=== PATIENT | female | born 1960 | race Caucasian/White ===

== ENCOUNTER 2016-03-20 19:00 | Inpatient (IN) | payer OTHER ==
[~2016-03-20] VITALS: Ht 167.6 cm; Wt 93.4 kg
[2016-03-20] MEDS ORDERED: IV NORMAL SALINE 1000ML BAG 1,000 ML IV ONE (19:30)
[2016-03-20] MEDS ORDERED: ACETAMINOPHEN 500 MG TABLET PO ONE (19:30)
[2016-03-20 19:34] LABS: BASO % 1 % (0-3); EOS % 0 % (0-3); HEMATOCRIT 42.1 % (36.0-47.0); HEMOGLOBIN 14.3 g/dL (12.0-15.5); LYMPH # 0.7 x10^3/uL (1.0-4.8); LYMPH % 11 % (24-48); MEAN CORPUSCULAR HEMOGLOBIN 30 pg (25-35); MEAN CORPUSCULAR HGB CONC 34 g/dL (31-37); MEAN CORPUSCULAR VOLUME 89 fL (79-100); MONO % 7 % (0-9); NEUT % 82 % (31-73); PLATELET COUNT 171 x10^3/uL (140-400); RED BLOOD COUNT 4.75 x10^6/uL (3.50-5.40); RED CELL DISTRIBUTION WIDTH 13.3 % (11.5-14.5); WHITE BLOOD COUNT 6.7 x10^3/uL (4.0-11.0)
[2016-03-20 19:48] LABS: CREATININE 0.9 mg/dL (0.6-1.0); GFR 64.8; POTASSIUM 3.7 mmol/L (3.5-5.1)
[2016-03-20 19:54] LABS: ALBUMIN 3.8 g/dL (3.4-5.0); ALBUMIN/GLOBULIN RATIO 0.9 (1.0-1.7); TOTAL BILIRUBIN 0.4 mg/dL (0.2-1.0)
[2016-03-20 20:03] LABS: OBC FLU VALID
[2016-03-20] MEDS ORDERED: IPRATRPIUM/ALBUTEROL 0.5/2.5MG 3 ML NEBU. ONE (20:26)
[2016-03-20] MEDS ORDERED: IPRATRPIUM/ALBUTEROL 0.5/2.5MG 3 ML NEBU. NEB ONE (20:30)
--- NOTE | 2016-03-20 21:30 | EKG ---
[facility] [address] [place] [address] Test Date: 2016-03-20 Test Time: 19:16:56 Pat Name: MELY GRAY Department: Room: Gender: F Air Conditioning Unit Tester: : 1960 Requested By: STEVE RIVER Order Number: [id number] Reading MD: Milagros Anderson Measurements Intervals [place] Rate: 131 P: 71 DE: 134 QRS: 58 QRSD: 72 T: 23 QT: 290 QTc: 433 Interpretive Statements SINUS TACHYCARDIA QRS(T) CONTOUR ABNORMALITY CONSIDER INFERIOR MYOCARDIAL DAMAGE ABNORMAL ECG RI6.01 No previous ECG available for comparison Electronically Signed On 03-24-2016 8:25:59 MEASUREMENT TECHNICIAN by Milagros Anderson
[2016-03-20 22:17] LABS: BILIRUBIN,URINE NEGATIVE (NEG); GLUCOSE,URINE NEGATIVE (NEG); NITRITE,URINE NEGATIVE (NEG); PROTEIN,URINE NEGATIVE (NEG-TRACE); UROBILINOGEN,URINE 0.2 mg/dL (0.2 mg/dL)
[2016-03-20 22:23] LABS: BACTERIA,URINE 0 /HPF (0-FEW); RBC,URINE 0 /HPF (0-2); WBC,URINE 0 /HPF (0-4)
[2016-03-21] VITALS (8 sets, daily range): BP systolic 90–129; BP diastolic 37–70
[2016-03-21] MEDS ORDERED: ONDANSETRON PF 4 MG/2 ML VIAL. IV PRN ×2 (00:15→12:00)
[2016-03-21] MEDS ORDERED: ACETAMINOPHEN 325 MG TABLET. PO PRN ×2 (00:15→12:00)
[2016-03-21] MEDS ORDERED: OSELTAMIVIR 75 MG CAPSULE PO ONE (00:30)
[2016-03-21] MEDS: ALBUTEROL SULFATE 2.5 MG/3 ML NEBU. NEB PRN ×2 (01:30→05:54)
--- NOTE | 2016-03-21 02:03 | ED.ADGEN ---
Past Medical History Past Medical History: Other Additional Past Medical Histor: VERTIGO Past Surgical History: Other Additional Past Surgical Histo: R. BREAST LUMPECTOMY Additional Information: 1 PPD Alcohol Use: None Drug Use: None Adult General Chief Complaint Chief Complaint: SHORTNESS OF BREATH HPI HPI Patient is a 55 year old history of vertigo, obstructive sleep apnea with CPAP , tobacco abuse, who presents to the emergency department with complaint of generalized malaise, body ache, fever, cough for the past 2 days. Patient states that she has not taken any medications at home as she has an aspirin allergy and "was not sure what I could take". States that aspirin "makes me swelling and have a rash". Patient states she stopped smoking 2 days ago due to shortness of breath and cough, states that she has chest pain after coughing repetitively, and has had soreness throughout her entire body. She did not receive a flu vaccination this year. She does not a primary care provider, denies any weakness emesis or tingling, any injuries, possible positive sick contacts. Patient noted be febrile with a temperature 102.2 orally in the emergency department, heart rate is in the 1 teens to 120s, oxygen saturation is 93% on room air. Patient does not use oxygen at baseline. Denies any productive cough. Review of Systems Review of Systems Constitutional: Fever, chills, generalized malaise. Eyes: Denies change in visual acuity. [] HENT: Denies nasal congestion or sore throat. [] Respiratory: Cough, no productive. Shortness of breath. Cardiovascular: Chest pain with cough, no edema. GI: Denies abdominal pain, nausea, vomiting, bloody stools or diarrhea. [] : Denies dysuria. [] Musculoskeletal: Denies back pain or joint pain. [] Integument: Denies rash. [] Neurologic: Denies headache, focal weakness or sensory changes. [] Endocrine: Denies polyuria or polydipsia. [] Lymphatic: Denies swollen glands. [] Psychiatric: Denies depression or anxiety. [] Current Medications Current Medications Current Medications Medications (Trade) Dose Ordered Sig/Eddie Start Time Stop Time Status Last Admin Dose Admin Acetaminophen (Tylenol) 1,000 mg 1X ONCE 03/20/16 19:30 03/20/16 20:44 DC 03/20/16 20:16 1,000 MG Albuterol/ Ipratropium (Duoneb) 3 ml 1X ONCE 03/20/16 20:30 03/20/16 20:47 DC 03/20/16 20:35 3 ML Sodium Chloride (Iv Sodium Chloride 0.9% 1000ml Bag) 1,000 ml @ 1,000 mls/hr 1X ONCE 03/20/16 19:30 03/20/16 20:44 DC 03/20/16 20:15 1,000 MLS/HR Allergies Allergies Allergies Coded Allergies Type Severity Reaction Last Updated Verified aspirin Allergy Intermediate SWELLING AND RASH 03/20/16 Yes Physical Exam Physical Exam Constitutional: Well developed, well nourished, no acute distress, mildly diaphoretic in appearance. [Nasal cannula in place.] HENT: Normocephalic, atraumatic, bilateral external ears normal, oropharynx moist, no oral exudates, nose normal. [] Eyes: PERRLA, EOMI, conjunctiva normal, no discharge. [] Neck: Normal range of motion, no tenderness, supple, no stridor. [] Cardiovascular:Heart rate regular rhythm, no murmur, S1, S2, no rubs or gallops. Mildly tachycardic. [] Lungs & Thorax: Patient with diminished breath sounds at bases bilaterally, no wheezing, rhonchi or rales appreciated, no chest wall tenderness or crepitus.] Abdomen: Bowel sounds normal, soft, obese, no rebound, rigidity, no guarding, no tenderness, no masses, no pulsatile masses. [] Skin: Warm, dry, no erythema, no rash. [] Back: No tenderness, no CVA tenderness. [] Extremities: No tenderness, no cyanosis, no clubbing, ROM intact, no edema. Negative Homans sign. [] Neurologic: Alert and oriented X 3, normal motor function, normal sensory function, no focal deficits noted. [] Psychologic: Affect normal, judgement normal, mood normal. [] Current Patient Data Vital Signs Vital Signs Date Time Temp Pulse Resp B/P Pulse Ox O2 Delivery O2 Flow Rate FiO2 03/20/16 22:56 100 20 128/60 96 Nasal Cannula 3 03/20/16 19:10 102.2 102.2 Lab Values Laboratory Tests Test 03/20/16 19:03 03/20/16 19:16 03/20/16 19:28 Urine Collection Type Unknown Urine Color Yellow Urine Clarity Clear Urine pH 6.0 Urine Specific Ackerman <=1.005 Urine Protein Negativemg/dL (NEG-TRACE) Urine Glucose (UA) Negativemg/dL (NEG) Urine Ketones (Stick) Tracemg/dL (NEG) Urine Blood Negative (NEG) Urine Nitrite Negative (NEG) Urine Bilirubin Negative (NEG) Urine Urobilinogen Dipstick 0.2mg/dL (0.2 mg/dL) Urine Leukocyte Esterase Negative (NEG) Urine RBC 0/HPF (0-2) Urine WBC 0/HPF (0-4) Urine Bacteria 0/HPF (0-FEW) White Blood Count 6.7x10^3/uL (4.0-11.0) Red Blood Count 4.75x10^6/uL (3.50-5.40) Hemoglobin 14.3g/dL (12.0-15.5) Hematocrit 42.1% (36.0-47.0) Mean Corpuscular Volume 89fL (79-100) Mean Corpuscular Hemoglobin 30pg (25-35) Mean Corpuscular Hemoglobin Concent 34g/dL (31-37) Red Cell Distribution Width 13.3% (11.5-14.5) Platelet Count 171x10^3/uL (140-400) Neutrophils (%) (Auto) 82% (31-73) H Lymphocytes (%) (Auto) 11% (24-48) L Monocytes (%) (Auto) 7% (0-9) Eosinophils (%) (Auto) 0% (0-3) Basophils (%) (Auto) 1% (0-3) Neutrophils # (Auto) 5.5x10^3uL (1.8-7.7) Lymphocytes # (Auto) 0.7x10^3/uL (1.0-4.8) L Monocytes # (Auto) 0.4x10^3/uL (0.0-1.1) Eosinophils # (Auto) 0.0x10^3/uL (0.0-0.7) Basophils # (Auto) 0.0x10^3/uL (0.0-0.2) Sodium Level 138mmol/L (136-145) Potassium Level 3.7mmol/L (3.5-5.1) Chloride Level 100mmol/L (98-107) Carbon Dioxide Level 25mmol/L (21-32) Anion Gap 13 (6-14) Blood Urea Nitrogen 12mg/dL (7-20) Creatinine 0.9mg/dL (0.6-1.0) Estimated GFR (Cockcroft-Gault) 64.8 BUN/Creatinine Ratio 13 (6-20) Glucose Level 118mg/dL (70-99) H Lactic Acid Level 1.0mmol/L (0.4-2.0) Calcium Level 9.0mg/dL (8.5-10.1) Total Bilirubin 0.4mg/dL (0.2-1.0) Aspartate Amino Transferase (AST) 33U/L (15-37) Alanine Aminotransferase (ALT) 48U/L (14-59) Alkaline Phosphatase 91U/L (46-116) Troponin I Quantitative < 0.017ng/mL (0.000-0.055) PG-Ijd-L-Type Natriuretic Peptide 44pg/mL (0-124) Total Protein 8.0g/dL (6.4-8.2) Albumin 3.8g/dL (3.4-5.0) Albumin/Globulin Ratio 0.9 (1.0-1.7) L Influenza Type A Antigen Positive (NEGATIVE) Influenza Type B Antigen Negative (NEGATIVE) Laboratory Tests 03/20/16 19:16 Laboratory Tests 03/20/16 19:16 EKG EKG 191: Sinus tachycardia, heart rate 131 bpm, upright axis, QTC of 433, MA 134, QRS 72, contour abnormalities noted in the inferior leads and anterior septal leads, abnormal ECG, does not meet STEMI criteria. [] Radiology/Procedures Radiology/Procedures Chest x-ray: One view: Patient with normal cardiopulmonary silhouette, no infiltrates or effusions, no pneumothorax, no soft tissue or bony abnormalities identified. As interpreted by me. [] Course & Med Decision Making Course & Med Decision Making Pertinent Labs and Imaging studies reviewed. (See chart for details) Patient received acetaminophen and IV fluids in the ED, along with chest x-ray was unremarkable, and basic laboratory studies which were unremarkable as well aside from a positive influenza A test. Patient's examination and history are consistent with a viral illness from influenza A. She received an inability treatment, and stated that she was feeling better, I discussed admission with the patient, she states that she did want to go home however we did ambulatory trial in the emergency department, patient's oxygen saturation did drop to 87% on room air. Patient was agreeable for [facility] that point, findings as above were discussed with Dr. Arellano of internal medicine, patient accepted to her service as a full admission to the medical telemetry floor, will continue oxygen supplementation, Tamiflu administration, IV fluids, and supportive care. Patient remained stable and comfortable, with resolution of her fever, awaiting transfer to floor. Dragon Disclaimer Dragon Disclaimer This electronic medical record was generated, in whole or in part, using a voice recognition dictation system. Departure Impression: Primary Impression: Respiratory failure Additional Impression: Influenza Disposition: 09 ADMITTED INPATIENT Admitting Physician: Other Condition: IMPROVED Problem Qualifiers Primary Impression: Respiratory failure Chronicity: acute Respiratory failure complication: hypoxia Qualified Code : J96.01 - Acute respiratory failure with hypoxia STEVE RIVER DO Mar 21, 2016 02:03
[2016-03-21] MEDS ORDERED: IPRATRPIUM/ALBUTEROL 0.5/2.5MG 3 ML NEBU. NEB SCH (08:00)
--- NOTE | 2016-03-21 08:27 | RAD ---
Indication cough and shortness of breath. A single view of the chest was obtained. No prior imaging of the chest is available. The heart and pulmonary vessels appear normal. The lungs are clear. There is no pleural fluid or pneumothorax. Bony structures appear grossly intact. IMPRESSION: No acute or focal process is seen in the chest
[2016-03-21] MEDS ORDERED: methylPREDNISolone SOD SUCC PF 40 MG/ML VIAL. IV SCH (09:00)
[2016-03-21] MEDS: OSELTAMIVIR 75 MG CAPSULE PO SCH ×2 (09:39→21:14)
--- NOTE | 2016-03-21 09:51 | ACF ---
Admission Forms Criteria RESPIRATORY FAILURE [facility] Clinical Indications for Admission to Inpatient Care (Place 'X' for any and all applicable criteria): Hospital admission is needed for appropriate care of the patient because of acute respiratory failure or insufficiency as indicated by ANY ONE of the following(1)(2)(3)(4)(5)(6)(7)(8): [X]I. Mechanical ventilation needed (acute invasive or noninvasive) [ ]II. Severe ventilation deficit as indicated by ANY ONE of the following (9) [ ]a) Respiratory acidosis (pH less than 7.32 and partial pressure of carbon dioxide greater than 40 mm Hg (5.3 kPa)) [ ]b) Partial pressure of carbon dioxide greater than 44 mm Hg (5.9 kPa ) (new) [ ]c) Airflow measurements less than 25% of predicted (eg, peak expiratory flow rate less than 100 L/minute) [ ]d) Forced vital capacity less than 15 mL/kg of ideal body weight, or 50% decrease in vital capacity from baseline [ ]III. Noncardiac pulmonary edema not resolving with rapid emergency treatment (8) [ ]IV. Severe respiratory distress as indicated by ANY ONE of the following: [ ]a) Severe tachypnea (respiratory rate greater than 30, greater than 45 for 6-month-old, greater than 60 for ) [ ]b) Severe hypoxemia (partial pressure of oxygen less than 50 mm Hg ( 6.7 kPa) on greater than 50% oxygen or partial pressure of oxygen to FIO2 ratio less than 200) [ ]c) Mental status deterioration from respiratory disease [ ]V. Airway obstruction or inadequate protection [A](10)(11) The original [employer] content created by [employer] has been revised. The portions of the content which have been revised are identified through the use of italic text or in bold, and [employer] has neither reviewed nor approved the modified material. All other unmodified content is copyright [employer]. Please see references footnoted in the original [employer] edition 2016 Admission Criteria Met?: Yes ELMO LOUIS Mar 21, 2016 09:51
[2016-03-21] MEDS ORDERED: no home meds (10:13)
[2016-03-21] MEDS ORDERED: ALBUTEROL SULFATE 2.5 MG/3 ML NEBU. NEB PRN (12:00)
[2016-03-21] MEDS: IPRATRPIUM/ALBUTEROL 0.5/2.5MG 3 ML NEBU. NEB SCH ×3 (12:00→19:48)
[2016-03-21] MEDS ORDERED: IV NORMAL SALINE 1000ML BAG 1,000 ML IV ONE (12:00)
[2016-03-21] MEDS: GUAIFENESIN 200 MG/10 ML LIQUID. PO PRN ×3 (12:22→23:42)
--- NOTE | 2016-03-21 14:00 | PDOC1 ---
History and Physical Date of Admission Date of Admission 03/21/16 Identification/Chief Complaint Chief Complaint sob Problems: Source Source: Chart review, Patient History of Present Illness History of Present Illness HPI HPI Patient is a 55 year old history of vertigo, obstructive sleep apnea with CPAP , tobacco abuse, comes for ER for generalized malaise, body ache, fever, cough for the past 2 days. Patient states that she has not taken any medications at home as she has an aspirin allergy and "was not sure what I could take". States that aspirin " makes me swelling and have a rash". Patient states she stopped smoking 2 days ago due to shortness of breath and cough, no chest pain, + body ache. She did not receive a flu vaccination this year. She does not a primary care provider, denies any weakness emesis or tingling, any injuries, possible positive sick contacts. Patient noted be febrile with a temperature 102.2 orally in the emergency department, heart rate is in the 1 teens to 120s, oxygen saturation is 93% on room air. Patient does not use oxygen at baseline. Denies any productive cough. + flu Past Medical History Past Medical History none Past Surgical History Past Surgical History: Breast Biopsy Family History Family History: No Significant, Other Social History Smoke: <1 pack per day ALCOHOL: social Drugs: None Current Problem List Problem List Problems Medical Problems: (1) Influenza Status: Acute (2) Respiratory failure Status: Acute Current Medications Current Medications Current Medications Medications (Trade) Dose Ordered Sig/Eddie Start Time Stop Time Status Last Admin Dose Admin Acetaminophen (Tylenol) 650 mg PRN Q6HRS PRN 03/21/16 12:00 Albuterol Sulfate (Ventolin Neb Soln) 2.5 mg PRN Q4HRS PRN 03/21/16 12:00 03/21/16 12:00 DC Albuterol/ Ipratropium (Duoneb) 3 ml RTQID 03/21/16 12:00 03/21/16 12:00 3 ML Enoxaparin Sodium 40 mg 40 mg Q24H 03/21/16 16:00 Guaifenesin (Robitussin) 200 mg PRN Q4HRS PRN 03/21/16 12:00 03/21/16 12:22 200 MG Methylprednisolone Sodium Succinate (Solu-Medrol 40mg Vial) 40 mg DAILY 03/22/16 09:00 Ondansetron HCl (Zofran) 4 mg PRN Q6HRS PRN 03/21/16 12:00 Oseltamivir Phosphate (Tamiflu) 75 mg BID 03/21/16 09:00 03/26/16 08:59 03/21/16 09:39 75 MG Sodium Chloride (Iv Sodium Chloride 0.9% 1000ml Bag) 1,000 ml @ 100 mls/hr 1X ONCE 03/21/16 12:00 03/21/16 21:59 03/21/16 12:22 100 MLS/HR Allergies Allergies Allergies Coded Allergies Type Severity Reaction Last Updated Verified aspirin Allergy Intermediate SWELLING AND RASH 03/20/16 Yes ROS Review of System CONSTITUTIONAL: No fever or chills EYES: No recent changes SKIN: No rash or itching CARDIOVASCULAR: No chest pain, syncope, palpitations, or edema RESPIRATORY: No SOB or cough GASTROINTESTINAL: No nausea, vomiting or abdominal pain NEUROLOGICAL: No headaches or weakness ENDOCRINE: No cold or heat intolerance GENITOURINARY: No urgency or frequency of urination MUSCULOSKELETAL: No back pain or joint pain LYMPHATICS: No enlarged lymph nodes PSYCHIATRIC: No anxiety or depression Physical Exam Physical Exam GEN.: No apparent distress. Alert and oriented. HEENT: Head is normocephalic, atraumatic NECK: Supple. LUNGS: Clear to auscultation. HEART: RRR, S1, S2 present. Peripheral pulses intact ABDOMEN: Soft, nontender. Positive bowel sounds. EXTREMITIES: Without any cyanosis. NEUROLOGIC: Normal speech, normal tone PSYCHIATRIC: Normal affect, normal mood. SKIN: No ulcerations Vitals Vitals Vital Signs Date Time Temp Pulse Resp B/P Pulse Ox O2 Delivery O2 Flow Rate FiO2 03/21/16 12:01 Nasal Cannula 1.0 03/21/16 11:00 100.6 106 18 115/53 94 100.6 Labs Labs Laboratory Tests Test 03/20/16 19:03 03/20/16 19:16 03/20/16 19:28 Urine Collection Type Unknown Urine Color Yellow Urine Clarity Clear Urine pH 6.0 Urine Specific Shelly <=1.005 Urine Protein Negativemg/dL (NEG-TRACE) Urine Glucose (UA) Negativemg/dL (NEG) Urine Ketones (Stick) Tracemg/dL (NEG) Urine Blood Negative (NEG) Urine Nitrite Negative (NEG) Urine Bilirubin Negative (NEG) Urine Urobilinogen Dipstick 0.2mg/dL (0.2 mg/dL) Urine Leukocyte Esterase Negative (NEG) Urine RBC 0/HPF (0-2) Urine WBC 0/HPF (0-4) Urine Bacteria 0/HPF (0-FEW) White Blood Count 6.7x10^3/uL (4.0-11.0) Red Blood Count 4.75x10^6/uL (3.50-5.40) Hemoglobin 14.3g/dL (12.0-15.5) Hematocrit 42.1% (36.0-47.0) Mean Corpuscular Volume 89fL (79-100) Mean Corpuscular Hemoglobin 30pg (25-35) Mean Corpuscular Hemoglobin Concent 34g/dL (31-37) Red Cell Distribution Width 13.3% (11.5-14.5) Platelet Count 171x10^3/uL (140-400) Neutrophils (%) (Auto) 82% (31-73) Lymphocytes (%) (Auto) 11% (24-48) Monocytes (%) (Auto) 7% (0-9) Eosinophils (%) (Auto) 0% (0-3) Basophils (%) (Auto) 1% (0-3) Neutrophils # (Auto) 5.5x10^3uL (1.8-7.7) Lymphocytes # (Auto) 0.7x10^3/uL (1.0-4.8) Monocytes # (Auto) 0.4x10^3/uL (0.0-1.1) Eosinophils # (Auto) 0.0x10^3/uL (0.0-0.7) Basophils # (Auto) 0.0x10^3/uL (0.0-0.2) Sodium Level 138mmol/L (136-145) Potassium Level 3.7mmol/L (3.5-5.1) Chloride Level 100mmol/L (98-107) Carbon Dioxide Level 25mmol/L (21-32) Anion Gap 13 (6-14) Blood Urea Nitrogen 12mg/dL (7-20) Creatinine 0.9mg/dL (0.6-1.0) Estimated GFR (Cockcroft-Gault) 64.8 BUN/Creatinine Ratio 13 (6-20) Glucose Level 118mg/dL (70-99) Lactic Acid Level 1.0mmol/L (0.4-2.0) Calcium Level 9.0mg/dL (8.5-10.1) Total Bilirubin 0.4mg/dL (0.2-1.0) Aspartate Amino Transf (AST/SGOT) 33U/L (15-37) Alanine Aminotransferase (ALT/SGPT) 48U/L (14-59) Alkaline Phosphatase 91U/L (46-116) Troponin I Quantitative < 0.017ng/mL (0.000-0.055) BJ-Gpv-C-Type Natriuretic Peptide 44pg/mL (0-124) Total Protein 8.0g/dL (6.4-8.2) Albumin 3.8g/dL (3.4-5.0) Albumin/Globulin Ratio 0.9 (1.0-1.7) Influenza Type A Antigen Positive (NEGATIVE) Influenza Type B Antigen Negative (NEGATIVE) Laboratory Tests Test 03/20/16 19:03 03/20/16 19:16 03/20/16 19:28 Urine Collection Type Unknown Urine Color Yellow Urine Clarity Clear Urine pH 6.0 Urine Specific Shelly <=1.005 Urine Protein Negativemg/dL (NEG-TRACE) Urine Glucose (UA) Negativemg/dL (NEG) Urine Ketones (Stick) Tracemg/dL (NEG) Urine Blood Negative (NEG) Urine Nitrite Negative (NEG) Urine Bilirubin Negative (NEG) Urine Urobilinogen Dipstick 0.2mg/dL (0.2 mg/dL) Urine Leukocyte Esterase Negative (NEG) Urine RBC 0/HPF (0-2) Urine WBC 0/HPF (0-4) Urine Bacteria 0/HPF (0-FEW) White Blood Count 6.7x10^3/uL (4.0-11.0) Red Blood Count 4.75x10^6/uL (3.50-5.40) Hemoglobin 14.3g/dL (12.0-15.5) Hematocrit 42.1% (36.0-47.0) Mean Corpuscular Volume 89fL (79-100) Mean Corpuscular Hemoglobin 30pg (25-35) Mean Corpuscular Hemoglobin Concent 34g/dL (31-37) Red Cell Distribution Width 13.3% (11.5-14.5) Platelet Count 171x10^3/uL (140-400) Neutrophils (%) (Auto) 82% (31-73) Lymphocytes (%) (Auto) 11% (24-48) Monocytes (%) (Auto) 7% (0-9) Eosinophils (%) (Auto) 0% (0-3) Basophils (%) (Auto) 1% (0-3) Neutrophils # (Auto) 5.5x10^3uL (1.8-7.7) Lymphocytes # (Auto) 0.7x10^3/uL (1.0-4.8) Monocytes # (Auto) 0.4x10^3/uL (0.0-1.1) Eosinophils # (Auto) 0.0x10^3/uL (0.0-0.7) Basophils # (Auto) 0.0x10^3/uL (0.0-0.2) Sodium Level 138mmol/L (136-145) Potassium Level 3.7mmol/L (3.5-5.1) Chloride Level 100mmol/L (98-107) Carbon Dioxide Level 25mmol/L (21-32) Anion Gap 13 (6-14) Blood Urea Nitrogen 12mg/dL (7-20) Creatinine 0.9mg/dL (0.6-1.0) Estimated GFR (Cockcroft-Gault) 64.8 BUN/Creatinine Ratio 13 (6-20) Glucose Level 118mg/dL (70-99) Lactic Acid Level 1.0mmol/L (0.4-2.0) Calcium Level 9.0mg/dL (8.5-10.1) Total Bilirubin 0.4mg/dL (0.2-1.0) Aspartate Amino Transf (AST/SGOT) 33U/L (15-37) Alanine Aminotransferase (ALT/SGPT) 48U/L (14-59) Alkaline Phosphatase 91U/L (46-116) Troponin I Quantitative < 0.017ng/mL (0.000-0.055) TW-Ukh-E-Type Natriuretic Peptide 44pg/mL (0-124) Total Protein 8.0g/dL (6.4-8.2) Albumin 3.8g/dL (3.4-5.0) Albumin/Globulin Ratio 0.9 (1.0-1.7) Influenza Type A Antigen Positive (NEGATIVE) Influenza Type B Antigen Negative (NEGATIVE) VTE Prophylaxis Ordered VTE Prophylaxis Devices: Yes VTE Pharmacological Prophylaxi: Yes Assessment/Plan Assessment/Plan 1. DYSPNEA with flu + 2. influ a+ 3. obesity 4. smoker 5. KEVEN plan: 1. pulm consult 2. cont flu treatment 3. duoneb 4. decrease solumedrol to daily 5. IVF 6. DVT, GI PPX CPAP NEWTON POWERS MD Mar 21, 2016 14:00
--- NOTE | 2016-03-21 15:35 | PDOC ---
PULMONARY PROGRESS NOTES Vitals Vital Signs Date Time Temp Pulse Resp B/P Pulse Ox O2 Delivery O2 Flow Rate FiO2 03/21/16 15:23 Nasal Cannula 1.0 03/21/16 11:00 100.6 106 18 115/53 94 100.6 Labs Laboratory Tests Test 03/20/16 19:03 03/20/16 19:16 03/20/16 19:28 Urine Collection Type Unknown Urine Color Yellow Urine Clarity Clear Urine pH 6.0 Urine Specific [place] <=1.005 Urine Protein Negativemg/dL (NEG-TRACE) Urine Glucose (UA) Negativemg/dL (NEG) Urine Ketones (Stick) Tracemg/dL (NEG) Urine Blood Negative (NEG) Urine Nitrite Negative (NEG) Urine Bilirubin Negative (NEG) Urine Urobilinogen Dipstick 0.2mg/dL (0.2 mg/dL) Urine Leukocyte Esterase Negative (NEG) Urine RBC 0/HPF (0-2) Urine WBC 0/HPF (0-4) Urine Bacteria 0/HPF (0-FEW) White Blood Count 6.7x10^3/uL (4.0-11.0) Red Blood Count 4.75x10^6/uL (3.50-5.40) Hemoglobin 14.3g/dL (12.0-15.5) Hematocrit 42.1% (36.0-47.0) Mean Corpuscular Volume 89fL (79-100) Mean Corpuscular Hemoglobin 30pg (25-35) Mean Corpuscular Hemoglobin Concent 34g/dL (31-37) Red Cell Distribution Width 13.3% (11.5-14.5) Platelet Count 171x10^3/uL (140-400) Neutrophils (%) (Auto) 82% (31-73) Lymphocytes (%) (Auto) 11% (24-48) Monocytes (%) (Auto) 7% (0-9) Eosinophils (%) (Auto) 0% (0-3) Basophils (%) (Auto) 1% (0-3) Neutrophils # (Auto) 5.5x10^3uL (1.8-7.7) Lymphocytes # (Auto) 0.7x10^3/uL (1.0-4.8) Monocytes # (Auto) 0.4x10^3/uL (0.0-1.1) Eosinophils # (Auto) 0.0x10^3/uL (0.0-0.7) Basophils # (Auto) 0.0x10^3/uL (0.0-0.2) Sodium Level 138mmol/L (136-145) Potassium Level 3.7mmol/L (3.5-5.1) Chloride Level 100mmol/L (98-107) Carbon Dioxide Level 25mmol/L (21-32) Anion Gap 13 (6-14) Blood Urea Nitrogen 12mg/dL (7-20) Creatinine 0.9mg/dL (0.6-1.0) Estimated GFR (Cockcroft-Gault) 64.8 BUN/Creatinine Ratio 13 (6-20) Glucose Level 118mg/dL (70-99) Lactic Acid Level 1.0mmol/L (0.4-2.0) Calcium Level 9.0mg/dL (8.5-10.1) Total Bilirubin 0.4mg/dL (0.2-1.0) Aspartate Amino Transf (AST/SGOT) 33U/L (15-37) Alanine Aminotransferase (ALT/SGPT) 48U/L (14-59) Alkaline Phosphatase 91U/L (46-116) Troponin I Quantitative < 0.017ng/mL (0.000-0.055) [id number]-Sql-[id number]-Type Natriuretic Peptide 44pg/mL (0-124) Total Protein 8.0g/dL (6.4-8.2) Albumin 3.8g/dL (3.4-5.0) Albumin/Globulin Ratio 0.9 (1.0-1.7) Influenza Type A Antigen Positive (NEGATIVE) Influenza Type B Antigen Negative (NEGATIVE) Laboratory Tests Test 03/20/16 19:03 03/20/16 19:16 03/20/16 19:28 Urine Collection Type Unknown Urine Color Yellow Urine Clarity Clear Urine pH 6.0 Urine Specific [place] <=1.005 Urine Protein Negativemg/dL (NEG-TRACE) Urine Glucose (UA) Negativemg/dL (NEG) Urine Ketones (Stick) Tracemg/dL (NEG) Urine Blood Negative (NEG) Urine Nitrite Negative (NEG) Urine Bilirubin Negative (NEG) Urine Urobilinogen Dipstick 0.2mg/dL (0.2 mg/dL) Urine Leukocyte Esterase Negative (NEG) Urine RBC 0/HPF (0-2) Urine WBC 0/HPF (0-4) Urine Bacteria 0/HPF (0-FEW) White Blood Count 6.7x10^3/uL (4.0-11.0) Red Blood Count 4.75x10^6/uL (3.50-5.40) Hemoglobin 14.3g/dL (12.0-15.5) Hematocrit 42.1% (36.0-47.0) Mean Corpuscular Volume 89fL (79-100) Mean Corpuscular Hemoglobin 30pg (25-35) Mean Corpuscular Hemoglobin Concent 34g/dL (31-37) Red Cell Distribution Width 13.3% (11.5-14.5) Platelet Count 171x10^3/uL (140-400) Neutrophils (%) (Auto) 82% (31-73) Lymphocytes (%) (Auto) 11% (24-48) Monocytes (%) (Auto) 7% (0-9) Eosinophils (%) (Auto) 0% (0-3) Basophils (%) (Auto) 1% (0-3) Neutrophils # (Auto) 5.5x10^3uL (1.8-7.7) Lymphocytes # (Auto) 0.7x10^3/uL (1.0-4.8) Monocytes # (Auto) 0.4x10^3/uL (0.0-1.1) Eosinophils # (Auto) 0.0x10^3/uL (0.0-0.7) Basophils # (Auto) 0.0x10^3/uL (0.0-0.2) Sodium Level 138mmol/L (136-145) Potassium Level 3.7mmol/L (3.5-5.1) Chloride Level 100mmol/L (98-107) Carbon Dioxide Level 25mmol/L (21-32) Anion Gap 13 (6-14) Blood Urea Nitrogen 12mg/dL (7-20) Creatinine 0.9mg/dL (0.6-1.0) Estimated GFR (Cockcroft-Gault) 64.8 BUN/Creatinine Ratio 13 (6-20) Glucose Level 118mg/dL (70-99) Lactic Acid Level 1.0mmol/L (0.4-2.0) Calcium Level 9.0mg/dL (8.5-10.1) Total Bilirubin 0.4mg/dL (0.2-1.0) Aspartate Amino Transf (AST/SGOT) 33U/L (15-37) Alanine Aminotransferase (ALT/SGPT) 48U/L (14-59) Alkaline Phosphatase 91U/L (46-116) Troponin I Quantitative < 0.017ng/mL (0.000-0.055) TJ-Wvg-N-Type Natriuretic Peptide 44pg/mL (0-124) Total Protein 8.0g/dL (6.4-8.2) Albumin 3.8g/dL (3.4-5.0) Albumin/Globulin Ratio 0.9 (1.0-1.7) Influenza Type A Antigen Positive (NEGATIVE) Influenza Type B Antigen Negative (NEGATIVE) Medications Active Scripts Medications Dose Route/Sig Days Date Category [no home meds] 03/21/16 Reported Impression . FULL NOTE DICTATED DI WITH CURRENT RX AUSTIN BENNETT MD Mar 21, 2016 15:35
[2016-03-21] MEDS: ENOXAPARIN 40 MG/0.4 ML DISP.SYRIN. SQ SCH (16:00)
[2016-03-22 02:55] VITALS: BP 132/63
--- NOTE | 2016-03-22 04:37 | CONS ---
DATE OF CONSULTATION: 03/21/2016 ATTENDING PHYSICIAN: Sidney Nicole MD REASON FOR CONSULTATION: The patient is seen in pulmonary consultation at the request of Dr. Nicole for increasing shortness of air. HISTORY OF PRESENT ILLNESS: The patient is a 55-year-old with a history of obstructive sleep apnea on CPAP at home, presented with 2-3 day history of body aches, malaise, vertigo, cough, mostly nonproductive. She was evaluated in the Emergency Room, had a chest x-ray, which I personally reviewed, there was no acute infiltrate. She had serology screen for influenza which was positive for A. She is admitted. I was asked to see her in consultation. PAST MEDICAL HISTORY: Obstructive sleep apnea, tobacco dependence, no documented history of COPD. PAST SURGICAL HISTORY: Status post breast biopsy. FAMILY HISTORY: No family history of early lung disorder. SOCIAL HISTORY: She continues to smoke. Denies any alcohol intake. REVIEW OF SYSTEMS: As indicated above, otherwise, a 10-point system was reviewed and negative. CURRENT MEDICATIONS: List was reviewed. Please see the MRAD. PHYSICAL EXAMINATION: VITAL SIGNS: She has had a T-max today of 100.6, otherwise vital signs have been stable. HEENT: Eyes, the sclerae were nonicteric. NECK: Jugular venous distention was not elevated. No lymphadenopathy. CHEST: Full expansion. LUNGS: Coarse breath sounds, no wheezes. CARDIOVASCULAR: Regular rate and rhythm with S1, S2, no S3. ABDOMEN: Soft, nontender, obese. EXTREMITIES: No clubbing, cyanosis or edema. NEUROLOGIC: The patient was awake, alert, following commands. A detailed neuro exam was not performed. LABORATORY DATA: Reviewed. Chest x-ray was normal. White count was normal. Serology was positive for influenza A. IMPRESSION: 1. Progressive dyspnea secondary to acute exacerbation of chronic obstructive pulmonary disease secondary to influenza A. 2. Influenza A. 3. Fever secondary to above. 4. Obstructive sleep apnea. 5. Morbid obesity. PLAN: 1. Continue current support with oxygen, nebulized treatments, Tamiflu. 2. The patient is instructed on the importance of discontinuing tobacco use. 3. No need for antibiotics. 4. DVT prophylaxis. I do appreciate the privilege in sharing in the patient's care. SABATO SISILLO, MD DR: AB/moe JOB#: [id number] / [id number]
[2016-03-22 05:15] LABS: BASO % 1 % (0-3); EOS % 0 % (0-3); HEMOGLOBIN 13.7 g/dL (12.0-15.5); LYMPH # 1.7 x10^3/uL (1.0-4.8); LYMPH % 40 % (24-48); MEAN CORPUSCULAR HEMOGLOBIN 30 pg (25-35); MEAN CORPUSCULAR HGB CONC 34 g/dL (31-37); MEAN CORPUSCULAR VOLUME 89 fL (79-100); MONO % 11 % (0-9); NEUT % 49 % (31-73); PLATELET COUNT 152 x10^3/uL (140-400); RED BLOOD COUNT 4.61 x10^6/uL (3.50-5.40); WHITE BLOOD COUNT 4.2 x10^3/uL (4.0-11.0)
[2016-03-22 05:57] LABS: CALCIUM 8.9 mg/dL (8.5-10.1); CREATININE 0.8 mg/dL (0.6-1.0); GFR 74.2; POTASSIUM 3.8 mmol/L (3.5-5.1)
[2016-03-22 07:00] VITALS: BP 107/68
[2016-03-22] MEDS: IPRATRPIUM/ALBUTEROL 0.5/2.5MG 3 ML NEBU. NEB SCH ×4 (07:47→21:07)
[2016-03-22] MEDS: methylPREDNISolone SOD SUCC PF 40 MG/ML VIAL. IV SCH (08:15)
[2016-03-22] MEDS: OSELTAMIVIR 75 MG CAPSULE PO SCH ×2 (08:15→21:04)
[2016-03-22 11:00] VITALS: BP 115/58
--- NOTE | 2016-03-22 11:43 | PDOC ---
PROGRESS NOTES Chief Complaint Chief Complaint SOB Influenza A ASSESSMENT AND PLAN: 1. COPD exacerbation: on steroids, nebs, suppl O2 2. Flu A: on tamiflu 3. KEVEN: on CPAP at home 4. Tobacco use: cessation counseled 5. Obesity: lifestyle changes encouraged 6. Prophylaxis: lovenox Vitals Vitals Vital Signs Date Time Temp Pulse Resp B/P Pulse Ox O2 Delivery O2 Flow Rate FiO2 03/22/16 08:00 Nasal Cannula 1.0 03/22/16 07:49 98 03/22/16 07:00 97.7 86 20 107/68 97.7 Physical Exam General: Alert, Oriented X3, Cooperative Heart: Regular rate Lungs: Wheezing Abdomen: Normal bowel sounds, Soft, No tenderness Extremities: No edema Labs LABS Laboratory Tests Test 03/22/16 04:37 White Blood Count 4.2x10^3/uL (4.0-11.0) Red Blood Count 4.61x10^6/uL (3.50-5.40) Hemoglobin 13.7g/dL (12.0-15.5) Hematocrit 41.0% (36.0-47.0) Mean Corpuscular Volume 89fL (79-100) Mean Corpuscular Hemoglobin 30pg (25-35) Mean Corpuscular Hemoglobin Concent 34g/dL (31-37) Red Cell Distribution Width 13.0% (11.5-14.5) Platelet Count 152x10^3/uL (140-400) Neutrophils (%) (Auto) 49% (31-73) Lymphocytes (%) (Auto) 40% (24-48) Monocytes (%) (Auto) 11% (0-9) Eosinophils (%) (Auto) 0% (0-3) Basophils (%) (Auto) 1% (0-3) Neutrophils # (Auto) 2.0x10^3uL (1.8-7.7) Lymphocytes # (Auto) 1.7x10^3/uL (1.0-4.8) Monocytes # (Auto) 0.5x10^3/uL (0.0-1.1) Eosinophils # (Auto) 0.0x10^3/uL (0.0-0.7) Basophils # (Auto) 0.0x10^3/uL (0.0-0.2) Sodium Level 141mmol/L (136-145) Potassium Level 3.8mmol/L (3.5-5.1) Chloride Level 105mmol/L (98-107) Carbon Dioxide Level 30mmol/L (21-32) Anion Gap 6 (6-14) Blood Urea Nitrogen 8mg/dL (7-20) Creatinine 0.8mg/dL (0.6-1.0) Estimated GFR (Cockcroft-Gault) 74.2 Glucose Level 97mg/dL (70-99) Calcium Level 8.9mg/dL (8.5-10.1) Review of Systems Review of Systems feeling a little better, gen weak, ongoing SOB Comment Review of Relevant I have reviewed the following items enma (where applicable) has been applied. Labs Laboratory Tests Test 03/20/16 19:03 03/20/16 19:16 03/20/16 19:28 03/22/16 04:37 Urine Collection Type Unknown Urine Color Yellow Urine Clarity Clear Urine pH 6.0 Urine Specific [place] <=1.005 Urine Protein Negativemg/dL (NEG-TRACE) Urine Glucose (UA) Negativemg/dL (NEG) Urine Ketones (Stick) Tracemg/dL (NEG) Urine Blood Negative (NEG) Urine Nitrite Negative (NEG) Urine Bilirubin Negative (NEG) Urine Urobilinogen Dipstick 0.2mg/dL (0.2 mg/dL) Urine Leukocyte Esterase Negative (NEG) Urine RBC 0/HPF (0-2) Urine WBC 0/HPF (0-4) Urine Bacteria 0/HPF (0-FEW) White Blood Count 6.7x10^3/uL (4.0-11.0) 4.2x10^3/uL (4.0-11.0) Red Blood Count 4.75x10^6/uL (3.50-5.40) 4.61x10^6/uL (3.50-5.40) Hemoglobin 14.3g/dL (12.0-15.5) 13.7g/dL (12.0-15.5) Hematocrit 42.1% (36.0-47.0) 41.0% (36.0-47.0) Mean Corpuscular Volume 89fL (79-100) 89fL (79-100) Mean Corpuscular Hemoglobin 30pg (25-35) 30pg (25-35) Mean Corpuscular Hemoglobin Concent 34g/dL (31-37) 34g/dL (31-37) Red Cell Distribution Width 13.3% (11.5-14.5) 13.0% (11.5-14.5) Platelet Count 171x10^3/uL (140-400) 152x10^3/uL (140-400) Neutrophils (%) (Auto) 82% (31-73) 49% (31-73) Lymphocytes (%) (Auto) 11% (24-48) 40% (24-48) Monocytes (%) (Auto) 7% (0-9) 11% (0-9) Eosinophils (%) (Auto) 0% (0-3) 0% (0-3) Basophils (%) (Auto) 1% (0-3) 1% (0-3) Neutrophils # (Auto) 5.5x10^3uL (1.8-7.7) 2.0x10^3uL (1.8-7.7) Lymphocytes # (Auto) 0.7x10^3/uL (1.0-4.8) 1.7x10^3/uL (1.0-4.8) Monocytes # (Auto) 0.4x10^3/uL (0.0-1.1) 0.5x10^3/uL (0.0-1.1) Eosinophils # (Auto) 0.0x10^3/uL (0.0-0.7) 0.0x10^3/uL (0.0-0.7) Basophils # (Auto) 0.0x10^3/uL (0.0-0.2) 0.0x10^3/uL (0.0-0.2) Sodium Level 138mmol/L (136-145) 141mmol/L (136-145) Potassium Level 3.7mmol/L (3.5-5.1) 3.8mmol/L (3.5-5.1) Chloride Level 100mmol/L (98-107) 105mmol/L (98-107) Carbon Dioxide Level 25mmol/L (21-32) 30mmol/L (21-32) Anion Gap 13 (6-14) 6 (6-14) Blood Urea Nitrogen 12mg/dL (7-20) 8mg/dL (7-20) Creatinine 0.9mg/dL (0.6-1.0) 0.8mg/dL (0.6-1.0) Estimated GFR (Cockcroft-Gault) 64.8 74.2 BUN/Creatinine Ratio 13 (6-20) Glucose Level 118mg/dL (70-99) 97mg/dL (70-99) Lactic Acid Level 1.0mmol/L (0.4-2.0) Calcium Level 9.0mg/dL (8.5-10.1) 8.9mg/dL (8.5-10.1) Total Bilirubin 0.4mg/dL (0.2-1.0) Aspartate Amino Transf (AST/SGOT) 33U/L (15-37) Alanine Aminotransferase (ALT/SGPT) 48U/L (14-59) Alkaline Phosphatase 91U/L (46-116) Troponin I Quantitative < 0.017ng/mL (0.000-0.055) EL-Pfc-Z-Type Natriuretic Peptide 44pg/mL (0-124) Total Protein 8.0g/dL (6.4-8.2) Albumin 3.8g/dL (3.4-5.0) Albumin/Globulin Ratio 0.9 (1.0-1.7) Influenza Type A Antigen Positive (NEGATIVE) Influenza Type B Antigen Negative (NEGATIVE) Laboratory Tests Test 03/22/16 04:37 White Blood Count 4.2x10^3/uL (4.0-11.0) Red Blood Count 4.61x10^6/uL (3.50-5.40) Hemoglobin 13.7g/dL (12.0-15.5) Hematocrit 41.0% (36.0-47.0) Mean Corpuscular Volume 89fL (79-100) Mean Corpuscular Hemoglobin 30pg (25-35) Mean Corpuscular Hemoglobin Concent 34g/dL (31-37) Red Cell Distribution Width 13.0% (11.5-14.5) Platelet Count 152x10^3/uL (140-400) Neutrophils (%) (Auto) 49% (31-73) Lymphocytes (%) (Auto) 40% (24-48) Monocytes (%) (Auto) 11% (0-9) Eosinophils (%) (Auto) 0% (0-3) Basophils (%) (Auto) 1% (0-3) Neutrophils # (Auto) 2.0x10^3uL (1.8-7.7) Lymphocytes # (Auto) 1.7x10^3/uL (1.0-4.8) Monocytes # (Auto) 0.5x10^3/uL (0.0-1.1) Eosinophils # (Auto) 0.0x10^3/uL (0.0-0.7) Basophils # (Auto) 0.0x10^3/uL (0.0-0.2) Sodium Level 141mmol/L (136-145) Potassium Level 3.8mmol/L (3.5-5.1) Chloride Level 105mmol/L (98-107) Carbon Dioxide Level 30mmol/L (21-32) Anion Gap 6 (6-14) Blood Urea Nitrogen 8mg/dL (7-20) Creatinine 0.8mg/dL (0.6-1.0) Estimated GFR (Cockcroft-Gault) 74.2 Glucose Level 97mg/dL (70-99) Calcium Level 8.9mg/dL (8.5-10.1) Medications Current Medications Sodium Chloride (Iv Sodium Chloride 0.9% 1000ml Bag) 1,000 ml @ 1,000 mls/hr 1X ONCE IV Last administered on 03/20/16 20:15; Start 03/20/16 at 19:30; Stop 03/20/16 at 20:44; Status DC Acetaminophen (Tylenol) 1,000 mg 1X ONCE PO Last administered on 03/20/16 20: 16; Start 03/20/16 at 19:30; Stop 03/20/16 at 20:44; Status DC Albuterol/ Ipratropium (Duoneb) 3 ml STK-MED ONCE .ROUTE ; Start 03/20/16 at 20: 26; Stop 03/20/16 at 20:27; Status DC Albuterol/ Ipratropium (Duoneb) 3 ml 1X ONCE NEB Last administered on 20:35; Start 03/20/16 at 20:30; Stop 03/20/16 at 20:47; Status DC Ondansetron HCl (Zofran) 4 mg PRN Q8HRS PRN IV NAUSEA/VOMITING; Start 03/21/16 at 00:15; Stop 03/21/16 at 11:55; Status DC Acetaminophen (Tylenol) 650 mg PRN Q4HRS PRN PO FEVER Last administered on 11:03; Start 03/21/16 at 00:15; Stop 03/22/16 at 00:14; Status DC Albuterol/ Ipratropium (Duoneb) 3 ml RTQID NEB Last administered on 03/21/16 07 :11; Start 03/21/16 at 08:00; Stop 03/21/16 at 11:55; Status DC Methylprednisolone Sodium Succinate (Solu-Medrol 40mg Vial) 40 mg Q12HR IV Last administered on 03/21/16 09:39; Start 03/21/16 at 09:00; Stop 03/21/16 at 11: 52; Status DC Oseltamivir Phosphate (Tamiflu) 75 mg 1X ONCE PO Last administered on 01:19; Start 03/21/16 at 00:30; Stop 03/21/16 at 00:31; Status DC Oseltamivir Phosphate (Tamiflu) 75 mg BID PO Last administered on 03/22/16 08: 15; Start 03/21/16 at 09:00; Stop 03/26/16 at 08:59 Albuterol Sulfate (Ventolin Neb Soln) 2.5 mg PRN Q2HRS PRN NEB SHORTNESS OF BREATH Last administered on 03/21/16 05:54; Start 03/21/16 at 01:15 Methylprednisolone Sodium Succinate (Solu-Medrol 40mg Vial) 40 mg DAILY IV Last administered on 03/22/16 08:15; Start 03/22/16 at 09:00 Acetaminophen (Tylenol) 650 mg PRN Q6HRS PRN PO MILD PAIN / TEMP; Start at 12:00 Ondansetron HCl (Zofran) 4 mg PRN Q6HRS PRN IV NAUSEA/VOMITING 1ST CHOICE; Start 03/21/16 at 12:00 Albuterol/ Ipratropium (Duoneb) 3 ml RTQID NEB Last administered on 03/22/16 07 :47; Start 03/21/16 at 12:00 Albuterol Sulfate (Ventolin Neb Soln) 2.5 mg PRN Q4HRS PRN NEB SHORTNESS OF BREATH; Start 03/21/16 at 12:00; Stop 03/21/16 at 12:00; Status DC Guaifenesin (Robitussin) 200 mg PRN Q4HRS PRN PO COUGH Last administered on 03/21 23:42; Start 03/21/16 at 12:00 Enoxaparin Sodium 40 mg 40 mg Q24H SQ ; Start 03/21/16 at 16:00 Sodium Chloride (Iv Sodium Chloride 0.9% 1000ml Bag) 1,000 ml @ 100 mls/hr 1X ONCE IV Last administered on 03/21/16 12:22; Start 03/21/16 at 12:00; Stop at 21:59; Status DC Active Scripts Active Reported [no home meds] Vitals/I & O Vital Sign - Last 24 Hours 03/21/16 03/21/16 03/21/16 03/21/16 12:01 15:00 15:23 19:00 Temp 98.1 99.0 98.1 99.0 Pulse 91 86 Resp 18 21 B/P 90/60 117/63 Pulse Ox 92 95 O2 Delivery Nasal Cannula Nasal Cannula Nasal Cannula O2 Flow Rate 1.0 1.0 3.0 03/21/16 03/21/16 03/21/16 03/22/16 19:49 20:00 22:49 02:55 Temp 97.9 97.7 97.9 97.7 Pulse 75 78 Resp 20 20 B/P 98/37 132/63 Pulse Ox 97 95 95 O2 Delivery Nasal Cannula Nasal Cannula Nasal Cannula Nasal Cannula O2 Flow Rate 1.0 1.5 3.0 1.5 03/22/16 03/22/16 03/22/16 07:00 07:49 08:00 Temp 97.7 97.7 Pulse 86 Resp 20 B/P 107/68 Pulse Ox 96 98 O2 Delivery Room Air Nasal Cannula Nasal Cannula O2 Flow Rate 1.0 1.0 Intake and Output 03/21/16 03/21/16 03/22/16 15:00 23:00 07:00 Intake Total 118 ml 200 ml 3000 ml Output Total 450 ml Balance 118 ml -250 ml 3000 ml GAYATRI MAY MD Mar 22, 2016 11:43
--- NOTE | 2016-03-22 14:15 | PDOC ---
PULMONARY PROGRESS NOTES Subjective PT FEELS BETTER LESS SOA Vitals Vital Signs Date Time Temp Pulse Resp B/P Pulse Ox O2 Delivery O2 Flow Rate FiO2 03/22/16 12:03 Nasal Cannula 1.0 03/22/16 11:00 97.7 94 24 115/58 93 97.7 Labs Laboratory Tests Test 03/20/16 19:03 03/20/16 19:16 03/20/16 19:28 03/22/16 04:37 Urine Collection Type Unknown Urine Color Yellow Urine Clarity Clear Urine pH 6.0 Urine Specific [place] <=1.005 Urine Protein Negativemg/dL (NEG-TRACE) Urine Glucose (UA) Negativemg/dL (NEG) Urine Ketones (Stick) Tracemg/dL (NEG) Urine Blood Negative (NEG) Urine Nitrite Negative (NEG) Urine Bilirubin Negative (NEG) Urine Urobilinogen Dipstick 0.2mg/dL (0.2 mg/dL) Urine Leukocyte Esterase Negative (NEG) Urine RBC 0/HPF (0-2) Urine WBC 0/HPF (0-4) Urine Bacteria 0/HPF (0-FEW) White Blood Count 6.7x10^3/uL (4.0-11.0) 4.2x10^3/uL (4.0-11.0) Red Blood Count 4.75x10^6/uL (3.50-5.40) 4.61x10^6/uL (3.50-5.40) Hemoglobin 14.3g/dL (12.0-15.5) 13.7g/dL (12.0-15.5) Hematocrit 42.1% (36.0-47.0) 41.0% (36.0-47.0) Mean Corpuscular Volume 89fL (79-100) 89fL (79-100) Mean Corpuscular Hemoglobin 30pg (25-35) 30pg (25-35) Mean Corpuscular Hemoglobin Concent 34g/dL (31-37) 34g/dL (31-37) Red Cell Distribution Width 13.3% (11.5-14.5) 13.0% (11.5-14.5) Platelet Count 171x10^3/uL (140-400) 152x10^3/uL (140-400) Neutrophils (%) (Auto) 82% (31-73) 49% (31-73) Lymphocytes (%) (Auto) 11% (24-48) 40% (24-48) Monocytes (%) (Auto) 7% (0-9) 11% (0-9) Eosinophils (%) (Auto) 0% (0-3) 0% (0-3) Basophils (%) (Auto) 1% (0-3) 1% (0-3) Neutrophils # (Auto) 5.5x10^3uL (1.8-7.7) 2.0x10^3uL (1.8-7.7) Lymphocytes # (Auto) 0.7x10^3/uL (1.0-4.8) 1.7x10^3/uL (1.0-4.8) Monocytes # (Auto) 0.4x10^3/uL (0.0-1.1) 0.5x10^3/uL (0.0-1.1) Eosinophils # (Auto) 0.0x10^3/uL (0.0-0.7) 0.0x10^3/uL (0.0-0.7) Basophils # (Auto) 0.0x10^3/uL (0.0-0.2) 0.0x10^3/uL (0.0-0.2) Sodium Level 138mmol/L (136-145) 141mmol/L (136-145) Potassium Level 3.7mmol/L (3.5-5.1) 3.8mmol/L (3.5-5.1) Chloride Level 100mmol/L (98-107) 105mmol/L (98-107) Carbon Dioxide Level 25mmol/L (21-32) 30mmol/L (21-32) Anion Gap 13 (6-14) 6 (6-14) Blood Urea Nitrogen 12mg/dL (7-20) 8mg/dL (7-20) Creatinine 0.9mg/dL (0.6-1.0) 0.8mg/dL (0.6-1.0) Estimated GFR (Cockcroft-Gault) 64.8 74.2 BUN/Creatinine Ratio 13 (6-20) Glucose Level 118mg/dL (70-99) 97mg/dL (70-99) Lactic Acid Level 1.0mmol/L (0.4-2.0) Calcium Level 9.0mg/dL (8.5-10.1) 8.9mg/dL (8.5-10.1) Total Bilirubin 0.4mg/dL (0.2-1.0) Aspartate Amino Transf (AST/SGOT) 33U/L (15-37) Alanine Aminotransferase (ALT/SGPT) 48U/L (14-59) Alkaline Phosphatase 91U/L (46-116) Troponin I Quantitative < 0.017ng/mL (0.000-0.055) UB-Kra-T-Type Natriuretic Peptide 44pg/mL (0-124) Total Protein 8.0g/dL (6.4-8.2) Albumin 3.8g/dL (3.4-5.0) Albumin/Globulin Ratio 0.9 (1.0-1.7) Influenza Type A Antigen Positive (NEGATIVE) Influenza Type B Antigen Negative (NEGATIVE) Laboratory Tests Test 03/22/16 04:37 White Blood Count 4.2x10^3/uL (4.0-11.0) Red Blood Count 4.61x10^6/uL (3.50-5.40) Hemoglobin 13.7g/dL (12.0-15.5) Hematocrit 41.0% (36.0-47.0) Mean Corpuscular Volume 89fL (79-100) Mean Corpuscular Hemoglobin 30pg (25-35) Mean Corpuscular Hemoglobin Concent 34g/dL (31-37) Red Cell Distribution Width 13.0% (11.5-14.5) Platelet Count 152x10^3/uL (140-400) Neutrophils (%) (Auto) 49% (31-73) Lymphocytes (%) (Auto) 40% (24-48) Monocytes (%) (Auto) 11% (0-9) Eosinophils (%) (Auto) 0% (0-3) Basophils (%) (Auto) 1% (0-3) Neutrophils # (Auto) 2.0x10^3uL (1.8-7.7) Lymphocytes # (Auto) 1.7x10^3/uL (1.0-4.8) Monocytes # (Auto) 0.5x10^3/uL (0.0-1.1) Eosinophils # (Auto) 0.0x10^3/uL (0.0-0.7) Basophils # (Auto) 0.0x10^3/uL (0.0-0.2) Sodium Level 141mmol/L (136-145) Potassium Level 3.8mmol/L (3.5-5.1) Chloride Level 105mmol/L (98-107) Carbon Dioxide Level 30mmol/L (21-32) Anion Gap 6 (6-14) Blood Urea Nitrogen 8mg/dL (7-20) Creatinine 0.8mg/dL (0.6-1.0) Estimated GFR (Cockcroft-Gault) 74.2 Glucose Level 97mg/dL (70-99) Calcium Level 8.9mg/dL (8.5-10.1) Medications Active Scripts Medications Dose Route/Sig Days Date Category [no home meds] 03/21/16 Reported Impression . 1. Progressive dyspnea secondary to acute exacerbation of chronic obstructive pulmonary disease secondary to influenza A. 2. Influenza A. 3. Fever secondary to above. 4. Obstructive sleep apnea. 5. Morbid obesity. Plan . PT BETTER TODAY LESS WHEEZE NO FEVER WILL CONTINUE THE SAME AUSTIN BENNETT MD Mar 22, 2016 14:15
[2016-03-22 15:00] VITALS: BP 118/57
[2016-03-22] MEDS: ENOXAPARIN 40 MG/0.4 ML DISP.SYRIN. SQ SCH (16:00)
[2016-03-22 19:35] VITALS: BP 120/61
[2016-03-22 23:35] VITALS: BP 104/47
[2016-03-23 03:30] VITALS: BP 118/67
[2016-03-23] MEDS: ALBUTEROL SULFATE 2.5 MG/3 ML NEBU. NEB PRN (03:50)
[2016-03-23] MEDS: IPRATRPIUM/ALBUTEROL 0.5/2.5MG 3 ML NEBU. NEB SCH ×4 (07:25→18:18)
[2016-03-23 07:30] VITALS: BP 103/43
[2016-03-23] MEDS: methylPREDNISolone SOD SUCC PF 40 MG/ML VIAL. IV SCH (08:45)
[2016-03-23] MEDS: OSELTAMIVIR 75 MG CAPSULE PO SCH ×2 (08:46→20:42)
[2016-03-23] MEDS: GUAIFENESIN 200 MG/10 ML LIQUID. PO PRN (08:59)
[2016-03-23 10:44] VITALS: BP 121/61
--- NOTE | 2016-03-23 11:18 | PDOC ---
PROGRESS NOTES Chief Complaint Chief Complaint SOB Influenza A ASSESSMENT AND PLAN: 1. COPD exacerbation: improving. on steroids, nebs, suppl O2 2. Flu A: on tamiflu 3. KEVEN: on CPAP at home 4. Tobacco use: cessation counseled 5. Obesity: lifestyle changes encouraged 6. Prophylaxis: lovenox Vitals Vitals Vital Signs Date Time Temp Pulse Resp B/P Pulse Ox O2 Delivery O2 Flow Rate FiO2 03/23/16 10:44 97.7 86 17 121/61 97 Nasal Cannula 1.5 97.7 Physical Exam General: Alert, Oriented X3, Cooperative Heart: Regular rate Lungs: Wheezing (improved) Abdomen: Normal bowel sounds, Soft, No tenderness Extremities: No edema Review of Systems Review of Systems breathing better, +cough Comment Review of Relevant I have reviewed the following items enma (where applicable) has been applied. Labs Laboratory Tests Test 03/22/16 04:37 White Blood Count 4.2x10^3/uL (4.0-11.0) Red Blood Count 4.61x10^6/uL (3.50-5.40) Hemoglobin 13.7g/dL (12.0-15.5) Hematocrit 41.0% (36.0-47.0) Mean Corpuscular Volume 89fL (79-100) Mean Corpuscular Hemoglobin 30pg (25-35) Mean Corpuscular Hemoglobin Concent 34g/dL (31-37) Red Cell Distribution Width 13.0% (11.5-14.5) Platelet Count 152x10^3/uL (140-400) Neutrophils (%) (Auto) 49% (31-73) Lymphocytes (%) (Auto) 40% (24-48) Monocytes (%) (Auto) 11% (0-9) Eosinophils (%) (Auto) 0% (0-3) Basophils (%) (Auto) 1% (0-3) Neutrophils # (Auto) 2.0x10^3uL (1.8-7.7) Lymphocytes # (Auto) 1.7x10^3/uL (1.0-4.8) Monocytes # (Auto) 0.5x10^3/uL (0.0-1.1) Eosinophils # (Auto) 0.0x10^3/uL (0.0-0.7) Basophils # (Auto) 0.0x10^3/uL (0.0-0.2) Sodium Level 141mmol/L (136-145) Potassium Level 3.8mmol/L (3.5-5.1) Chloride Level 105mmol/L (98-107) Carbon Dioxide Level 30mmol/L (21-32) Anion Gap 6 (6-14) Blood Urea Nitrogen 8mg/dL (7-20) Creatinine 0.8mg/dL (0.6-1.0) Estimated GFR (Cockcroft-Gault) 74.2 Glucose Level 97mg/dL (70-99) Calcium Level 8.9mg/dL (8.5-10.1) Medications Current Medications Sodium Chloride (Iv Sodium Chloride 0.9% 1000ml Bag) 1,000 ml @ 1,000 mls/hr 1X ONCE IV Last administered on 03/20/16 20:15; Start 03/20/16 at 19:30; Stop 03/20/16 at 20:44; Status DC Acetaminophen (Tylenol) 1,000 mg 1X ONCE PO Last administered on 03/20/16 20: 16; Start 03/20/16 at 19:30; Stop 03/20/16 at 20:44; Status DC Albuterol/ Ipratropium (Duoneb) 3 ml STK-MED ONCE .ROUTE ; Start 03/20/16 at 20: 26; Stop 03/20/16 at 20:27; Status DC Albuterol/ Ipratropium (Duoneb) 3 ml 1X ONCE NEB Last administered on 20:35; Start 03/20/16 at 20:30; Stop 03/20/16 at 20:47; Status DC Ondansetron HCl (Zofran) 4 mg PRN Q8HRS PRN IV NAUSEA/VOMITING; Start 03/21/16 at 00:15; Stop 03/21/16 at 11:55; Status DC Acetaminophen (Tylenol) 650 mg PRN Q4HRS PRN PO FEVER Last administered on 11:03; Start 03/21/16 at 00:15; Stop 03/22/16 at 00:14; Status DC Albuterol/ Ipratropium (Duoneb) 3 ml RTQID NEB Last administered on 03/21/16 07 :11; Start 03/21/16 at 08:00; Stop 03/21/16 at 11:55; Status DC Methylprednisolone Sodium Succinate (Solu-Medrol 40mg Vial) 40 mg Q12HR IV Last administered on 03/21/16 09:39; Start 03/21/16 at 09:00; Stop 03/21/16 at 11: 52; Status DC Oseltamivir Phosphate (Tamiflu) 75 mg 1X ONCE PO Last administered on 01:19; Start 03/21/16 at 00:30; Stop 03/21/16 at 00:31; Status DC Oseltamivir Phosphate (Tamiflu) 75 mg BID PO Last administered on 03/23/16 08: 46; Start 03/21/16 at 09:00; Stop 03/26/16 at 08:59 Albuterol Sulfate (Ventolin Neb Soln) 2.5 mg PRN Q2HRS PRN NEB SHORTNESS OF BREATH Last administered on 03/23/16 03:50; Start 03/21/16 at 01:15 Methylprednisolone Sodium Succinate (Solu-Medrol 40mg Vial) 40 mg DAILY IV Last administered on 03/23/16 08:45; Start 03/22/16 at 09:00 Acetaminophen (Tylenol) 650 mg PRN Q6HRS PRN PO MILD PAIN / TEMP; Start at 12:00 Ondansetron HCl (Zofran) 4 mg PRN Q6HRS PRN IV NAUSEA/VOMITING 1ST CHOICE; Start 03/21/16 at 12:00 Albuterol/ Ipratropium (Duoneb) 3 ml RTQID NEB Last administered on 03/23/16 07 :25; Start 03/21/16 at 12:00 Albuterol Sulfate (Ventolin Neb Soln) 2.5 mg PRN Q4HRS PRN NEB SHORTNESS OF BREATH; Start 03/21/16 at 12:00; Stop 03/21/16 at 12:00; Status DC Guaifenesin (Robitussin) 200 mg PRN Q4HRS PRN PO COUGH Last administered on 03/23 08:59; Start 03/21/16 at 12:00 Enoxaparin Sodium 40 mg 40 mg Q24H SQ ; Start 03/21/16 at 16:00 Sodium Chloride (Iv Sodium Chloride 0.9% 1000ml Bag) 1,000 ml @ 100 mls/hr 1X ONCE IV Last administered on 03/21/16t 12:22; Start 03/21/16 at 12:00; Stop at 21:59; Status DC Active Scripts Active Reported [no home meds] Vitals/I & O Vital Sign - Last 24 Hours 03/22/16 03/22/16 03/22/16 03/22/16 12:03 15:00 16:19 19:35 Temp 97.7 97.7 97.7 97.7 Pulse 79 78 Resp 22 24 B/P 118/57 120/61 Pulse Ox 97 95 O2 Delivery Nasal Cannula Nasal Cannula Nasal Cannula Nasal Cannula O2 Flow Rate 1.0 2.0 1.0 2.0 03/22/16 03/22/16 03/22/16 03/23/16 20:00 21:07 23:35 03:30 Temp 97.4 97.9 97.4 97.9 Pulse 85 86 Resp 20 20 B/P 104/47 118/67 Pulse Ox 96 97 97 O2 Delivery Nasal Cannula Nasal Cannula Nasal Cannula Nasal Cannula O2 Flow Rate 3.0 1.5 2.0 2.0 03/23/16 03/23/16 03/23/16 03/23/16 03:51 07:26 07:30 08:00 Temp 97.7 97.7 Pulse 79 Resp 18 B/P 103/43 Pulse Ox 93 94 95 O2 Delivery Nasal Cannula Nasal Cannula Nasal Cannula Nasal Cannula O2 Flow Rate 1.5 1.5 1.5 1.5 03/23/16 10:44 Temp 97.7 97.7 Pulse 86 Resp 17 B/P 121/61 Pulse Ox 97 O2 Delivery Nasal Cannula O2 Flow Rate 1.5 Intake and Output 03/22/16 03/22/16 03/23/16 15:00 23:00 07:00 Intake Total 380 ml 400 ml Output Total 500 ml Balance -120 ml 400 ml GAYATRI MAY MD Mar 23, 2016 11:18
--- NOTE | 2016-03-23 11:36 | PDOC ---
PULMONARY PROGRESS NOTES Subjective PT FEELS BETTER LESS SOA Vitals Vital Signs Date Time Temp Pulse Resp B/P Pulse Ox O2 Delivery O2 Flow Rate FiO2 03/23/16 10:44 97.7 86 17 121/61 97 Nasal Cannula 1.5 97.7 ROS: No Nausea, No Chest Pain, No Abdominal Pain, No Increase Cough Lungs: Wheezing Cardiovascular: S1, S2 Abdomen: Soft Neuro Exam: Alert Extremities: No Edema Skin: Warm Labs Laboratory Tests Test 03/22/16 04:37 White Blood Count 4.2x10^3/uL (4.0-11.0) Red Blood Count 4.61x10^6/uL (3.50-5.40) Hemoglobin 13.7g/dL (12.0-15.5) Hematocrit 41.0% (36.0-47.0) Mean Corpuscular Volume 89fL (79-100) Mean Corpuscular Hemoglobin 30pg (25-35) Mean Corpuscular Hemoglobin Concent 34g/dL (31-37) Red Cell Distribution Width 13.0% (11.5-14.5) Platelet Count 152x10^3/uL (140-400) Neutrophils (%) (Auto) 49% (31-73) Lymphocytes (%) (Auto) 40% (24-48) Monocytes (%) (Auto) 11% (0-9) Eosinophils (%) (Auto) 0% (0-3) Basophils (%) (Auto) 1% (0-3) Neutrophils # (Auto) 2.0x10^3uL (1.8-7.7) Lymphocytes # (Auto) 1.7x10^3/uL (1.0-4.8) Monocytes # (Auto) 0.5x10^3/uL (0.0-1.1) Eosinophils # (Auto) 0.0x10^3/uL (0.0-0.7) Basophils # (Auto) 0.0x10^3/uL (0.0-0.2) Sodium Level 141mmol/L (136-145) Potassium Level 3.8mmol/L (3.5-5.1) Chloride Level 105mmol/L (98-107) Carbon Dioxide Level 30mmol/L (21-32) Anion Gap 6 (6-14) Blood Urea Nitrogen 8mg/dL (7-20) Creatinine 0.8mg/dL (0.6-1.0) Estimated GFR (Cockcroft-Gault) 74.2 Glucose Level 97mg/dL (70-99) Calcium Level 8.9mg/dL (8.5-10.1) Medications Active Scripts Medications Dose Route/Sig Days Date Category [no home meds] 03/21/16 Reported Impression . 1. Progressive dyspnea secondary to acute exacerbation of chronic obstructive pulmonary disease secondary to influenza A. 2. Influenza A. 3. Fever secondary to above. 4. Obstructive sleep apnea. 5. Morbid obesity. Plan . PT BETTER TODAY LESS WHEEZE NO FEVER WILL CONTINUE THE SAME AUSTIN BENNETT MD Mar 23, 2016 11:36
[2016-03-23 15:10] VITALS: BP 114/46
[2016-03-23] MEDS: BENZONATATE 100 MG CAPSULE. PO SCH ×2 (15:58→20:42)
[2016-03-23] MEDS: ENOXAPARIN 40 MG/0.4 ML DISP.SYRIN. SQ SCH (15:58)
[2016-03-23] MEDS: PREDNISONE 20 MG TABLET PO SCH (17:52)
[2016-03-23 19:00] VITALS: BP 103/42
[2016-03-23 23:00] VITALS: BP 112/63
[2016-03-24 03:00] VITALS: BP 121/64
[2016-03-24 04:05] LABS: HEMATOCRIT 42.3 % (36.0-47.0); RED BLOOD COUNT 4.71 x10^6/uL (3.50-5.40); RED CELL DISTRIBUTION WIDTH 13.1 % (11.5-14.5); WHITE BLOOD COUNT 5.8 x10^3/uL (4.0-11.0)
[2016-03-24 04:21] LABS: CALCIUM 9.2 mg/dL (8.5-10.1); CREATININE 0.8 mg/dL (0.6-1.0); GFR 74.2; POTASSIUM 4.2 mmol/L (3.5-5.1)
[2016-03-24 07:56] VITALS: BP 117/89
[2016-03-24] MEDS: OSELTAMIVIR 75 MG CAPSULE PO SCH ×2 (09:05→20:48)
[2016-03-24] MEDS: PREDNISONE 20 MG TABLET PO SCH (09:05)
[2016-03-24] MEDS: BENZONATATE 100 MG CAPSULE. PO SCH ×2 (09:05→20:48)
[2016-03-24] MEDS: IPRATRPIUM/ALBUTEROL 0.5/2.5MG 3 ML NEBU. NEB SCH ×4 (09:15→19:15)
--- NOTE | 2016-03-24 09:44 | PDOC ---
PULMONARY PROGRESS NOTES Subjective Some SOA today Vitals Vital Signs Date Time Temp Pulse Resp B/P Pulse Ox O2 Delivery O2 Flow Rate FiO2 03/24/16 09:17 95 Nasal Cannula 1.0 03/24/16 07:56 98.1 91 18 117/89 98.1 ROS: No Nausea, No Chest Pain, No Abdominal Pain, No Increase Cough General: Alert, Oriented X4 Lungs: Wheezing (faint) Cardiovascular: S1, S2 Abdomen: Soft Neuro Exam: Alert Extremities: No Edema Skin: Warm Labs Laboratory Tests Test 03/24/16 03:35 White Blood Count 5.8x10^3/uL (4.0-11.0) Red Blood Count 4.71x10^6/uL (3.50-5.40) Hemoglobin 14.0g/dL (12.0-15.5) Hematocrit 42.3% (36.0-47.0) Mean Corpuscular Volume 90fL (79-100) Mean Corpuscular Hemoglobin 30pg (25-35) Mean Corpuscular Hemoglobin Concent 33g/dL (31-37) Red Cell Distribution Width 13.1% (11.5-14.5) Platelet Count 175x10^3/uL (140-400) Sodium Level 140mmol/L (136-145) Potassium Level 4.2mmol/L (3.5-5.1) Chloride Level 102mmol/L (98-107) Carbon Dioxide Level 26mmol/L (21-32) Anion Gap 12 (6-14) Blood Urea Nitrogen 14mg/dL (7-20) Creatinine 0.8mg/dL (0.6-1.0) Estimated GFR (Cockcroft-Gault) 74.2 Glucose Level 165mg/dL (70-99) Calcium Level 9.2mg/dL (8.5-10.1) Laboratory Tests Test 03/24/16 03:35 White Blood Count 5.8x10^3/uL (4.0-11.0) Red Blood Count 4.71x10^6/uL (3.50-5.40) Hemoglobin 14.0g/dL (12.0-15.5) Hematocrit 42.3% (36.0-47.0) Mean Corpuscular Volume 90fL (79-100) Mean Corpuscular Hemoglobin 30pg (25-35) Mean Corpuscular Hemoglobin Concent 33g/dL (31-37) Red Cell Distribution Width 13.1% (11.5-14.5) Platelet Count 175x10^3/uL (140-400) Sodium Level 140mmol/L (136-145) Potassium Level 4.2mmol/L (3.5-5.1) Chloride Level 102mmol/L (98-107) Carbon Dioxide Level 26mmol/L (21-32) Anion Gap 12 (6-14) Blood Urea Nitrogen 14mg/dL (7-20) Creatinine 0.8mg/dL (0.6-1.0) Estimated GFR (Cockcroft-Gault) 74.2 Glucose Level 165mg/dL (70-99) Calcium Level 9.2mg/dL (8.5-10.1) Medications Active Scripts Medications Dose Route/Sig Days Date Category [no home meds] 03/21/16 Reported Impression . 1. Progressive dyspnea secondary to acute exacerbation of chronic obstructive pulmonary disease secondary to influenza A. 2. Influenza A. 3. Fever secondary to above.resolved 4. Obstructive sleep apnea. 5. Morbid obesity. Plan . Nebs Oxygen steroid taper tamiflu possible d/c later today or in am TYRONE AGUILAR MD Mar 24, 2016 09:44
[2016-03-24 11:00] VITALS: BP 100/63
[2016-03-24 15:00] VITALS: BP 119/75
--- NOTE | 2016-03-24 15:00 | PDOC ---
PROGRESS NOTES Chief Complaint Chief Complaint SOB Influenza A 1. COPD exacerbation: improving. on steroids, nebs, suppl 2. Flu A: on tamiflu, pleurisy and cough 3. KEVEN: on CPAP at home 4. Tobacco use: cessation counseled 5. Obesity: lifestyle changes encouraged 6. Prophylaxis: lovenox History of Present Illness History of Present Illness improving, still feels ill, does not feels ready for DC Vitals Vitals Vital Signs Date Time Temp Pulse Resp B/P Pulse Ox O2 Delivery O2 Flow Rate FiO2 03/24/16 13:00 Room Air 03/24/16 11:00 98.4 94 20 100/63 95 1.0 98.4 Physical Exam General: Alert, Oriented X3, Cooperative Heart: Regular rate Lungs: Wheezing (faint) Abdomen: Normal bowel sounds, Soft, No tenderness Extremities: No cyanosis, No edema Skin: No rashes Labs LABS Laboratory Tests Test 03/24/16 03:35 White Blood Count 5.8x10^3/uL (4.0-11.0) Red Blood Count 4.71x10^6/uL (3.50-5.40) Hemoglobin 14.0g/dL (12.0-15.5) Hematocrit 42.3% (36.0-47.0) Mean Corpuscular Volume 90fL (79-100) Mean Corpuscular Hemoglobin 30pg (25-35) Mean Corpuscular Hemoglobin Concent 33g/dL (31-37) Red Cell Distribution Width 13.1% (11.5-14.5) Platelet Count 175x10^3/uL (140-400) Sodium Level 140mmol/L (136-145) Potassium Level 4.2mmol/L (3.5-5.1) Chloride Level 102mmol/L (98-107) Carbon Dioxide Level 26mmol/L (21-32) Anion Gap 12 (6-14) Blood Urea Nitrogen 14mg/dL (7-20) Creatinine 0.8mg/dL (0.6-1.0) Estimated GFR (Cockcroft-Gault) 74.2 Glucose Level 165mg/dL (70-99) Calcium Level 9.2mg/dL (8.5-10.1) Review of Systems Review of Systems pleuritic pain, cough, dyspnea, myalgia and weakness feels terrible Assessment and Plan Assessmemt and Plan plan DC in AM Problems Medical Problems: (1) Influenza Status: Acute (2) Respiratory failure Status: Acute Problems: Comment Review of Relevant I have reviewed the following items enma (where applicable) has been applied. Labs Laboratory Tests Test 03/24/16 03:35 White Blood Count 5.8x10^3/uL (4.0-11.0) Red Blood Count 4.71x10^6/uL (3.50-5.40) Hemoglobin 14.0g/dL (12.0-15.5) Hematocrit 42.3% (36.0-47.0) Mean Corpuscular Volume 90fL (79-100) Mean Corpuscular Hemoglobin 30pg (25-35) Mean Corpuscular Hemoglobin Concent 33g/dL (31-37) Red Cell Distribution Width 13.1% (11.5-14.5) Platelet Count 175x10^3/uL (140-400) Sodium Level 140mmol/L (136-145) Potassium Level 4.2mmol/L (3.5-5.1) Chloride Level 102mmol/L (98-107) Carbon Dioxide Level 26mmol/L (21-32) Anion Gap 12 (6-14) Blood Urea Nitrogen 14mg/dL (7-20) Creatinine 0.8mg/dL (0.6-1.0) Estimated GFR (Cockcroft-Gault) 74.2 Glucose Level 165mg/dL (70-99) Calcium Level 9.2mg/dL (8.5-10.1) Laboratory Tests Test 03/24/16 03:35 White Blood Count 5.8x10^3/uL (4.0-11.0) Red Blood Count 4.71x10^6/uL (3.50-5.40) Hemoglobin 14.0g/dL (12.0-15.5) Hematocrit 42.3% (36.0-47.0) Mean Corpuscular Volume 90fL (79-100) Mean Corpuscular Hemoglobin 30pg (25-35) Mean Corpuscular Hemoglobin Concent 33g/dL (31-37) Red Cell Distribution Width 13.1% (11.5-14.5) Platelet Count 175x10^3/uL (140-400) Sodium Level 140mmol/L (136-145) Potassium Level 4.2mmol/L (3.5-5.1) Chloride Level 102mmol/L (98-107) Carbon Dioxide Level 26mmol/L (21-32) Anion Gap 12 (6-14) Blood Urea Nitrogen 14mg/dL (7-20) Creatinine 0.8mg/dL (0.6-1.0) Estimated GFR (Cockcroft-Gault) 74.2 Glucose Level 165mg/dL (70-99) Calcium Level 9.2mg/dL (8.5-10.1) Medications Current Medications Sodium Chloride (Iv Sodium Chloride 0.9% 1000ml Bag) 1,000 ml @ 1,000 mls/hr 1X ONCE IV Last administered on 03/20/16 20:15; Start 03/20/16 at 19:30; Stop 03/20/16 at 20:44; Status DC Acetaminophen (Tylenol) 1,000 mg 1X ONCE PO Last administered on 03/20/16 20: 16; Start 03/20/16 at 19:30; Stop 03/20/16 at 20:44; Status DC Albuterol/ Ipratropium (Duoneb) 3 ml STK-MED ONCE .ROUTE ; Start 03/20/16 at 20: 26; Stop 03/20/16 at 20:27; Status DC Albuterol/ Ipratropium (Duoneb) 3 ml 1X ONCE NEB Last administered on 20:35; Start 03/20/16 at 20:30; Stop 03/20/16 at 20:47; Status DC Ondansetron HCl (Zofran) 4 mg PRN Q8HRS PRN IV NAUSEA/VOMITING; Start 03/21/16 at 00:15; Stop 03/21/16 at 11:55; Status DC Acetaminophen (Tylenol) 650 mg PRN Q4HRS PRN PO FEVER Last administered on 11:03; Start 03/21/16 at 00:15; Stop 03/22/16 at 00:14; Status DC Albuterol/ Ipratropium (Duoneb) 3 ml RTQID NEB Last administered on 03/21/16 07 :11; Start 03/21/16 at 08:00; Stop 03/21/16 at 11:55; Status DC Methylprednisolone Sodium Succinate (Solu-Medrol 40mg Vial) 40 mg Q12HR IV Last administered on 03/21/16 09:39; Start 03/21/16 at 09:00; Stop 03/21/16 at 11: 52; Status DC Oseltamivir Phosphate (Tamiflu) 75 mg 1X ONCE PO Last administered on 01:19; Start 03/21/16 at 00:30; Stop 03/21/16 at 00:31; Status DC Oseltamivir Phosphate (Tamiflu) 75 mg BID PO Last administered on 03/24/16 09: 05; Start 03/21/16 at 09:00; Stop 03/26/16 at 08:59 Albuterol Sulfate (Ventolin Neb Soln) 2.5 mg PRN Q2HRS PRN NEB SHORTNESS OF BREATH Last administered on 03/23/16 03:50; Start 03/21/16 at 01:15 Methylprednisolone Sodium Succinate (Solu-Medrol 40mg Vial) 40 mg DAILY IV Last administered on 03/23/16 08:45; Start 03/22/16 at 09:00; Stop 03/23/16 at 16: 38; Status DC Acetaminophen (Tylenol) 650 mg PRN Q6HRS PRN PO MILD PAIN / TEMP; Start at 12:00 Ondansetron HCl (Zofran) 4 mg PRN Q6HRS PRN IV NAUSEA/VOMITING 1ST CHOICE; Start 03/21/16 at 12:00 Albuterol/ Ipratropium (Duoneb) 3 ml RTQID NEB Last administered on 03/24/16 13 :00; Start 03/21/16 at 12:00 Albuterol Sulfate (Ventolin Neb Soln) 2.5 mg PRN Q4HRS PRN NEB SHORTNESS OF BREATH; Start 03/21/16 at 12:00; Stop 03/21/16 at 12:00; Status DC Guaifenesin (Robitussin) 200 mg PRN Q4HRS PRN PO COUGH Last administered on 03/23 08:59; Start 03/21/16 at 12:00 Enoxaparin Sodium 40 mg 40 mg Q24H SQ ; Start 03/21/16 at 16:00 Sodium Chloride (Iv Sodium Chloride 0.9% 1000ml Bag) 1,000 ml @ 100 mls/hr 1X ONCE IV Last administered on 03/21/16 12:22; Start 03/21/16 at 12:00; Stop at 21:59; Status DC Benzonatate (Tessalon Perle) 100 mg BID PO Last administered on 03/24/16 09:05 ; Start 03/23/16 at 15:30 Prednisone (Prednisone) 40 mg DAILY PO Last administered on 03/24/16 09:05; Start 03/23/16 at 16:45 Active Scripts Active Reported [no home meds] Vitals/I & O Vital Sign - Last 24 Hours 03/23/16 03/23/16 03/23/16 03/23/16 15:10 15:43 18:19 19:00 Temp 97.4 98.0 97.4 98.0 Pulse 88 81 Resp 17 18 B/P 114/46 103/42 Pulse Ox 96 96 95 94 O2 Delivery Nasal Cannula Room Air Room Air Nasal Cannula O2 Flow Rate 1.0 1.0 03/23/16 03/23/16 03/24/16 03/24/16 20:00 23:00 03:00 07:56 Temp 97.6 97.4 98.1 97.6 97.4 98.1 Pulse 78 88 91 Resp 18 18 18 B/P 112/63 121/64 117/89 Pulse Ox 94 94 95 O2 Delivery Room Air Nasal Cannula Nasal Cannula Nasal Cannula O2 Flow Rate 1.0 1.0 1.0 03/24/16 03/24/16 03/24/16 03/24/16 08:00 09:17 11:00 13:00 Temp 98.4 98.4 Pulse 94 Resp 20 B/P 100/63 Pulse Ox 95 95 O2 Delivery Nasal Cannula Nasal Cannula Nasal Cannula Room Air O2 Flow Rate 1.0 1.0 1.0 Intake and Output 03/23/16 03/23/16 03/24/16 15:00 23:00 07:00 Intake Total 900 ml 800 ml Balance 900 ml 800 ml JARAD KEITH MD Mar 24, 2016 15:00
[2016-03-24] MEDS: ENOXAPARIN 40 MG/0.4 ML DISP.SYRIN. SQ SCH (15:23)
[2016-03-24 19:48] VITALS: BP 124/68
[2016-03-24] MEDS: GUAIFENESIN 200 MG/10 ML LIQUID. PO PRN (22:27)
[2016-03-24 23:27] VITALS: BP 152/66
[2016-03-25 03:06] VITALS: BP 133/74
[2016-03-25 07:00] VITALS: BP 121/68
[2016-03-25] MEDS: IPRATRPIUM/ALBUTEROL 0.5/2.5MG 3 ML NEBU. NEB SCH ×2 (07:27→11:19)
[2016-03-25] MEDS: BENZONATATE 100 MG CAPSULE. PO SCH (08:10)
[2016-03-25] MEDS: OSELTAMIVIR 75 MG CAPSULE PO SCH (08:10)
[2016-03-25] MEDS: PREDNISONE 20 MG TABLET PO SCH (08:10)
[2016-03-25 10:55] VITALS: BP 90/51
[2016-03-25] MEDS ORDERED: GUAI100L12 PO (11:23)
[2016-03-25] MEDS ORDERED: ACET325T16 PO (11:23)
--- NOTE | 2016-03-25 11:28 | PDOC3 ---
Discharge Summary Visit Information Date of Admission: Mar 20, 2016 Date of Discharge: Mar 25, 2016 Admitting Diagnosis: resp failure Final Diagnosis 1. acute hypoxic resp failure 2. inFluenza A: tamiflu given pleurisy and cough 3. KEVEN: on CPAP at home 4. Tobacco use: cessation counseled 5. Obesity: BMI 33 Problems Medical Problems: (1) Influenza Status: Acute (2) Respiratory failure Status: Acute Brief Hospital Course Allergies Allergies Coded Allergies Type Severity Reaction Last Updated Verified aspirin Allergy Intermediate SWELLING AND RASH 03/20/16 Yes Vital Signs Vital Signs Date Time Temp Pulse Resp B/P Pulse Ox O2 Delivery O2 Flow Rate FiO2 03/25/16 11:20 Room Air 03/25/16 10:55 98.7 88 20 90/51 92 98.7 03/24/16 15:00 1.0 Lab Results Laboratory Tests Test 03/24/16 03:35 White Blood Count 5.8x10^3/uL (4.0-11.0) Red Blood Count 4.71x10^6/uL (3.50-5.40) Hemoglobin 14.0g/dL (12.0-15.5) Hematocrit 42.3% (36.0-47.0) Mean Corpuscular Volume 90fL (79-100) Mean Corpuscular Hemoglobin 30pg (25-35) Mean Corpuscular Hemoglobin Concent 33g/dL (31-37) Red Cell Distribution Width 13.1% (11.5-14.5) Platelet Count 175x10^3/uL (140-400) Sodium Level 140mmol/L (136-145) Potassium Level 4.2mmol/L (3.5-5.1) Chloride Level 102mmol/L (98-107) Carbon Dioxide Level 26mmol/L (21-32) Anion Gap 12 (6-14) Blood Urea Nitrogen 14mg/dL (7-20) Creatinine 0.8mg/dL (0.6-1.0) Estimated GFR (Cockcroft-Gault) 74.2 Glucose Level 165mg/dL (70-99) Calcium Level 9.2mg/dL (8.5-10.1) Brief Hospital Course Ms. Fatima is a 55 old with a history of obstructive sleep apnea admitted with acute body aches, malaise, vertigo, cough, CXR clear, serology screen for influenza which was positive tamiflu started, steroids, supportive care, better at DC< pain better, off 02 Discharge Information Condition at Discharge: Improved Follow Up: Weeks Disposition/Orders: D/C to Home Miscellaneous Medications ([no home meds]) (Reported) Patient Instructions Patient Instructions time > 30 min JARAD KEITH MD Mar 25, 2016 11:28
--- NOTE | 2016-03-25 11:52 | PDOC ---
PULMONARY PROGRESS NOTES Subjective feels better Vitals Vital Signs Date Time Temp Pulse Resp B/P Pulse Ox O2 Delivery O2 Flow Rate FiO2 03/25/16 11:20 Room Air 03/25/16 10:55 98.7 88 20 90/51 92 98.7 03/24/16 15:00 1.0 ROS: No Nausea, No Chest Pain, No Abdominal Pain, No Increase Cough General: Alert, Oriented X4 Lungs: Wheezing (resolved) Cardiovascular: S1, S2 Abdomen: Soft Neuro Exam: Alert Extremities: No Edema Skin: Warm Labs Laboratory Tests Test 03/24/16 03:35 White Blood Count 5.8x10^3/uL (4.0-11.0) Red Blood Count 4.71x10^6/uL (3.50-5.40) Hemoglobin 14.0g/dL (12.0-15.5) Hematocrit 42.3% (36.0-47.0) Mean Corpuscular Volume 90fL (79-100) Mean Corpuscular Hemoglobin 30pg (25-35) Mean Corpuscular Hemoglobin Concent 33g/dL (31-37) Red Cell Distribution Width 13.1% (11.5-14.5) Platelet Count 175x10^3/uL (140-400) Sodium Level 140mmol/L (136-145) Potassium Level 4.2mmol/L (3.5-5.1) Chloride Level 102mmol/L (98-107) Carbon Dioxide Level 26mmol/L (21-32) Anion Gap 12 (6-14) Blood Urea Nitrogen 14mg/dL (7-20) Creatinine 0.8mg/dL (0.6-1.0) Estimated GFR (Cockcroft-Gault) 74.2 Glucose Level 165mg/dL (70-99) Calcium Level 9.2mg/dL (8.5-10.1) Medications Active Scripts Medications Dose Route/Sig Days Date Category [no home meds] 03/21/16 Reported Impression . 1. Progressive dyspnea secondary to acute exacerbation of chronic obstructive pulmonary disease secondary to influenza A. 2. Influenza A. 3. Fever secondary to above.resolved 4. Obstructive sleep apnea. 5. Morbid obesity./ KEVEN/ home CPAP Plan . Nebs Oxygen steroid taper tamiflu d/c today TYRONE AGUILAR MD Mar 25, 2016 11:52
[2016-04-03] MEDS ORDERED: PRED-220 PO (13:54)
[2016-04-03] MEDS ORDERED: MONT10TA9 PO (13:54)
[2016-04-03] MEDS ORDERED: GUAI5LIQ PO (13:57)
[2016-04-03] MEDS ORDERED: FAMO20TA5 PO (13:57)
== END 2016-03-25 12:11 | disposition home or self-care (01) | DRG 871 ==
LOC: EEVIPCON 19:00 → ER 19:00 → 6 SOUTH 23:04
PROVIDERS: ADMIT Internal Medicine Hematology & Oncology; ATTEND Internal Medicine Hematology & Oncology
PROC: 5A09357 Assistance with Respiratory Ventilation, Less than 24 Consecutive Hours, Continuous Positive Airway Pressure (ICD-10-PCS; principal; 2016-03-21)
DX: A41.9 Sepsis, unspecified organism (principal); J96.01 Acute respiratory failure with hypoxia; J44.1 Chronic obstructive pulmonary disease with (acute) exacerbation; J10.1 Influenza due to other identified influenza virus with other respiratory manifestations; E66.01 Morbid (severe) obesity due to excess calories; F17.200 Nicotine dependence, unspecified, uncomplicated; G47.33 Obstructive sleep apnea (adult) (pediatric); Z68.33 Body mass index [BMI] 33.0-33.9, adult; Z71.6 Tobacco abuse counseling; Z88.6 Allergy status to analgesic agent
CPT/HCPCS: 36415; 71010; 80048; 80053; 81001; 83605; 83880; 84484; 85027; 87804; 93005; 94250; 94640; 94760; 96360; 96361; J2920; J7030; J7512; J7620; 99285-25

== ENCOUNTER 2016-03-26 19:59 | Inpatient (IN) | payer OTHER ==
[~2016-03-26] VITALS: Ht 167.6 cm; Wt 102.1 kg
[~2016-03-26 19:59] MED LIST: ACET325T16 PO; GUAI100L12 PO; no home meds
--- NOTE | 2016-03-26 21:17 | PHYS DOC ---
Past Medical History Past Medical History: Other Additional Past Medical Histor: VERTIGO, influenza a, KEVEN Past Surgical History: Other Additional Past Surgical Histo: R. BREAST LUMPECTOMY Alcohol Use: None Drug Use: None Adult General Chief Complaint Chief Complaint: SHORTNESS OF BREATH HPI HPI Patient is a 55 year old female who presents with shortness of breath. Patient had just been admitted to hospital after diagnosis of influenza. She went home yesterday after feeling better. She woke up today feeling poorly, with shortness of breath as progress throughout the day. She also reports cough. No chest discomfort. Of note, pulse ox 89-90% on room air on arrival. Patient does not wear O2 at baseline. Review of Systems Review of Systems Constitutional: Chills Eyes: Denies change in visual acuity or eye pain HENT: Denies nasal congestion or sore throat Respiratory: Cough, shortness of breath Cardiovascular: Denies chest pain GI: Denies abdominal pain, nausea, vomiting, bloody stools or diarrhea : Denies dysuria or hematuria Musculoskeletal: Body aches Integument: Denies rash or skin lesions Neurologic: Denies headache, focal weakness or sensory changes Current Medications Current Medications Current Medications Medications (Trade) Dose Ordered Sig/Eddie Start Time Stop Time Status Last Admin Dose Admin Albuterol/ Ipratropium (Duoneb) 3 ml 1X ONCE 03/26/16 21:30 03/26/16 21:31 DC 03/26/16 21:28 3 ML Prednisone (Prednisone) 60 mg 1X ONCE 03/26/16 21:30 03/26/16 21:31 DC 03/26/16 21:49 60 MG Allergies Allergies Allergies Coded Allergies Type Severity Reaction Last Updated Verified aspirin Allergy Intermediate SWELLING AND RASH 03/20/16 Yes Physical Exam Physical Exam Constitutional: Well developed, well nourished, no acute distress, non-toxic appearance HENT: Normocephalic, atraumatic, bilateral external ears normal Eyes: EOMI, conjunctiva normal, no discharge Neck: Normal range of motion, no stridor Cardiovascular: Tachycardic, regular rhythm, no murmur Lungs & Thorax: Diffuse expiratory wheezing, occasional dry cough Abdomen: Bowel sounds normal, soft, non-distended, no TTP Skin: Warm, dry, no erythema, no rash Extremities: No obvious deformity, no edema Neurologic: Alert and oriented X 3, no gross deficits noted Current Patient Data Vital Signs Vital Signs Date Time Temp Pulse Resp B/P Pulse Ox O2 Delivery O2 Flow Rate FiO2 03/26/16 21:30 100 151/100 97 Room Air 03/26/16 21:26 2.0 03/26/16 20:01 98.4 28 98.4 Lab Values Laboratory Tests Test 03/26/16 21:41 White Blood Count 10.9x10^3/uL (4.0-11.0) # Red Blood Count 4.78x10^6/uL (3.50-5.40) Hemoglobin 14.2g/dL (12.0-15.5) Hematocrit 42.1% (36.0-47.0) Mean Corpuscular Volume 88fL (79-100) Mean Corpuscular Hemoglobin 30pg (25-35) Mean Corpuscular Hemoglobin Concent 34g/dL (31-37) Red Cell Distribution Width 13.1% (11.5-14.5) Platelet Count 199x10^3/uL (140-400) Neutrophils (%) (Auto) 65% (31-73) Lymphocytes (%) (Auto) 30% (24-48) Monocytes (%) (Auto) 5% (0-9) Eosinophils (%) (Auto) 0% (0-3) Basophils (%) (Auto) 1% (0-3) Neutrophils # (Auto) 7.0x10^3uL (1.8-7.7) Lymphocytes # (Auto) 3.2x10^3/uL (1.0-4.8) Monocytes # (Auto) 0.5x10^3/uL (0.0-1.1) Eosinophils # (Auto) 0.0x10^3/uL (0.0-0.7) Basophils # (Auto) 0.1x10^3/uL (0.0-0.2) Sodium Level 140mmol/L (136-145) Potassium Level 3.6mmol/L (3.5-5.1) Chloride Level 103mmol/L (98-107) Carbon Dioxide Level 28mmol/L (21-32) Anion Gap 9 (6-14) Blood Urea Nitrogen 12mg/dL (7-20) Creatinine 0.8mg/dL (0.6-1.0) Estimated GFR (Cockcroft-Gault) 74.2 Glucose Level 98mg/dL (70-99) Calcium Level 8.6mg/dL (8.5-10.1) Troponin I Quantitative < 0.017ng/mL (0.000-0.055) Laboratory Tests 03/26/16 21:41 Laboratory Tests 03/26/16 21:41 EKG EKG EKG (my read): sinus rhythm, rate 90, normal axis, intervals wnl, no acute ischemic changes Radiology/Procedures Radiology/Procedures CXR (my read): No significant change from prior Course & Med Decision Making Course & Med Decision Making Pertinent Labs and Imaging studies reviewed. (See chart for details) Patient is 55-year-old female who presents with cough, shortness of breath. Apparently related to recent diagnosis of influenza. Will obtain EKG, chest x- ray, labs. Patient also noted be wheezing on exam. Breathing treatment, steroids ordered. Labs unremarkable. Given hypoxia, I believe patient will need admission. Discussed with Dr. Cota, will admit under his care for further evaluation treatment. Dragon Disclaimer Dragon Disclaimer This electronic medical record was generated, in whole or in part, using a voice recognition dictation system. Departure Departure Impression: Primary Impression: SOB (shortness of breath) Additional Impression: Hypoxia Disposition: ADMITTED INPATIENT Admitting Physician: Hien Cota Condition: STABLE Referrals: PEDRO MONTERO DO (PCP) Problem Qualifiers KEVYN ARMENTA MD Mar 26, 2016 21:17
[2016-03-26] MEDS ORDERED: PREDNISONE 10 MG TABLET PO ONE (21:30)
[2016-03-26] MEDS ORDERED: IPRATRPIUM/ALBUTEROL 0.5/2.5MG 3 ML NEBU. NEB ONE (21:30)
[2016-03-26 21:50] LABS: BASO # 0.1 x10^3/uL (0.0-0.2); BASO % 1 % (0-3); EOS % 0 % (0-3); HEMATOCRIT 42.1 % (36.0-47.0); HEMOGLOBIN 14.2 g/dL (12.0-15.5); LYMPH # 3.2 x10^3/uL (1.0-4.8); LYMPH % 30 % (24-48); MEAN CORPUSCULAR HEMOGLOBIN 30 pg (25-35); MEAN CORPUSCULAR HGB CONC 34 g/dL (31-37); MEAN CORPUSCULAR VOLUME 88 fL (79-100); MONO % 5 % (0-9); NEUT % 65 % (31-73); PLATELET COUNT 199 x10^3/uL (140-400); RED BLOOD COUNT 4.78 x10^6/uL (3.50-5.40); RED CELL DISTRIBUTION WIDTH 13.1 % (11.5-14.5); WHITE BLOOD COUNT 10.9 x10^3/uL (4.0-11.0)
[2016-03-26 21:59] LABS: CALCIUM 8.6 mg/dL (8.5-10.1); CREATININE 0.8 mg/dL (0.6-1.0); GFR 74.2; POTASSIUM 3.6 mmol/L (3.5-5.1)
[2016-03-26] MEDS ORDERED: MORPHINE SULFATE 2 MG/ML DISP.SYRIN. IV PRN (22:30)
[2016-03-26] MEDS ORDERED: ACETAMINOPHEN 325 MG TABLET. PO PRN (22:30)
[2016-03-26] MEDS ORDERED: ONDANSETRON PF 4 MG/2 ML VIAL. IV PRN (22:30)
--- NOTE | 2016-03-26 23:03 | ACF ---
Admission Forms Criteria CARDIOLOGY GRG Clinical Indications for Admission to Inpatient Care ( Place 'X' for any and all applicable criteria): Hospital admission is needed for appropriate care of the patient because of ANY ONE of the following (1): [ ] I. Hemodynamic instability as indicated by ALL of the following (1)(2)(3) (4)(5) [ ]a) Vital signs or other findings not as expected for chronic patient condition or baseline [ ]b) Instability indicated by ANY ONE of the following: [ ]i) Hypotension [ ]ii) Symptomatic Tachycardia unresponsive to treatment ( e.g., analgesia, fluids, sedation as indicated) [ ]iii) Inadequate perfusion indicated by ANY ONE of the following: [ ] 1) Lactic acidosis (> 2 mmol/L) [ ] 2) New abnormal capillary refill (> 3 seconds) [ ] 3) Reduced urine output [ ] 4) New altered mental status [ ]iv) Orthostatic vital sign changes unresponsive to treatment (e.g., fluids) [ ]v) IV inotropic or vasopressor medication required to maintain adequate blood pressure or perfusion [ ] II. Severe heart failure as indicated by ANY ONE of the following(17)(18) [ ]a) Respiratory distress [ ]b) Hypotension [ ]c) Anasarca (refractory to outpatient therapy) [ ]d) Cardiac arrhythmias of immediate concern [ ]e) Myocardial ischemia [ ] III. Cardiac arrhythmias or findings of immediate concern indicated by ANY ONE of the following (19)(20): [ ] a) Heart rhythms that are inherently dangerous or unstable indicated by ANY ONE of the following (21)(22)(23): [ ] i) Resuscitated ventricular fibrillation or cardiac arrest [ ] ii) Ventricular escape rhythm [ ] iii) Sustained ventricular tachycardia (30 seconds or more of ventricular rhythm at greater than 100 beats per minute) [ ] iv) Nonsustained ventricular tachycardia and ANY ONE of the following: [ ] 1) Suspected cardiac ischemia as cause or consequence of ventricular tachycardia [ ] 2) In setting of acute myocarditis [ ] b) Unstable cardiac conduction defects indicated by ANY ONE of the following(23)(24)(25) [ ] i) Type II second-degree atrioventricular block [ ]ii) Third-degree atrioventricular block [ ]iii) New-onset left bundle branch block with suspected myocardial ischemia [ ]c) Any heart rhythm and ANY ONE of the following (21)(22)(26)(27) (28) [ ] i) Continuous long-term ECG monitoring needed (e.g., initiation of drug requiring monitoring for more than 24 hours) [ ] ii) Patient has automatic implanted cardioverter defibrillator that is repeatedly firing, malfunctioning, or in need of immediate adjustment of settings beyond the scope of ambulatory or observation care [ ]d) Heart rhythms of concern due to ANY ONE of the following: [ ] i) Hypotension [ ] ii) Respiratory distress [ ] iii) Association with other significant symptoms (e.g., bradycardia with syncope or ongoing dizziness, supraventricular tachycardia with chest pain (14)(15)(17) [ ] IV. Monitoring for cardiac contusion beyond the scope of observation care needed [A](30)(31)(32) [ ] V. Surgical or device complication (e.g., valve replacement complication , pacemaker dysfunction) (35)(41)(44)(45)(46) [ ] . Inpatient palliative care needed. [B](49) Also use Inpatient Palliative Care Criteria [ ] VII. Nonbacterial thrombotic (marantic) endocarditis (36)(43)(47)(48) [X] VIII. Cardiology condition, symptom, or finding for which emergency and observation care has failed or are not considered appropriate. [ ] IX. Acute valvular disease requiring inpatient as indicated by ANY ONE of the following (41) [ ]a) Acute valvular regurgitation (42) [ ]b) Noninfectious valvulitis (43) [ ]c) Obstructive valve thrombosis [ ]d) Paravalvular leak [ ]e) Other significant valvular disorder remaining after emergency or observation level of care (as appropriate) [ ]X. Pericardial disease requiring inpatient treatment as indicated by ANY ONE of the following (33)(34)(35)(36)(37) [ ]a) Suspected tamponade (38)(39)(40) [ ]b) Hemopericardium [ ]c) Other significant pericardial disorder remaining after emergency or observation level of care (as appropriate) [ ] XI. Cardiac ischemia beyond scope of emergency and observation care. [ ] XII. Hypertension requiring inpatient treatment as indicated by ANY ONE of the following (6)(7)(8) [ ]a) SBP greater than 220 mm Hg or DBP greater than 120 mmHg despite treatment [ ]b) SBP greater than 140 mm Hg or DBP greater than 100 mm Hg with evidence of acute end organ damage as indicated by ANY ONE of the following [ ] i) Encephalopathy [ ] ii) Acute renal failure as indicated by new onset of ANY ONE of the following (9)(10)(11)(12)(13) [ ]1) 3-fold rise in serum creatinine from baseline [ ]2) Serum creatinine greater than 4 mg/dL ( 354 micromoles/L) with acute rise greater than 0.5 mg/dL (44.2 micromoles/L) [ ]3) Reduction of more than 75% in estimated glomerular filtration rate from baseline [ ]4) Estimated glomerular filtration rate less than 35 mL/min/1.73m2 (0.59 mL/sec/1.73m2) in child up to 18 years of age [ ]5) Cessation of urine output indicated by ALL of the following [ ]A. Adequate volume status [ ]B. Inadequate urine output as indicated by ANY ONE of the following [ ]a. Urine output less than 0.3 mL/kg/hr for 24 hours [ ]b. Anuria (urine output less than 0.1 mL/kg/hr) for 12 hours [ ] iii) Aortic dissection [ ] iv) Myocardial Ischemia [ ] v) Left ventricular heart failure [ ]vi) Retinal Hemorrhage [ ]vii) Other significant finding [ ]c) Hypertension in child requiring inpatient treatment as indicated by ALL of the following(14)(15)(16) [ ] i) Outpatient treatment not effective, not available, or not appropriate [ ]ii) SBP or DBP greater than 95th percentile for age [ ]iii) Evidence of acute end organ damage as indicated by ANY ONE of the following [ ]1) Altered mental status [ ]2) Acute renal failure as indicated by new onset of ANY ONE of the following(9)(10)(11)(12)(13) [ ]A. 3-fold rise in serum creatinine from baseline [ ]B. Serum creatinine greater than 4 mg/dL (354 micromoles/L) with acute rise greater than 0.5 mg/dL (44.2 micromoles/L) [ ]C. Reduction of more than 75% in estimated glomerular filtration rate from baseline [ ]D. Estimated glomerular filtration rate less than 35 mL/min/1.73m2 (0.59 mL/sec/1.73m2) in child up to 18 years of age [ ]E. Cessation of urine output indicated by ALL of the following [ ]a. Adequate volume status [ ]b. Inadequate urine output as indicated by ANY ONE of the following [ ]i) Urine output less than 0.3 mL/kg/hr for 24 hours [ ]ii) Anuria ( urine output less than 0.1 mL/kg/hr) for 12 hours [ ]3) Severe headache [ ]4) Visual disturbance [ ]5) Retinal hemorrhage [ ]6) Other significant finding [ ]XIII. Complications of transplanted heart indicated by ANY ONE of the following(61): [ ]a) Acute graft rejection requiring inpatient management (eg, intravenous immunosuppression)(62)(63) [ ]b) Acute graft heart failure indicated by ANY ONE of the following(64): [ ]i) Hemodynamic instability [ ]ii) Cardiac arrhythmias of immediate concern [ ]iii) Pulmonary edema that is very severe (eg, mechanical ventilation needed, imminent or likely, need for 100% oxygen to keep oxygen saturation above 90%) [ ]iv) Pulmonary edema that is persistent as indicated by ALL of the following: [ ]1) New need for oxygen therapy to keep oxygen saturation above 90% (or increased FiO2 need from baseline) [ ]2) Has not improved sufficiently with emergency department or observation care IV diuretics or other heart failure treatments[E] [ ]v) Altered mental status that is severe or persistent [ ]vi) Increased creatinine (new on laboratory test) with reduction of more than 50% in estimated glomerular filtration rate from baseline [ ]vii) Progressively (ongoing) rising creatinine (known from past laboratory test) with reduction of more than 25% in estimated glomerular filtration rate from baseline [ ]viii) Acute renal failure [ ]ix) Acute peripheral ischemia (eg, examination shows pulseless, cool, mottled, or cyanotic extremity) [ ]x) Pulmonary artery catheter monitoring needed [ ]xi) Other sign or symptom of heart failure requiring inpatient treatment (ie, too severe or not responsive to outpatient and observation care treatment) [ ]c) Infection requiring inpatient management (eg, Hemodynamic instability, need for intravenous antimicrobial treatment)(66)(67)(68)(69)(70) [ ]d) Cardiac allograft vasculopathy requiring inpatient management ( eg evidence of cardiac ischemia)(71) [ ]e) Other complication of transplanted heart (eg, stroke, severe pulmonary hypertension, severe valvular dysfunction) requiring inpatient management(72) The original [facility] content created by [facility] has been revised. The portions of the content which have been revised are identified through the use of italic text or in bold, and [facility] has neither reviewed nor approved the modified material. All other unmodified content is copyright [facility]. Please see references footnoted in the original [facility] edition 2016 Admission Criteria Met?: Yes JERED ONOFRE Mar 26, 2016 23:03
--- NOTE | 2016-03-26 23:37 | PDOC1 ---
History and Physical Date of Admission Date of Admission DATE: 03/26/16 TIME: 23:36 Identification/Chief Complaint Chief Complaint cough Source Source: Chart review, Patient History of Present Illness History of Present Illness I discharged yesterday after 5 days admit for influenza. She had improved and felt better, but today, worsening shortness of breath. Cough, wheeze, and dyspnea. Her voice has changed and is very weak. She was hypoxic on presenting to ER, was DC home on no 02 need. Past Medical History Cardiovascular: No pertinent hx Pulmonary: No pertinent hx GI: No pertinent hx Hepatobiliary: No pertinent hx Past Surgical History Past Surgical History: Breast Biopsy Family History Family History: No Significant, Other Social History ALCOHOL: social Drugs: None Current Problem List Problem List Problems Medical Problems: (1) Hypoxia Status: Acute (2) SOB (shortness of breath) Status: Acute Problems: Current Medications Current Medications Current Medications Albuterol/ Ipratropium (Duoneb) 3 ml 1X ONCE NEB Last administered on t 21:28; Start 03/26/16 at 21:30; Stop 03/26/16 at 21:31; Status DC Prednisone (Prednisone) 60 mg 1X ONCE PO Last administered on 03/26/16t 21:49 ; Start 03/26/16 at 21:30; Stop 03/26/16 at 21:31; Status DC Ondansetron HCl (Zofran) 4 mg PRN Q8HRS PRN IV NAUSEA/VOMITING; Start 03/26/16 at 22:30; Stop 03/27/16 at 22:29 Morphine Sulfate 2 mg PRN Q2HR PRN IV PAIN; Start 03/26/16 at 22:30; Stop 03/27 at 22:29 Acetaminophen (Tylenol) 650 mg PRN Q4HRS PRN PO FEVER; Start 03/26/16 at 22:30 ; Stop 03/27/16 at 22:29 Albuterol/ Ipratropium (Duoneb) 3 ml RTQID NEB ; Start 03/27/16 at 08:00; Stop 03/28/16 at 07:59 Active Scripts Active Mapap (Acetaminophen) 325 Mg Tablet 650 Mg PO PRN Q6HRS PRN Guaifenesin 100 Mg/5 Ml Liquid 200 Mg PO PRN Q4HRS PRN Reported [no home meds] Allergies Allergies: Coded Allergies: aspirin (Verified Allergy, Intermediate, SWELLING AND RASH, 03/20/16) ROS General: No: Appetite, Chills, Fatigue, Malaise, Night Sweats, Other PSYCHOLOGICAL ROS: No: Anxiety, Behavioral Disorder, Concentration difficultie , Decreased libido, Depression, Disorientation, Hallucinations, Hostility, Irritablity, Memory difficulties, Mood Swings, Obsessive thoughts, Other, Physical abuse, Sexual abuse, Sleep disturbances, Suicidal ideation Eyes: No Blurry vision, No Decreased vision, No Double vision, No Dry eyes, No Excessive tearing, No Eye Pain, No Itchy Eyes, No Loss of vision, No Other, No Photophobia, No Scotomata, No Uses contacts, No Uses glasses HEENT: No: Epistaxis, Heacaches, Hearing change, Nasal congestion, Nasal discharge, Oral lesions, Other, Sinus pain, Sneezing, Snoring, Sore Throat, Tinnitus, Vertigo, Visual Changes, Vocal changes ALLERGY AND IMMUNOLOGY: No: Hives, Insect Bite Sensitivity, Itchy/Watery Eyes, Nasal Congestion, Other, Post Nasal Drip, Seasonal Allergies Hematological and Lymphatic: No: Bleeding Problems, Blood Clots, Blood Transfusions, Brusing, Night Sweats, Other, Pallor, Swollen Lymph Nodes Respiratory: YES: Cough, SOB with excertion, Shortness of breath, Tachypnea, Wheezing, No: Hemoptysis, Orthopnea, Other, Pleuritic Pain, Sputum Changes, Stridor Cardiovascular: No Chest Pain, No Edema, No Lt Headedness, No Orthopnea, No Other, No Palpitations, No Paroxysmal Noc. Dyspnea Genitourinary: No , No , No , No , No , No , No , No Discharge, No Dysuria, No Flank Pain, No Frequency, No Hematuria, No Incontinence, No Other, No Pain, No Retention, No Urgency Musculoskeletal: No Gait Disturbance, No Joint Pain, No Joint Stiffness, No Joint Swelling, No Muscle Pain, No Muscular Weakness, No Other, No Pain In:, No Swelling In: Neurological: No Behavorial Changes, No Bowel/Bladder ControlChng, No Confusion , No Dizziness, No Gait Disturbance, No Headaches, No Impaired Coord/balance, No Memory Loss, No Numbness/Tingling, No Other, No Seizures, No Speech Problems , No Tremors, No Visual Changes, No Weakness Skin: No Acne, No Dry Skin, No Eczema, No Hair Changes, No Lumps, No Mole Changes, No Mottling, No Nail Changes, No Other, No Pruritus, No Rash, No Skin Lesion Changes Physical Exam General: Alert, Oriented X3, Cooperative, mild distress HEENT: PERRLA Lungs: Other (wheeze) Abdomen: Normal bowel sounds, Soft Rectal Exam: not examined Extremities: No clubbing, No cyanosis, No edema Skin: No rashes Neuro: Normal tone, Sensation intact, Reflexes 2+ Psych/Mental Status: Mood NL Vitals Vitals Vital Signs Date Time Temp Pulse Resp B/P Pulse Ox O2 Delivery O2 Flow Rate FiO2 03/26/16 23:00 94 117/68 94 Room Air 03/26/16 21:26 2.0 03/26/16 20:01 98.4 28 98.4 Labs Labs Laboratory Tests Test 03/26/16 21:41 White Blood Count 10.9x10^3/uL (4.0-11.0) Red Blood Count 4.78x10^6/uL (3.50-5.40) Hemoglobin 14.2g/dL (12.0-15.5) Hematocrit 42.1% (36.0-47.0) Mean Corpuscular Volume 88fL (79-100) Mean Corpuscular Hemoglobin 30pg (25-35) Mean Corpuscular Hemoglobin Concent 34g/dL (31-37) Red Cell Distribution Width 13.1% (11.5-14.5) Platelet Count 199x10^3/uL (140-400) Neutrophils (%) (Auto) 65% (31-73) Lymphocytes (%) (Auto) 30% (24-48) Monocytes (%) (Auto) 5% (0-9) Eosinophils (%) (Auto) 0% (0-3) Basophils (%) (Auto) 1% (0-3) Neutrophils # (Auto) 7.0x10^3uL (1.8-7.7) Lymphocytes # (Auto) 3.2x10^3/uL (1.0-4.8) Monocytes # (Auto) 0.5x10^3/uL (0.0-1.1) Eosinophils # (Auto) 0.0x10^3/uL (0.0-0.7) Basophils # (Auto) 0.1x10^3/uL (0.0-0.2) Sodium Level 140mmol/L (136-145) Potassium Level 3.6mmol/L (3.5-5.1) Chloride Level 103mmol/L (98-107) Carbon Dioxide Level 28mmol/L (21-32) Anion Gap 9 (6-14) Blood Urea Nitrogen 12mg/dL (7-20) Creatinine 0.8mg/dL (0.6-1.0) Estimated GFR (Cockcroft-Gault) 74.2 Glucose Level 98mg/dL (70-99) Calcium Level 8.6mg/dL (8.5-10.1) Troponin I Quantitative < 0.017ng/mL (0.000-0.055) Laboratory Tests Test 03/26/16 21:41 White Blood Count 10.9x10^3/uL (4.0-11.0) Red Blood Count 4.78x10^6/uL (3.50-5.40) Hemoglobin 14.2g/dL (12.0-15.5) Hematocrit 42.1% (36.0-47.0) Mean Corpuscular Volume 88fL (79-100) Mean Corpuscular Hemoglobin 30pg (25-35) Mean Corpuscular Hemoglobin Concent 34g/dL (31-37) Red Cell Distribution Width 13.1% (11.5-14.5) Platelet Count 199x10^3/uL (140-400) Neutrophils (%) (Auto) 65% (31-73) Lymphocytes (%) (Auto) 30% (24-48) Monocytes (%) (Auto) 5% (0-9) Eosinophils (%) (Auto) 0% (0-3) Basophils (%) (Auto) 1% (0-3) Neutrophils # (Auto) 7.0x10^3uL (1.8-7.7) Lymphocytes # (Auto) 3.2x10^3/uL (1.0-4.8) Monocytes # (Auto) 0.5x10^3/uL (0.0-1.1) Eosinophils # (Auto) 0.0x10^3/uL (0.0-0.7) Basophils # (Auto) 0.1x10^3/uL (0.0-0.2) Sodium Level 140mmol/L (136-145) Potassium Level 3.6mmol/L (3.5-5.1) Chloride Level 103mmol/L (98-107) Carbon Dioxide Level 28mmol/L (21-32) Anion Gap 9 (6-14) Blood Urea Nitrogen 12mg/dL (7-20) Creatinine 0.8mg/dL (0.6-1.0) Estimated GFR (Cockcroft-Gault) 74.2 Glucose Level 98mg/dL (70-99) Calcium Level 8.6mg/dL (8.5-10.1) Troponin I Quantitative < 0.017ng/mL (0.000-0.055) VTE Prophylaxis Ordered VTE Prophylaxis Devices: Yes VTE Pharmacological Prophylaxi: No Assessment/Plan Assessment/Plan acute hypoxia influenza A this week obesity, BMI 33 possible COPD start nebs, steroids, inhl steroid, consult PULM JARAD KEITH MD Mar 26, 2016 23:37
[2016-03-27] MEDS ORDERED: OXYCODONE IR 5 MG TABLET. PO PRN (01:00)
[2016-03-27] MEDS ORDERED: IPRATRPIUM/ALBUTEROL 0.5/2.5MG 3 ML NEBU. NEB ONE (01:15)
[2016-03-27] MEDS: GUAIFENESIN/CODEINE 100mg/10mg 5 ML LIQUID. PO PRN ×4 (01:32→22:43)
[2016-03-27 03:15] VITALS: BP 118/65
[2016-03-27 05:02] LABS: BASO % 0 % (0-3); EOS % 0 % (0-3); HEMATOCRIT 41.3 % (36.0-47.0); HEMOGLOBIN 13.9 g/dL (12.0-15.5); LYMPH # 1.2 x10^3/uL (1.0-4.8); LYMPH % 12 % (24-48); MEAN CORPUSCULAR HEMOGLOBIN 30 pg (25-35); MEAN CORPUSCULAR HGB CONC 34 g/dL (31-37); MEAN CORPUSCULAR VOLUME 89 fL (79-100); MONO % 2 % (0-9); NEUT % 86 % (31-73); PLATELET COUNT 215 x10^3/uL (140-400); RED BLOOD COUNT 4.67 x10^6/uL (3.50-5.40); RED CELL DISTRIBUTION WIDTH 13.1 % (11.5-14.5); WHITE BLOOD COUNT 9.9 x10^3/uL (4.0-11.0)
[2016-03-27 05:26] LABS: CREATININE 0.9 mg/dL (0.6-1.0); GFR 64.8; POTASSIUM 4.4 mmol/L (3.5-5.1)
--- NOTE | 2016-03-27 06:26 | EKG ---
[facility] [address] [place] [id number] Test Date: 2016-03-26 Test Time: 21:33:53 Pat Name: MELY GRAY Department: Room: 208 1 Gender: F [employer] Building Machine Operator: : [id number] Requested By: KEVYN ARMENTA Order Number: [id number] Reading MD: Evangelist Casas Measurements Intervals Shafer Rate: 90 P: 90 AL: 118 QRS: 57 QRSD: 72 T: 59 QT: 356 QTc: 440 Interpretive Statements SINUS RHYTHM Electronically Signed On 04-01-2016 10:06:12 RN SUPPLEMENTAL by Evangelist Casas
--- NOTE | 2016-03-27 07:13 | RAD ---
EXAM: Chest, 2 views. HISTORY: Shortness of breath. COMPARISON: 03/20/2016. FINDINGS: Frontal and lateral views of the chest are obtained and compared to a study dated 03/20/2016. There is new patchy opacity within the lingula and left lower lobe. There is no effusion or pneumothorax. The heart is normal in size. IMPRESSION: Suspected lingular and left lower lobe atelectasis or infiltrate, new compared to the prior study.
[2016-03-27 07:14] LABS: PLT ESTIMATE ADEQUATE (ADEQUATE)
[2016-03-27] MEDS: IPRATRPIUM/ALBUTEROL 0.5/2.5MG 3 ML NEBU. NEB SCH ×4 (07:32→20:54)
[2016-03-27] MEDS: BUDESONIDE 0.5 MG/2 ML NEBU NEB SCH ×2 (07:33→20:54)
[2016-03-27 07:58] VITALS: BP 118/71
[2016-03-27] MEDS ORDERED: POTASSIUM CHLORIDE 20 MEQ TABLET.ER. PO ONE (08:00)
[2016-03-27] MEDS ORDERED: IPRATRPIUM/ALBUTEROL 0.5/2.5MG 3 ML NEBU. NEB SCH (08:00)
[2016-03-27] MEDS: PREDNISONE 20 MG TABLET PO SCH (10:00)
[2016-03-27 11:53] VITALS: BP 131/68
--- NOTE | 2016-03-27 11:53 | PDOC ---
PROGRESS NOTES Chief Complaint Chief Complaint cc: sob A/P Acute respiratory distress, cough Recent influenza, treated Plan Periodic nebulizations low dose solumedrol labs reviewed, no abx needed supportive care pulmonology consulted. History of Present Illness History of Present Illness cough no chest pain no fever breathing better. Vitals Vitals Vital Signs Date Time Temp Pulse Resp B/P Pulse Ox O2 Delivery O2 Flow Rate FiO2 03/27/16 08:30 Room Air 03/27/16 07:58 97.5 86 23 118/71 94 2.0 97.5 Physical Exam General: Alert, Oriented X3, Cooperative, mild distress Heart: Normal S1, Normal S2 Lungs: Clear Abdomen: Normal bowel sounds, Soft Extremities: No clubbing, No cyanosis, No edema Skin: No rashes Labs LABS Laboratory Tests Test 03/26/16 21:41 03/27/16 04:45 White Blood Count 10.9x10^3/uL (4.0-11.0) 9.9x10^3/uL (4.0-11.0) Red Blood Count 4.78x10^6/uL (3.50-5.40) 4.67x10^6/uL (3.50-5.40) Hemoglobin 14.2g/dL (12.0-15.5) 13.9g/dL (12.0-15.5) Hematocrit 42.1% (36.0-47.0) 41.3% (36.0-47.0) Mean Corpuscular Volume 88fL (79-100) 89fL (79-100) Mean Corpuscular Hemoglobin 30pg (25-35) 30pg (25-35) Mean Corpuscular Hemoglobin Concent 34g/dL (31-37) 34g/dL (31-37) Red Cell Distribution Width 13.1% (11.5-14.5) 13.1% (11.5-14.5) Platelet Count 199x10^3/uL (140-400) 215x10^3/uL (140-400) Neutrophils (%) (Auto) 65% (31-73) 86% (31-73) Lymphocytes (%) (Auto) 30% (24-48) 12% (24-48) Monocytes (%) (Auto) 5% (0-9) 2% (0-9) Eosinophils (%) (Auto) 0% (0-3) 0% (0-3) Basophils (%) (Auto) 1% (0-3) 0% (0-3) Neutrophils # (Auto) 7.0x10^3uL (1.8-7.7) 8.5x10^3uL (1.8-7.7) Lymphocytes # (Auto) 3.2x10^3/uL (1.0-4.8) 1.2x10^3/uL (1.0-4.8) Monocytes # (Auto) 0.5x10^3/uL (0.0-1.1) 0.2x10^3/uL (0.0-1.1) Eosinophils # (Auto) 0.0x10^3/uL (0.0-0.7) 0.0x10^3/uL (0.0-0.7) Basophils # (Auto) 0.1x10^3/uL (0.0-0.2) 0.0x10^3/uL (0.0-0.2) Sodium Level 140mmol/L (136-145) 140mmol/L (136-145) Potassium Level 3.6mmol/L (3.5-5.1) 4.4mmol/L (3.5-5.1) Chloride Level 103mmol/L (98-107) 102mmol/L (98-107) Carbon Dioxide Level 28mmol/L (21-32) 28mmol/L (21-32) Anion Gap 9 (6-14) 10 (6-14) Blood Urea Nitrogen 12mg/dL (7-20) 13mg/dL (7-20) Creatinine 0.8mg/dL (0.6-1.0) 0.9mg/dL (0.6-1.0) Estimated GFR (Cockcroft-Gault) 74.2 64.8 Glucose Level 98mg/dL (70-99) 183mg/dL (70-99) Calcium Level 8.6mg/dL (8.5-10.1) 9.0mg/dL (8.5-10.1) Troponin I Quantitative < 0.017ng/mL (0.000-0.055) Segmented Neutrophils % 75% (35-66) Band Neutrophils % 4% (0-9) Lymphocytes % 19% (24-48) Monocytes % 2% (0-10) Platelet Estimate Adequate (ADEQUATE) Large Platelets Present Assessment and Plan Assessmemt and Plan Problems Medical Problems: (1) Hypoxia Status: Acute (2) SOB (shortness of breath) Status: Acute Problems: Comment Review of Relevant I have reviewed the following items enma (where applicable) has been applied. Labs Laboratory Tests Test 03/26/16 21:41 03/27/16 04:45 White Blood Count 10.9x10^3/uL (4.0-11.0) 9.9x10^3/uL (4.0-11.0) Red Blood Count 4.78x10^6/uL (3.50-5.40) 4.67x10^6/uL (3.50-5.40) Hemoglobin 14.2g/dL (12.0-15.5) 13.9g/dL (12.0-15.5) Hematocrit 42.1% (36.0-47.0) 41.3% (36.0-47.0) Mean Corpuscular Volume 88fL (79-100) 89fL (79-100) Mean Corpuscular Hemoglobin 30pg (25-35) 30pg (25-35) Mean Corpuscular Hemoglobin Concent 34g/dL (31-37) 34g/dL (31-37) Red Cell Distribution Width 13.1% (11.5-14.5) 13.1% (11.5-14.5) Platelet Count 199x10^3/uL (140-400) 215x10^3/uL (140-400) Neutrophils (%) (Auto) 65% (31-73) 86% (31-73) Lymphocytes (%) (Auto) 30% (24-48) 12% (24-48) Monocytes (%) (Auto) 5% (0-9) 2% (0-9) Eosinophils (%) (Auto) 0% (0-3) 0% (0-3) Basophils (%) (Auto) 1% (0-3) 0% (0-3) Neutrophils # (Auto) 7.0x10^3uL (1.8-7.7) 8.5x10^3uL (1.8-7.7) Lymphocytes # (Auto) 3.2x10^3/uL (1.0-4.8) 1.2x10^3/uL (1.0-4.8) Monocytes # (Auto) 0.5x10^3/uL (0.0-1.1) 0.2x10^3/uL (0.0-1.1) Eosinophils # (Auto) 0.0x10^3/uL (0.0-0.7) 0.0x10^3/uL (0.0-0.7) Basophils # (Auto) 0.1x10^3/uL (0.0-0.2) 0.0x10^3/uL (0.0-0.2) Sodium Level 140mmol/L (136-145) 140mmol/L (136-145) Potassium Level 3.6mmol/L (3.5-5.1) 4.4mmol/L (3.5-5.1) Chloride Level 103mmol/L (98-107) 102mmol/L (98-107) Carbon Dioxide Level 28mmol/L (21-32) 28mmol/L (21-32) Anion Gap 9 (6-14) 10 (6-14) Blood Urea Nitrogen 12mg/dL (7-20) 13mg/dL (7-20) Creatinine 0.8mg/dL (0.6-1.0) 0.9mg/dL (0.6-1.0) Estimated GFR (Cockcroft-Gault) 74.2 64.8 Glucose Level 98mg/dL (70-99) 183mg/dL (70-99) Calcium Level 8.6mg/dL (8.5-10.1) 9.0mg/dL (8.5-10.1) Troponin I Quantitative < 0.017ng/mL (0.000-0.055) Segmented Neutrophils % 75% (35-66) Band Neutrophils % 4% (0-9) Lymphocytes % 19% (24-48) Monocytes % 2% (0-10) Platelet Estimate Adequate (ADEQUATE) Large Platelets Present Laboratory Tests Test 03/26/16 21:41 03/27/16 04:45 White Blood Count 10.9x10^3/uL (4.0-11.0) 9.9x10^3/uL (4.0-11.0) Red Blood Count 4.78x10^6/uL (3.50-5.40) 4.67x10^6/uL (3.50-5.40) Hemoglobin 14.2g/dL (12.0-15.5) 13.9g/dL (12.0-15.5) Hematocrit 42.1% (36.0-47.0) 41.3% (36.0-47.0) Mean Corpuscular Volume 88fL (79-100) 89fL (79-100) Mean Corpuscular Hemoglobin 30pg (25-35) 30pg (25-35) Mean Corpuscular Hemoglobin Concent 34g/dL (31-37) 34g/dL (31-37) Red Cell Distribution Width 13.1% (11.5-14.5) 13.1% (11.5-14.5) Platelet Count 199x10^3/uL (140-400) 215x10^3/uL (140-400) Neutrophils (%) (Auto) 65% (31-73) 86% (31-73) Lymphocytes (%) (Auto) 30% (24-48) 12% (24-48) Monocytes (%) (Auto) 5% (0-9) 2% (0-9) Eosinophils (%) (Auto) 0% (0-3) 0% (0-3) Basophils (%) (Auto) 1% (0-3) 0% (0-3) Neutrophils # (Auto) 7.0x10^3uL (1.8-7.7) 8.5x10^3uL (1.8-7.7) Lymphocytes # (Auto) 3.2x10^3/uL (1.0-4.8) 1.2x10^3/uL (1.0-4.8) Monocytes # (Auto) 0.5x10^3/uL (0.0-1.1) 0.2x10^3/uL (0.0-1.1) Eosinophils # (Auto) 0.0x10^3/uL (0.0-0.7) 0.0x10^3/uL (0.0-0.7) Basophils # (Auto) 0.1x10^3/uL (0.0-0.2) 0.0x10^3/uL (0.0-0.2) Sodium Level 140mmol/L (136-145) 140mmol/L (136-145) Potassium Level 3.6mmol/L (3.5-5.1) 4.4mmol/L (3.5-5.1) Chloride Level 103mmol/L (98-107) 102mmol/L (98-107) Carbon Dioxide Level 28mmol/L (21-32) 28mmol/L (21-32) Anion Gap 9 (6-14) 10 (6-14) Blood Urea Nitrogen 12mg/dL (7-20) 13mg/dL (7-20) Creatinine 0.8mg/dL (0.6-1.0) 0.9mg/dL (0.6-1.0) Estimated GFR (Cockcroft-Gault) 74.2 64.8 Glucose Level 98mg/dL (70-99) 183mg/dL (70-99) Calcium Level 8.6mg/dL (8.5-10.1) 9.0mg/dL (8.5-10.1) Troponin I Quantitative < 0.017ng/mL (0.000-0.055) Segmented Neutrophils % 75% (35-66) Band Neutrophils % 4% (0-9) Lymphocytes % 19% (24-48) Monocytes % 2% (0-10) Platelet Estimate Adequate (ADEQUATE) Large Platelets Present Medications Current Medications Albuterol/ Ipratropium (Duoneb) 3 ml 1X ONCE NEB Last administered on 21:28; Start 03/26/16 at 21:30; Stop 03/26/16 at 21:31; Status DC Prednisone (Prednisone) 60 mg 1X ONCE PO Last administered on 03/26/16 21:49 ; Start 03/26/16 at 21:30; Stop 03/26/16 at 21:31; Status DC Ondansetron HCl (Zofran) 4 mg PRN Q8HRS PRN IV NAUSEA/VOMITING; Start 03/26/16 at 22:30; Stop 03/27/16 at 22:29 Morphine Sulfate 2 mg PRN Q2HR PRN IV PAIN; Start 03/26/16 at 22:30; Stop 03/27 at 22:29 Acetaminophen (Tylenol) 650 mg PRN Q4HRS PRN PO FEVER; Start 03/26/16 at 22:30 ; Stop 03/27/16 at 22:29 Albuterol/ Ipratropium (Duoneb) 3 ml RTQID NEB ; Start 03/27/16 at 08:00; Stop 03/27/16 at 08:00; Status DC Albuterol/ Ipratropium (Duoneb) 3 ml Q4HRS W/A NEB Last administered on 07:32; Start 03/27/16 at 10:00 Prednisone (Prednisone) 60 mg DAILY PO Last administered on 03/27/16 10:00; Start 03/27/16 at 09:00 Budesonide (Pulmicort) 0.5 mg RTBID NEB Last administered on 03/27/16 07:33; Start 03/27/16 at 08:00 Guaifenesin/ Codeine Phosphate (Robitussin Ac) 5 ml PRN Q6HRS PRN PO COUGH Last administered on 03/27/16 10:01; Start 03/27/16 at 01:00 Oxycodone HCl (Roxicodone) 5 mg PRN Q6HRS PRN PO PAIN; Start 03/27/16 at 01:00 Potassium Chloride (Klor-Con) 20 meq 1X ONCE PO Last administered on 10:01; Start 03/27/16 at 08:00; Stop 03/27/16 at 08:01; Status DC Albuterol/ Ipratropium (Duoneb) 3 ml 1X ONCE NEB Last administered on 01:22; Start 03/27/16 at 01:15; Stop 03/27/16 at 01:16; Status DC Active Scripts Active Guaifenesin 100 Mg/5 Ml Liquid 200 Mg PO PRN Q4HRS PRN Reported [no home meds] Vitals/I & O Vital Sign - Last 24 Hours 03/26/16 03/26/16 03/26/16 03/26/16 20:01 20:30 21:00 21:26 Temp 98.4 98.4 Pulse 113 92 96 Resp 28 B/P 140/100 117/59 127/60 Pulse Ox 93 92 90 96 O2 Delivery Room Air Room Air Room Air Nasal Cannula O2 Flow Rate 2.0 03/26/16 03/26/16 03/26/16 03/26/16 21:30 22:30 23:00 23:30 Pulse 100 94 94 B/P 151/100 118/66 117/68 Pulse Ox 97 94 94 O2 Delivery Room Air Room Air Room Air Nasal Cannula O2 Flow Rate 2.0 03/27/16 03/27/16 03/27/16 03/27/16 01:24 03:15 07:33 07:58 Temp 98.2 97.5 98.2 97.5 Pulse 93 86 Resp 24 23 B/P 118/65 118/71 Pulse Ox 96 95 96 94 O2 Delivery Nasal Cannula Nasal Cannula Nasal Cannula Nasal Cannula O2 Flow Rate 2.0 2.0 2.0 03/27/16 08:30 O2 Delivery Room Air Intake and Output 03/26/16 03/26/16 03/27/16 15:00 23:00 07:00 Intake Total 0 ml Output Total 150 ml Balance -150 ml SHERRI DANIELSON MD Mar 27, 2016 11:53
--- NOTE | 2016-03-27 12:25 | PDOC ---
Provider Note Provider Note dictated AECOPD/ LLL PNEUMONIA TYRONE AGUILAR MD Mar 27, 2016 12:25
[2016-03-27 15:30] VITALS: BP 112/63
[2016-03-27 19:00] VITALS: BP 128/65
[2016-03-27 23:00] VITALS: BP 144/77
--- NOTE | 2016-03-28 03:41 | CONS ---
DATE OF CONSULTATION: REASON FOR CONSULTATION: Dyspnea. ATTENDING PHYSICIAN: Hien Cota M.D. HISTORY OF PRESENT ILLNESS: The patient is a 55-year-old female who has been a smoker for 40 years. She was recently admitted with influenza and COPD exacerbation. She made clinical improvement and was subsequently discharged home. She did not require oxygen at the time of discharge. She was brought into the hospital with increasing shortness of breath. She says that she still had a cough, which was nonproductive. No fever has been reported since her hospitalization. Her chest x-ray revealed a new left lower lobe infiltrate. The patient appears to be ill. I have been asked to see her for further evaluation. PAST MEDICAL HISTORY: 1. History of 40 years of tobacco use, suspect underlying COPD. 2. Recent influenza. SURGERIES: Breast biopsy. ALLERGIES: ASPIRIN. CURRENT MEDICATIONS: Reviewed as listed in the MRAD including DuoNebs, Pulmicort and oral prednisone. SYSTEMS REVIEW: Twelve-point systems were obtained. Pertinent positives discussed in my history of present illness, otherwise noncontributory. All systems that were negative were reviewed as well. SOCIAL HISTORY: Smoker for 40 years. She just recently quit cigarettes. FAMILY HISTORY: Noncontributory to lungs. PHYSICAL EXAMINATION: VITAL SIGNS: Stable. Pulse ox 96% on 2 liters, afebrile. HEENT: Sclerae nonicteric. NECK: Supple. LUNGS: Diminished breath sounds. No wheezing. CARDIOVASCULAR: Regular rate. ABDOMEN: Soft, obese. EXTREMITIES: With no pitting edema. LABORATORIES: Reviewed. White cell count 10.9 on admit. Platelets 215. BUN 13, creatinine 0.9. IMPRESSION: 1. Dyspnea secondary to mild exacerbation of COPD. 2. Post-influenza, suspected left lower lobe bacterial pneumonia. 3. Underlying COPD from 40 years of tobacco use, unknown FEV1. 4. Hypoxia secondary to above. RECOMMENDATIONS: 1. We will add empiric antibiotics. 2. Continue with oral prednisone with gradual taper. 3. Continue with DuoNebs. 4. We will assess the need for home oxygen at the time of discharge. 5. Add DVT prophylaxis. We will follow along with you. Discussed with the patient's family and Dr. Cota. TYRONE AGUILAR MD DR: BAM/moe JOB#: [id number] / [id number] KYM
[2016-03-28] MEDS: GUAIFENESIN/CODEINE 100mg/10mg 5 ML LIQUID. PO PRN ×3 (07:08→18:51)
[2016-03-28 07:20] VITALS: BP 115/53
[2016-03-28] MEDS: BUDESONIDE 0.5 MG/2 ML NEBU NEB SCH ×2 (08:25→19:38)
[2016-03-28] MEDS: IPRATRPIUM/ALBUTEROL 0.5/2.5MG 3 ML NEBU. NEB SCH ×4 (08:25→19:39)
[2016-03-28] MEDS: PREDNISONE 20 MG TABLET PO SCH (10:47)
[2016-03-28 11:59] VITALS: BP 104/75
[2016-03-28] MEDS ORDERED: DIPHENHYDRAMINE/ZINC ACETATE 2%/0.1% TOPICAL CREAM 28GM TUBE. TP PRN (14:00)
--- NOTE | 2016-03-28 14:01 | PDOC ---
PULMONARY PROGRESS NOTES Subjective has sob, cough, sputum better, no pain, did smoke Vitals Vital Signs Date Time Temp Pulse Resp B/P Pulse Ox O2 Delivery O2 Flow Rate FiO2 03/28/16 13:22 Nasal Cannula 2.0 03/28/16 11:59 96.1 70 17 104/75 98 96.1 Comments ros as above other sys otherwise neg General: Alert, Oriented X4, Short term memory loss, (nc at perrl) HEENT: Other Lungs: Wheezing Cardiovascular: S1, S2 Abdomen: Soft Neuro Exam: Alert Extremities: No Edema Skin: Warm Labs Laboratory Tests Test 03/26/16 21:41 03/27/16 04:45 White Blood Count 10.9x10^3/uL (4.0-11.0) 9.9x10^3/uL (4.0-11.0) Red Blood Count 4.78x10^6/uL (3.50-5.40) 4.67x10^6/uL (3.50-5.40) Hemoglobin 14.2g/dL (12.0-15.5) 13.9g/dL (12.0-15.5) Hematocrit 42.1% (36.0-47.0) 41.3% (36.0-47.0) Mean Corpuscular Volume 88fL (79-100) 89fL (79-100) Mean Corpuscular Hemoglobin 30pg (25-35) 30pg (25-35) Mean Corpuscular Hemoglobin Concent 34g/dL (31-37) 34g/dL (31-37) Red Cell Distribution Width 13.1% (11.5-14.5) 13.1% (11.5-14.5) Platelet Count 199x10^3/uL (140-400) 215x10^3/uL (140-400) Neutrophils (%) (Auto) 65% (31-73) 86% (31-73) Lymphocytes (%) (Auto) 30% (24-48) 12% (24-48) Monocytes (%) (Auto) 5% (0-9) 2% (0-9) Eosinophils (%) (Auto) 0% (0-3) 0% (0-3) Basophils (%) (Auto) 1% (0-3) 0% (0-3) Neutrophils # (Auto) 7.0x10^3uL (1.8-7.7) 8.5x10^3uL (1.8-7.7) Lymphocytes # (Auto) 3.2x10^3/uL (1.0-4.8) 1.2x10^3/uL (1.0-4.8) Monocytes # (Auto) 0.5x10^3/uL (0.0-1.1) 0.2x10^3/uL (0.0-1.1) Eosinophils # (Auto) 0.0x10^3/uL (0.0-0.7) 0.0x10^3/uL (0.0-0.7) Basophils # (Auto) 0.1x10^3/uL (0.0-0.2) 0.0x10^3/uL (0.0-0.2) Sodium Level 140mmol/L (136-145) 140mmol/L (136-145) Potassium Level 3.6mmol/L (3.5-5.1) 4.4mmol/L (3.5-5.1) Chloride Level 103mmol/L (98-107) 102mmol/L (98-107) Carbon Dioxide Level 28mmol/L (21-32) 28mmol/L (21-32) Anion Gap 9 (6-14) 10 (6-14) Blood Urea Nitrogen 12mg/dL (7-20) 13mg/dL (7-20) Creatinine 0.8mg/dL (0.6-1.0) 0.9mg/dL (0.6-1.0) Estimated GFR (Cockcroft-Gault) 74.2 64.8 Glucose Level 98mg/dL (70-99) 183mg/dL (70-99) Calcium Level 8.6mg/dL (8.5-10.1) 9.0mg/dL (8.5-10.1) Troponin I Quantitative < 0.017ng/mL (0.000-0.055) Segmented Neutrophils % 75% (35-66) Band Neutrophils % 4% (0-9) Lymphocytes % 19% (24-48) Monocytes % 2% (0-10) Platelet Estimate Adequate (ADEQUATE) Large Platelets Present Medications Active Scripts Medications Dose Route/Sig Days Date Category Guaifenesin 100 Mg/5 Ml Liquid 200 Mg PO PRN Q4HRS PRN 03/25/16 Rx [no home meds] 03/21/16 Reported Comments cxr reviewed Suspected lingular and left lower lobe atelectasis or infiltrate, Impression . IMPRESSION: 1. Dyspnea secondary to mild exacerbation of COPD. 2. Post-influenza, suspected left lower lobe bacterial pneumonia. 3. Underlying COPD from 40 years of tobacco use, unknown FEV1. 4. Hypoxia secondary to above. 5. smoker Plan . RECOMMENDATIONS: 1. antibiotics. 2. Continue with oral prednisone with gradual taper. 3. Continue with DuoNebs. 4. We will assess the need for home oxygen at the time of discharge. 5. DVT prophylaxis. 6. bronchodilator 7. ics 8. advised to quit smoking discussed w pt and her family CHET JONES MD Mar 28, 2016 14:01
--- NOTE | 2016-03-28 14:03 | PDOC ---
PROGRESS NOTES Chief Complaint Chief Complaint Acute respiratory distress, cough LL pna sirs, sepsis Recent influenza, treated History of Present Illness History of Present Illness Periodic nebulizations low dose solumedrol labs reviewed, supportive care pulmonology consulted. no chest pain no fever breathing better at times, fluctuates Vitals Vitals Vital Signs Date Time Temp Pulse Resp B/P Pulse Ox O2 Delivery O2 Flow Rate FiO2 03/28/16 13:22 Nasal Cannula 2.0 03/28/16 11:59 96.1 70 17 104/75 98 96.1 Physical Exam General: Alert, Oriented X3, Cooperative, mild distress Heart: Normal S1, Normal S2 Lungs: Clear Abdomen: Normal bowel sounds, Soft Extremities: No clubbing, No cyanosis, No edema Skin: No rashes Review of Systems Review of Systems cough nausea dyspnea rash under breasts Assessment and Plan Assessmemt and Plan nystatin cough suppression abx Problems Medical Problems: (1) Hypoxia Status: Acute (2) SOB (shortness of breath) Status: Acute Problems: Comment Review of Relevant I have reviewed the following items enma (where applicable) has been applied. Labs Laboratory Tests Test 03/26/16 21:41 03/27/16 04:45 White Blood Count 10.9x10^3/uL (4.0-11.0) 9.9x10^3/uL (4.0-11.0) Red Blood Count 4.78x10^6/uL (3.50-5.40) 4.67x10^6/uL (3.50-5.40) Hemoglobin 14.2g/dL (12.0-15.5) 13.9g/dL (12.0-15.5) Hematocrit 42.1% (36.0-47.0) 41.3% (36.0-47.0) Mean Corpuscular Volume 88fL (79-100) 89fL (79-100) Mean Corpuscular Hemoglobin 30pg (25-35) 30pg (25-35) Mean Corpuscular Hemoglobin Concent 34g/dL (31-37) 34g/dL (31-37) Red Cell Distribution Width 13.1% (11.5-14.5) 13.1% (11.5-14.5) Platelet Count 199x10^3/uL (140-400) 215x10^3/uL (140-400) Neutrophils (%) (Auto) 65% (31-73) 86% (31-73) Lymphocytes (%) (Auto) 30% (24-48) 12% (24-48) Monocytes (%) (Auto) 5% (0-9) 2% (0-9) Eosinophils (%) (Auto) 0% (0-3) 0% (0-3) Basophils (%) (Auto) 1% (0-3) 0% (0-3) Neutrophils # (Auto) 7.0x10^3uL (1.8-7.7) 8.5x10^3uL (1.8-7.7) Lymphocytes # (Auto) 3.2x10^3/uL (1.0-4.8) 1.2x10^3/uL (1.0-4.8) Monocytes # (Auto) 0.5x10^3/uL (0.0-1.1) 0.2x10^3/uL (0.0-1.1) Eosinophils # (Auto) 0.0x10^3/uL (0.0-0.7) 0.0x10^3/uL (0.0-0.7) Basophils # (Auto) 0.1x10^3/uL (0.0-0.2) 0.0x10^3/uL (0.0-0.2) Sodium Level 140mmol/L (136-145) 140mmol/L (136-145) Potassium Level 3.6mmol/L (3.5-5.1) 4.4mmol/L (3.5-5.1) Chloride Level 103mmol/L (98-107) 102mmol/L (98-107) Carbon Dioxide Level 28mmol/L (21-32) 28mmol/L (21-32) Anion Gap 9 (6-14) 10 (6-14) Blood Urea Nitrogen 12mg/dL (7-20) 13mg/dL (7-20) Creatinine 0.8mg/dL (0.6-1.0) 0.9mg/dL (0.6-1.0) Estimated GFR (Cockcroft-Gault) 74.2 64.8 Glucose Level 98mg/dL (70-99) 183mg/dL (70-99) Calcium Level 8.6mg/dL (8.5-10.1) 9.0mg/dL (8.5-10.1) Troponin I Quantitative < 0.017ng/mL (0.000-0.055) Segmented Neutrophils % 75% (35-66) Band Neutrophils % 4% (0-9) Lymphocytes % 19% (24-48) Monocytes % 2% (0-10) Platelet Estimate Adequate (ADEQUATE) Large Platelets Present Medications Current Medications Albuterol/ Ipratropium (Duoneb) 3 ml 1X ONCE NEB Last administered on 21:28; Start 03/26/16 at 21:30; Stop 03/26/16 at 21:31; Status DC Prednisone (Prednisone) 60 mg 1X ONCE PO Last administered on 03/26/16 21:49 ; Start 03/26/16 at 21:30; Stop 03/26/16 at 21:31; Status DC Ondansetron HCl (Zofran) 4 mg PRN Q8HRS PRN IV NAUSEA/VOMITING; Start 03/26/16 at 22:30; Stop 03/27/16 at 22:29; Status DC Morphine Sulfate 2 mg PRN Q2HR PRN IV PAIN; Start 03/26/16 at 22:30; Stop 03/27 at 22:29; Status DC Acetaminophen (Tylenol) 650 mg PRN Q4HRS PRN PO FEVER; Start 03/26/16 at 22:30 ; Stop 03/27/16 at 22:29; Status DC Albuterol/ Ipratropium (Duoneb) 3 ml RTQID NEB ; Start 03/27/16 at 08:00; Stop 03/27/16 at 08:00; Status DC Albuterol/ Ipratropium (Duoneb) 3 ml Q4HRS W/A NEB Last administered on 13:21; Start 03/27/16 at 10:00 Prednisone (Prednisone) 60 mg DAILY PO Last administered on 03/28/16 10:47; Start 03/27/16 at 09:00 Budesonide (Pulmicort) 0.5 mg RTBID NEB Last administered on 03/28/16 08:25; Start 03/27/16 at 08:00 Guaifenesin/ Codeine Phosphate (Robitussin Ac) 5 ml PRN Q6HRS PRN PO COUGH Last administered on 03/28/16 07:08; Start 03/27/16 at 01:00 Oxycodone HCl (Roxicodone) 5 mg PRN Q6HRS PRN PO PAIN; Start 03/27/16 at 01:00 Potassium Chloride (Klor-Con) 20 meq 1X ONCE PO Last administered on 10:01; Start 03/27/16 at 08:00; Stop 03/27/16 at 08:01; Status DC Albuterol/ Ipratropium 3 ml 3 ml 1X ONCE NEB Last administered on 03/27/16 01 :22; Start 03/27/16 at 01:15; Stop 03/27/16 at 01:16; Status DC Levofloxacin/ Dextrose (LEVAQUIN 500mg PREMIX) 100 ml @ 100 mls/hr Q24H IV Last administered on 03/28/16 13:38; Start 03/27/16 at 13:00 Active Scripts Active Guaifenesin 100 Mg/5 Ml Liquid 200 Mg PO PRN Q4HRS PRN Reported [no home meds] Vitals/I & O Vital Sign - Last 24 Hours 03/27/16 03/27/16 03/27/16 03/27/16 15:30 16:07 18:00 19:00 Temp 97.8 99.3 97.8 99.3 Pulse 96 89 Resp 24 19 B/P 112/63 128/65 Pulse Ox 96 96 95 O2 Delivery Nasal Cannula Nasal Cannula Nasal Cannula O2 Flow Rate 2.0 2.0 2.0 2.0 03/27/16 03/27/16 03/27/16 03/27/16 20:00 20:59 21:00 23:00 Temp 97.5 97.5 Pulse 87 Resp 18 B/P 144/77 Pulse Ox 94 94 95 O2 Delivery Nasal Cannula Nasal Cannula Nasal Cannula Nasal Cannula O2 Flow Rate 2.0 2.0 2.0 2.0 03/28/16 03/28/16 03/28/16 03/28/16 07:20 08:27 11:59 13:22 Temp 95.9 96.1 95.9 96.1 Pulse 79 70 Resp 16 17 B/P 115/53 104/75 Pulse Ox 96 97 98 O2 Delivery Room Air Nasal Cannula Room Air Nasal Cannula O2 Flow Rate 2.0 2.0 Intake and Output 03/27/16 03/27/16 03/28/16 15:00 23:00 07:00 Intake Total 100 ml 1750 ml 500 ml Output Total 350 ml 600 ml Balance -250 ml 1150 ml 500 ml JARAD KEITH MD Mar 28, 2016 14:03
[2016-03-28 15:20] VITALS: BP 117/66
[2016-03-28] MEDS: NYSTATIN TOPICAL POWDER 15GM BOTTLE. TP SCH ×2 (17:10→20:45)
[2016-03-28 19:00] VITALS: BP 117/73
[2016-03-28 23:03] VITALS: BP 123/65
[2016-03-29] MEDS: IPRATRPIUM/ALBUTEROL 0.5/2.5MG 3 ML NEBU. NEB SCH ×5 (01:24→20:40)
[2016-03-29 02:41] VITALS: BP 130/73
[2016-03-29 07:00] VITALS: BP 125/75
[2016-03-29] MEDS: BUDESONIDE 0.5 MG/2 ML NEBU NEB SCH ×2 (08:03→20:41)
--- NOTE | 2016-03-29 08:27 | PDOC ---
PULMONARY PROGRESS NOTES Subjective has sob, has more cough, this am. no pain, did smoke Vitals Vital Signs Date Time Temp Pulse Resp B/P Pulse Ox O2 Delivery O2 Flow Rate FiO2 03/29/16 08:10 96 Nasal Cannula 2.0 03/29/16 07:00 96.4 63 18 125/75 96.4 Comments ros as above other sys otherwise neg General: Alert, Oriented X4, Short term memory loss, (nc at perrl) HEENT: Other Lungs: Wheezing Cardiovascular: S1, S2 Abdomen: Soft Neuro Exam: Alert Extremities: No Edema Skin: Warm Medications Active Scripts Medications Dose Route/Sig Days Date Category Guaifenesin 100 Mg/5 Ml Liquid 200 Mg PO PRN Q4HRS PRN 03/25/16 Rx [no home meds] 03/21/16 Reported Comments cxr reviewed Suspected lingular and left lower lobe atelectasis or infiltrate, Impression . IMPRESSION: 1. Dyspnea secondary to mild exacerbation of COPD. 2. Post-influenza, suspected left lower lobe bacterial pneumonia. 3. Underlying COPD from 40 years of tobacco use a ae. unknown FEV1. 4. Hypoxia secondary to above. 5. smoker Plan . RECOMMENDATIONS: 1. antibiotics. 2. Continue with oral prednisone with gradual taper. 3. Continue with DuoNebs. 4. We will assess the need for home oxygen at the time of discharge. 5. DVT prophylaxis. 6. bronchodilator 7. ics 8. advised to quit smoking 9. mel rangel discussed w pt and her family CHET JONES MD Mar 29, 2016 08:27
[2016-03-29] MEDS: PREDNISONE 20 MG TABLET PO SCH (08:52)
[2016-03-29] MEDS: NYSTATIN TOPICAL POWDER 15GM BOTTLE. TP SCH ×2 (08:52→20:50)
[2016-03-29] MEDS: GUAIFENESIN/CODEINE 100mg/10mg 5 ML LIQUID. PO PRN ×3 (08:55→20:51)
[2016-03-29 11:00] VITALS: BP 118/78
--- NOTE | 2016-03-29 12:17 | PDOC ---
PROGRESS NOTES Chief Complaint Chief Complaint Acute respiratory distress, hypoxia COPD Ae, cough LL pna sirs, sepsis Recent influenza, treated - late effect, inflammation History of Present Illness History of Present Illness still coughing, and having malaise, dyspnea Periodic nebulizations solumedrol supportive care pulmonology following no chest pain no fever breathing better at times, sx fluctuate Vitals Vitals Vital Signs Date Time Temp Pulse Resp B/P Pulse Ox O2 Delivery O2 Flow Rate FiO2 03/29/16 11:38 Nasal Cannula 2.0 03/29/16 11:00 98.4 78 18 118/78 97 98.4 Physical Exam General: Alert, Oriented X3, Cooperative, mild distress Heart: Normal S1, Normal S2 Lungs: Wheezing (better, very faint on exam now) Abdomen: Normal bowel sounds, Soft Extremities: No clubbing, No cyanosis, No edema Skin: No rashes Review of Systems Review of Systems still has cough and malaise and dyspnea and not feeling well Assessment and Plan Assessmemt and Plan Problems Medical Problems: (1) Hypoxia Status: Acute (2) SOB (shortness of breath) Status: Acute Problems: Comment Review of Relevant I have reviewed the following items enma (where applicable) has been applied. Medications Current Medications Albuterol/ Ipratropium (Duoneb) 3 ml 1X ONCE NEB Last administered on 21:28; Start 03/26/16 at 21:30; Stop 03/26/16 at 21:31; Status DC Prednisone (Prednisone) 60 mg 1X ONCE PO Last administered on 03/26/16 21:49 ; Start 03/26/16 at 21:30; Stop 03/26/16 at 21:31; Status DC Ondansetron HCl (Zofran) 4 mg PRN Q8HRS PRN IV NAUSEA/VOMITING; Start 03/26/16 at 22:30; Stop 03/27/16 at 22:29; Status DC Morphine Sulfate 2 mg PRN Q2HR PRN IV PAIN; Start 03/26/16 at 22:30; Stop 03/27 at 22:29; Status DC Acetaminophen (Tylenol) 650 mg PRN Q4HRS PRN PO FEVER; Start 03/26/16 at 22:30 ; Stop 03/27/16 at 22:29; Status DC Albuterol/ Ipratropium (Duoneb) 3 ml RTQID NEB ; Start 03/27/16 at 08:00; Stop 03/27/16 at 08:00; Status DC Albuterol/ Ipratropium (Duoneb) 3 ml Q4HRS W/A NEB Last administered on 11:37; Start 03/27/16 at 10:00 Prednisone (Prednisone) 60 mg DAILY PO Last administered on 03/29/16 08:52; Start 03/27/16 at 09:00 Budesonide (Pulmicort) 0.5 mg RTBID NEB Last administered on 03/29/16 08:03; Start 03/27/16 at 08:00 Guaifenesin/ Codeine Phosphate (Robitussin Ac) 5 ml PRN Q6HRS PRN PO COUGH Last administered on 03/29/16 08:55; Start 03/27/16 at 01:00 Oxycodone HCl (Roxicodone) 5 mg PRN Q6HRS PRN PO PAIN; Start 03/27/16 at 01:00 Potassium Chloride (Klor-Con) 20 meq 1X ONCE PO Last administered on 10:01; Start 03/27/16 at 08:00; Stop 03/27/16 at 08:01; Status DC Albuterol/ Ipratropium 3 ml 3 ml 1X ONCE NEB Last administered on 03/27/16 01 :22; Start 03/27/16 at 01:15; Stop 03/27/16 at 01:16; Status DC Levofloxacin/ Dextrose (LEVAQUIN 500mg PREMIX) 100 ml @ 100 mls/hr Q24H IV Last administered on 03/28/16 13:38; Start 03/27/16 at 13:00 Nystatin (Nystop) 1 minh BID TP Last administered on 03/29/16 08:52; Start at 14:00 Zinc Acetate/ Diphenhydramine (Benadryl Extra Strength) 1 minh PRN Q4HRS PRN TP puruitis; Start 03/28/16 at 14:00 Montelukast Sodium (Singulair) 10 mg QHS PO ; Start 03/29/16 at 21:00 Active Scripts Active Guaifenesin 100 Mg/5 Ml Liquid 200 Mg PO PRN Q4HRS PRN Reported [no home meds] Vitals/I & O Vital Sign - Last 24 Hours 03/28/16 03/28/16 03/28/16 03/28/16 13:22 15:20 16:24 19:00 Temp 97.5 96.6 97.5 96.6 Pulse 80 84 Resp 17 20 B/P 117/66 117/73 Pulse Ox 95 96 O2 Delivery Nasal Cannula Room Air Nasal Cannula Nasal Cannula O2 Flow Rate 2.0 2.0 2.0 03/28/16 03/28/16 03/28/16 03/29/16 19:42 20:00 23:03 01:25 Temp 97.7 97.7 Pulse 90 Resp 20 B/P 123/65 Pulse Ox 95 97 97 O2 Delivery Nasal Cannula Nasal Cannula Nasal Cannula Nasal Cannula O2 Flow Rate 2.0 2.0 2.0 2.0 03/29/16 03/29/16 03/29/16 03/29/16 02:41 07:00 08:00 08:06 Temp 96.9 96.4 96.9 96.4 Pulse 85 63 Resp 20 18 B/P 130/73 125/75 Pulse Ox 96 93 96 O2 Delivery Nasal Cannula Room Air Nasal Cannula Nasal Cannula O2 Flow Rate 2.0 2.0 2.0 03/29/16 03/29/16 03/29/16 08:10 11:00 11:38 Temp 98.4 98.4 Pulse 78 Resp 18 B/P 118/78 Pulse Ox 96 97 O2 Delivery Nasal Cannula Nasal Cannula Nasal Cannula O2 Flow Rate 2.0 2.0 2.0 Intake and Output 03/28/16 03/28/16 03/29/16 15:00 23:00 07:00 Intake Total 100 ml 400 ml Balance 100 ml 400 ml JARAD KEITH MD Mar 29, 2016 12:17
[2016-03-29 15:00] VITALS: BP 112/58
[2016-03-29 20:00] VITALS: BP 131/84
[2016-03-29] MEDS: MONTELUKAST SODIUM 10 MG TABLET. PO SCH (20:50)
[2016-03-29 23:12] VITALS: BP 121/62
[2016-03-30 03:19] VITALS: BP 103/66
[2016-03-30 07:00] VITALS: BP 106/81
[2016-03-30] MEDS: BUDESONIDE 0.5 MG/2 ML NEBU NEB SCH ×2 (07:43→21:12)
[2016-03-30] MEDS: IPRATRPIUM/ALBUTEROL 0.5/2.5MG 3 ML NEBU. NEB SCH ×4 (07:43→21:12)
[2016-03-30] MEDS: PREDNISONE 20 MG TABLET PO SCH (08:01)
[2016-03-30] MEDS: GUAIFENESIN/CODEINE 100mg/10mg 5 ML LIQUID. PO PRN ×3 (08:01→19:29)
[2016-03-30] MEDS: NYSTATIN TOPICAL POWDER 15GM BOTTLE. TP SCH ×2 (08:01→19:31)
--- NOTE | 2016-03-30 10:03 | PDOC ---
PULMONARY PROGRESS NOTES Subjective has sob, has dry cough, slightly better. no pain, did smoke Vitals Vital Signs Date Time Temp Pulse Resp B/P Pulse Ox O2 Delivery O2 Flow Rate FiO2 03/30/16 07:50 95 Nasal Cannula 2.0 03/30/16 07:00 97.7 86 20 106/81 97.7 Comments ros as above other sys otherwise neg General: Alert, Oriented X4, Short term memory loss, (nc at perrl) HEENT: Other Lungs: Wheezing (better, very faint on exam now) Cardiovascular: S1, S2 Abdomen: Soft Neuro Exam: Alert Extremities: No Edema Skin: Warm Medications Active Scripts Medications Dose Route/Sig Days Date Category Guaifenesin 100 Mg/5 Ml Liquid 200 Mg PO PRN Q4HRS PRN 03/25/16 Rx [no home meds] 03/21/16 Reported Comments cxr reviewed Suspected lingular and left lower lobe atelectasis or infiltrate, Impression . IMPRESSION: 1. Dyspnea secondary to mild exacerbation of COPD. 2. Post-influenza, suspected left lower lobe bacterial pneumonia. 3. Underlying COPD from 40 years of tobacco use and ae. unknown FEV1. 4. Hypoxia secondary to above. 5. smoker Plan . RECOMMENDATIONS: 1. antibiotics. 2. Continue with oral prednisone with gradual taper. 3. Continue with DuoNebs. 4. We will assess the need for home oxygen at the time of discharge. 5. DVT prophylaxis. 6. bronchodilator 7. ics 8. advised to quit smoking 9. claire discussed w pt and her family CHET JONES MD Mar 30, 2016 10:03
[2016-03-30 11:00] VITALS: BP 99/57
[2016-03-30 15:00] VITALS: BP 117/69
--- NOTE | 2016-03-30 15:19 | PDOC ---
PROGRESS NOTES Chief Complaint Chief Complaint Acute respiratory distress, hypoxia COPD Ae, cough LL pna sirs, sepsis Recent influenza, treated - late effect, inflammation History of Present Illness History of Present Illness still coughing, and having malaise, dyspnea can walk 3 laps of unit, but needs assist does not feel well for DC Periodic nebulizations steroids supportive care pulmonology following no chest pain no fever advocated hydrocodone for additional cough suppression Vitals Vitals Vital Signs Date Time Temp Pulse Resp B/P Pulse Ox O2 Delivery O2 Flow Rate FiO2 03/30/16 15:00 97.7 91 20 117/69 96 Nasal Cannula 2.0 97.7 Physical Exam General: Alert, Oriented X3, Cooperative, mild distress Heart: Normal S1, Normal S2 Lungs: Wheezing (better, very faint on exam now) Abdomen: Normal bowel sounds, Soft Extremities: No clubbing, No cyanosis, No edema Skin: No rashes Review of Systems Review of Systems cough, malaise,, dyspnea Assessment and Plan Assessmemt and Plan will need 6 min walk before DC, consider tomorrow Problems Medical Problems: (1) Hypoxia Status: Acute (2) SOB (shortness of breath) Status: Acute Problems: Comment Review of Relevant I have reviewed the following items enma (where applicable) has been applied. Medications Current Medications Albuterol/ Ipratropium (Duoneb) 3 ml 1X ONCE NEB Last administered on 21:28; Start 03/26/16 at 21:30; Stop 03/26/16 at 21:31; Status DC Prednisone (Prednisone) 60 mg 1X ONCE PO Last administered on 03/26/16 21:49 ; Start 03/26/16 at 21:30; Stop 03/26/16 at 21:31; Status DC Ondansetron HCl (Zofran) 4 mg PRN Q8HRS PRN IV NAUSEA/VOMITING; Start 03/26/16 at 22:30; Stop 03/27/16 at 22:29; Status DC Morphine Sulfate 2 mg PRN Q2HR PRN IV PAIN; Start 03/26/16 at 22:30; Stop 03/27 at 22:29; Status DC Acetaminophen (Tylenol) 650 mg PRN Q4HRS PRN PO FEVER; Start 03/26/16 at 22:30 ; Stop 03/27/16 at 22:29; Status DC Albuterol/ Ipratropium (Duoneb) 3 ml RTQID NEB ; Start 03/27/16 at 08:00; Stop 03/27/16 at 08:00; Status DC Albuterol/ Ipratropium (Duoneb) 3 ml Q4HRS W/A NEB Last administered on 07:43; Start 03/27/16 at 10:00 Prednisone (Prednisone) 60 mg DAILY PO Last administered on 03/30/16 08:01; Start 03/27/16 at 09:00 Budesonide (Pulmicort) 0.5 mg RTBID NEB Last administered on 03/30/16 07:43; Start 03/27/16 at 08:00 Guaifenesin/ Codeine Phosphate (Robitussin Ac) 5 ml PRN Q6HRS PRN PO COUGH Last administered on 03/30/16 14:09; Start 03/27/16 at 01:00 Oxycodone HCl (Roxicodone) 5 mg PRN Q6HRS PRN PO PAIN; Start 03/27/16 at 01:00 Potassium Chloride (Klor-Con) 20 meq 1X ONCE PO Last administered on 10:01; Start 03/27/16 at 08:00; Stop 03/27/16 at 08:01; Status DC Albuterol/ Ipratropium 3 ml 3 ml 1X ONCE NEB Last administered on 03/27/16 01 :22; Start 03/27/16 at 01:15; Stop 03/27/16 at 01:16; Status DC Levofloxacin/ Dextrose (LEVAQUIN 500mg PREMIX) 100 ml @ 100 mls/hr Q24H IV Last administered on 03/30/16 12:39; Start 03/27/16 at 13:00 Nystatin (Nystop) 1 minh BID TP Last administered on 03/30/16 08:01; Start at 14:00 Zinc Acetate/ Diphenhydramine (Benadryl Extra Strength) 1 minh PRN Q4HRS PRN TP puruitis; Start 03/28/16 at 14:00 Montelukast Sodium (Singulair) 10 mg QHS PO Last administered on 03/29/16 20: 50; Start 03/29/16 at 21:00 Acetaminophen/ Hydrocodone Bitart (Lortab 5/325) 1 tab PRN Q4HRS PRN PO COUGH; Start 03/30/16 at 15:15 Active Scripts Active Guaifenesin 100 Mg/5 Ml Liquid 200 Mg PO PRN Q4HRS PRN Reported [no home meds] Vitals/I & O Vital Sign - Last 24 Hours 03/29/16 03/29/16 03/29/16 03/29/16 15:35 20:00 20:00 20:43 Temp 97.9 97.9 Pulse 91 Resp 22 B/P 131/84 Pulse Ox 94 97 O2 Delivery Nasal Cannula Nasal Cannula Nasal Cannula Nasal Cannula O2 Flow Rate 2.0 2.0 2.0 2.0 03/29/16 03/29/16 03/30/16 03/30/16 20:44 23:12 03:19 07:00 Temp 97.0 97.0 97.7 97.0 97.0 97.7 Pulse 85 93 86 Resp 18 20 20 B/P 121/62 103/66 106/81 Pulse Ox 97 96 94 96 O2 Delivery Nasal Cannula Room Air Room Air Nasal Cannula O2 Flow Rate 2.0 2.0 03/30/16 03/30/16 03/30/16 03/30/16 07:35 07:46 07:50 11:00 Temp 98.2 98.2 Pulse 101 Resp 20 B/P 99/57 Pulse Ox 95 95 95 O2 Delivery Nasal Cannula Nasal Cannula Nasal Cannula Nasal Cannula O2 Flow Rate 2.0 2.0 2.0 2.0 03/30/16 03/30/16 12:05 15:00 Temp 97.7 97.7 Pulse 91 Resp 20 B/P 117/69 Pulse Ox 96 O2 Delivery Nasal Cannula Nasal Cannula O2 Flow Rate 2.0 2.0 Intake and Output 03/29/16 03/29/16 03/30/16 15:00 23:00 07:00 Intake Total 240 ml Balance 240 ml JARAD KEITH MD Mar 30, 2016 15:19
[2016-03-30] MEDS: HYDROCODONE/APAP 5/325MG TABLET. PO PRN ×2 (15:31→22:18)
[2016-03-30 19:00] VITALS: BP 110/66
[2016-03-30] MEDS: MONTELUKAST SODIUM 10 MG TABLET. PO SCH (19:31)
[2016-03-30] MEDS ORDERED: BENZOCAINE/MENTHOL LOZENGE. PO PRN (22:15)
[2016-03-30 23:16] VITALS: BP 118/72
[2016-03-31 02:41] VITALS: BP 115/76
[2016-03-31 07:00] VITALS: BP 114/70
[2016-03-31] MEDS: BUDESONIDE 0.5 MG/2 ML NEBU NEB SCH ×2 (07:42→19:44)
[2016-03-31] MEDS: IPRATRPIUM/ALBUTEROL 0.5/2.5MG 3 ML NEBU. NEB SCH ×5 (07:42→23:49)
[2016-03-31] MEDS: PREDNISONE 20 MG TABLET PO SCH (08:52)
[2016-03-31] MEDS: NYSTATIN TOPICAL POWDER 15GM BOTTLE. TP SCH ×2 (08:52→20:35)
[2016-03-31 11:00] VITALS: BP 121/69
--- NOTE | 2016-03-31 12:54 | PDOC ---
PULMONARY PROGRESS NOTES Subjective has sob, has dry cough, slightly better. no pain, did smoke Vitals Vital Signs Date Time Temp Pulse Resp B/P Pulse Ox O2 Delivery O2 Flow Rate FiO2 03/31/16 11:45 Nasal Cannula 2.0 03/31/16 11:00 98.0 78 121/69 98.0 03/31/16 11:00 24 03/31/16 11:00 98 Comments ros as above other sys otherwise neg General: Alert, Oriented X4, Short term memory loss, (nc at perrl) HEENT: Other Lungs: Wheezing (better, very faint on exam now) Cardiovascular: S1, S2 Abdomen: Soft Neuro Exam: Alert Extremities: No Edema Skin: Warm Medications Active Scripts Medications Dose Route/Sig Days Date Category Guaifenesin 100 Mg/5 Ml Liquid 200 Mg PO PRN Q4HRS PRN 03/25/16 Rx [no home meds] 03/21/16 Reported Comments cxr reviewed Suspected lingular and left lower lobe atelectasis or infiltrate, Impression . 1. Dyspnea secondary to mild exacerbation of COPD. 2. Post-influenza, suspected left lower lobe bacterial pneumonia. 3. Underlying COPD from 40 years of tobacco use and ae. unknown FEV1. 4. Hypoxia secondary to above. 5. smoker Plan . 1. antibiotics. 2. Continue with oral prednisone with gradual taper. 3. Continue with DuoNebs. 4. We will assess the need for home oxygen at the time of discharge. 5. DVT prophylaxis. 6. bronchodilator 7. ics 8. advised to quit smoking 9. claire discussed w pt and her family/ repeat cxr today TYRONE AGUILAR MD Mar 31, 2016 12:54
[2016-03-31 15:00] VITALS: BP 115/67
--- NOTE | 2016-03-31 15:18 | RAD ---
Indication left lower lobe pneumonia. Follow-up. Cough. Wheezing. Duration of symptoms a few days. A single view of the chest was obtained and is compared to a study 5 days earlier. Patchy infiltrates seen previously in the left lung, compatible with pneumonia, has improved substantially. A new finding in the chest is not seen. Significant pleural fluid is not seen and there is no pneumothorax. IMPRESSION: Substantial improvement. No new finding seen
[2016-03-31] MEDS: GUAIFENESIN/CODEINE 100mg/10mg 5 ML LIQUID. PO PRN ×2 (15:55→23:30)
--- NOTE | 2016-03-31 18:20 | PDOC ---
PROGRESS NOTES Chief Complaint Chief Complaint Acute hypoxic respiratory distress ASSESSMENT AND PLAN: 1. LL PNA: on levaquin empirically. 2. COPD exacerbation: on steroids, nebs, suppl O2 3. Sepsis: resolved 4. Recent influenza, treated - late effect, inflammation Vitals Vitals Vital Signs Date Time Temp Pulse Resp B/P Pulse Ox O2 Delivery O2 Flow Rate FiO2 03/31/16 15:46 Nasal Cannula 2.0 03/31/16 15:00 97.6 83 24 115/67 96 97.6 Physical Exam General: Alert, Oriented X3, Cooperative, mild distress Heart: Normal S1, Normal S2 Lungs: Wheezing (better, very faint on exam now) Abdomen: Normal bowel sounds, Soft Extremities: No clubbing, No cyanosis, No edema Skin: No rashes Review of Systems Review of Systems remains SOB, albeit improved. + cough Comment Review of Relevant I have reviewed the following items enma (where applicable) has been applied. Medications Current Medications Albuterol/ Ipratropium (Duoneb) 3 ml 1X ONCE NEB Last administered on 21:28; Start 03/26/16 at 21:30; Stop 03/26/16 at 21:31; Status DC Prednisone (Prednisone) 60 mg 1X ONCE PO Last administered on 03/26/16 21:49 ; Start 03/26/16 at 21:30; Stop 03/26/16 at 21:31; Status DC Ondansetron HCl (Zofran) 4 mg PRN Q8HRS PRN IV NAUSEA/VOMITING; Start 03/26/16 at 22:30; Stop 03/27/16 at 22:29; Status DC Morphine Sulfate 2 mg PRN Q2HR PRN IV PAIN; Start 03/26/16 at 22:30; Stop 03/27 at 22:29; Status DC Acetaminophen (Tylenol) 650 mg PRN Q4HRS PRN PO FEVER; Start 03/26/16 at 22:30 ; Stop 03/27/16 at 22:29; Status DC Albuterol/ Ipratropium (Duoneb) 3 ml RTQID NEB ; Start 03/27/16 at 08:00; Stop 03/27/16 at 08:00; Status DC Albuterol/ Ipratropium (Duoneb) 3 ml Q4HRS W/A NEB Last administered on 15:45; Start 03/27/16 at 10:00 Prednisone (Prednisone) 60 mg DAILY PO Last administered on 03/31/16 08:52; Start 03/27/16 at 09:00 Budesonide (Pulmicort) 0.5 mg RTBID NEB Last administered on 03/31/16 07:42; Start 03/27/16 at 08:00 Guaifenesin/ Codeine Phosphate (Robitussin Ac) 5 ml PRN Q6HRS PRN PO COUGH Last administered on 03/31/16 15:55; Start 03/27/16 at 01:00 Oxycodone HCl (Roxicodone) 5 mg PRN Q6HRS PRN PO PAIN; Start 03/27/16 at 01:00 Potassium Chloride (Klor-Con) 20 meq 1X ONCE PO Last administered on 10:01; Start 03/27/16 at 08:00; Stop 03/27/16 at 08:01; Status DC Albuterol/ Ipratropium 3 ml 3 ml 1X ONCE NEB Last administered on 03/27/16 01 :22; Start 03/27/16 at 01:15; Stop 03/27/16 at 01:16; Status DC Levofloxacin/ Dextrose (LEVAQUIN 500mg PREMIX) 100 ml @ 100 mls/hr Q24H IV Last administered on 03/31/16 12:59; Start 03/27/16 at 13:00 Nystatin (Nystop) 1 minh BID TP Last administered on 03/31/16 08:52; Start at 14:00 Zinc Acetate/ Diphenhydramine (Benadryl Extra Strength) 1 minh PRN Q4HRS PRN TP puruitis; Start 03/28/16 at 14:00 Montelukast Sodium (Singulair) 10 mg QHS PO Last administered on 03/30/16 19: 31; Start 03/29/16 at 21:00 Acetaminophen/ Hydrocodone Bitart (Lortab 5/325) 1 tab PRN Q4HRS PRN PO COUGH Last administered on 03/30/16 22:18; Start 03/30/16 at 15:15 Throat Lozenges (Cepacol Sore Throat Lozenge) 1 andre PRN Q2HRS PRN PO SORE THROAT; Start 03/30/16 at 22:15; Status UNV Active Scripts Active Guaifenesin 100 Mg/5 Ml Liquid 200 Mg PO PRN Q4HRS PRN Reported [no home meds] Vitals/I & O Vital Sign - Last 24 Hours 03/30/16 03/30/16 03/30/16 03/30/16 19:00 20:00 21:14 21:15 Temp 97.6 97.6 Pulse 86 Resp 20 B/P 110/66 Pulse Ox 95 97 97 O2 Delivery Nasal Cannula Nasal Cannula Nasal Cannula Nasal Cannula O2 Flow Rate 2.0 2.0 2.0 2.0 03/30/16 03/30/16 03/31/16 03/31/16 22:18 23:16 02:41 07:00 Temp 97.8 97.8 97.8 97.8 97.8 97.8 Pulse 84 77 93 Resp 20 18 18 B/P 118/72 115/76 114/70 Pulse Ox 95 96 93 O2 Delivery Nasal Cannula Nasal Cannula Nasal Cannula Nasal Cannula O2 Flow Rate 2.0 2.0 2.0 2.0 03/31/16 03/31/16 03/31/16 03/31/16 07:42 08:00 11:00 11:00 Resp 24 Pulse Ox 97 98 O2 Delivery Nasal Cannula Nasal Cannula Nasal Cannula O2 Flow Rate 2.0 2.0 2.0 03/31/16 03/31/16 03/31/16 03/31/16 11:00 11:45 15:00 15:46 Temp 98.0 97.6 98.0 97.6 Pulse 78 83 Resp 24 B/P 121/69 115/67 Pulse Ox 96 O2 Delivery Nasal Cannula Nasal Cannula Nasal Cannula O2 Flow Rate 2.0 2.0 Intake and Output 03/30/16 03/30/16 03/31/16 15:00 23:00 07:00 Intake Total 240 ml Balance 240 ml GAYATRI MAY MD Mar 31, 2016 18:20
[2016-03-31 19:00] VITALS: BP 128/80
[2016-03-31] MEDS: MONTELUKAST SODIUM 10 MG TABLET. PO SCH (20:35)
[2016-03-31] MEDS: HYDROCODONE/APAP 5/325MG TABLET. PO PRN (20:37)
[2016-03-31 23:00] VITALS: BP 122/76
[2016-04-01] MEDS: HYDROCODONE/APAP 5/325MG TABLET. PO PRN (01:05)
[2016-04-01] MEDS: IPRATRPIUM/ALBUTEROL 0.5/2.5MG 3 ML NEBU. NEB SCH ×5 (06:00→19:23)
[2016-04-01 07:05] VITALS: BP 106/66
[2016-04-01] MEDS: BUDESONIDE 0.5 MG/2 ML NEBU NEB SCH ×2 (07:29→15:17)
[2016-04-01] MEDS: GUAIFENESIN/CODEINE 100mg/10mg 5 ML LIQUID. PO PRN (07:31)
[2016-04-01] MEDS: PREDNISONE 20 MG TABLET PO SCH (08:48)
[2016-04-01] MEDS: NYSTATIN TOPICAL POWDER 15GM BOTTLE. TP SCH ×2 (08:48→20:15)
[2016-04-01 11:10] VITALS: BP 100/65
--- NOTE | 2016-04-01 13:55 | PDOC ---
PULMONARY PROGRESS NOTES Subjective feels better Vitals Vital Signs Date Time Temp Pulse Resp B/P Pulse Ox O2 Delivery O2 Flow Rate FiO2 04/01/16 11:13 Nasal Cannula 2.0 04/01/16 11:10 97.9 95 16 100/65 95 97.9 Comments ros as above other sys otherwise neg General: Alert, Oriented X4, No acute distress, Short term memory loss, (nc at perrl) HEENT: Other Lungs: Wheezing (resolved) Cardiovascular: S1, S2 Abdomen: Soft Neuro Exam: Alert Extremities: No Edema Skin: Warm Medications Active Scripts Medications Dose Route/Sig Days Date Category Guaifenesin 100 Mg/5 Ml Liquid 200 Mg PO PRN Q4HRS PRN 03/25/16 Rx [no home meds] 03/21/16 Reported Comments cxr reviewed 01/29 sig improvement in infiltrates Impression . 1. Dyspnea secondary to mild exacerbation of COPD. 2. Post-influenza, left lower lobe bacterial pneumonia. 3. Underlying COPD from 40 years of tobacco use and ae. unknown FEV1. 4. Hypoxia secondary to above. 5. smoker Plan . 1. antibiotics. 2. Continue with oral prednisone with gradual taper. 3. Continue with DuoNebs. 4. We will assess the need for home oxygen at the time of discharge. 5. DVT prophylaxis. 6. bronchodilator 7. ics 8. advised to quit smoking 9. singulair 10 repeat cxr 01/29 with improving infiltrates home in TYRONE Sifuentes MD Apr 01, 2016 13:55
--- NOTE | 2016-04-01 13:55 | PDOC ---
PROGRESS NOTES Chief Complaint Chief Complaint Acute hypoxic respiratory distress ASSESSMENT AND PLAN: 1. LL PNA 2. COPD exacerbation 3. Sepsis 4. Recent influenza, treated - late effect, inflammation plan: fu pulm increase levaquin to 750mg qd cont duoneb 6min walk today or tmr hope to dc tmr add dvt and gi ppx History of Present Illness History of Present Illness cough better, but still feels mild sob, on NC 2L ,no home o2 feels very tired Vitals Vitals Vital Signs Date Time Temp Pulse Resp B/P Pulse Ox O2 Delivery O2 Flow Rate FiO2 04/01/16 11:13 Nasal Cannula 2.0 04/01/16 11:10 97.9 95 16 100/65 95 97.9 Physical Exam General: Alert, Oriented X3, Cooperative, mild distress Heart: Normal S1, Normal S2 Lungs: Wheezing (better, very faint on exam now) Abdomen: Normal bowel sounds, Soft Extremities: No clubbing, No cyanosis, No edema Skin: No rashes Review of Systems Review of Systems no fever, chills, chest pain Assessment and Plan Assessmemt and Plan Problems Medical Problems: (1) Hypoxia Status: Acute (2) SOB (shortness of breath) Status: Acute Problems: Comment Review of Relevant I have reviewed the following items enma (where applicable) has been applied. Medications Current Medications Albuterol/ Ipratropium (Duoneb) 3 ml 1X ONCE NEB Last administered on 21:28; Start 03/26/16 at 21:30; Stop 03/26/16 at 21:31; Status DC Prednisone (Prednisone) 60 mg 1X ONCE PO Last administered on 03/26/16 21:49 ; Start 03/26/16 at 21:30; Stop 03/26/16 at 21:31; Status DC Ondansetron HCl (Zofran) 4 mg PRN Q8HRS PRN IV NAUSEA/VOMITING; Start 03/26/16 at 22:30; Stop 03/27/16 at 22:29; Status DC Morphine Sulfate 2 mg PRN Q2HR PRN IV PAIN; Start 03/26/16 at 22:30; Stop 03/27 at 22:29; Status DC Acetaminophen (Tylenol) 650 mg PRN Q4HRS PRN PO FEVER; Start 03/26/16 at 22:30 ; Stop 03/27/16 at 22:29; Status DC Albuterol/ Ipratropium (Duoneb) 3 ml RTQID NEB ; Start 03/27/16 at 08:00; Stop 03/27/16 at 08:00; Status DC Albuterol/ Ipratropium (Duoneb) 3 ml Q4HRS W/A NEB Last administered on 11:12; Start 03/27/16 at 10:00 Prednisone (Prednisone) 60 mg DAILY PO Last administered on 04/01/16 08:48; Start 03/27/16 at 09:00 Budesonide (Pulmicort) 0.5 mg RTBID NEB Last administered on 04/01/16 07:29; Start 03/27/16 at 08:00 Guaifenesin/ Codeine Phosphate (Robitussin Ac) 5 ml PRN Q6HRS PRN PO COUGH Last administered on 04/01/16 07:31; Start 03/27/16 at 01:00 Oxycodone HCl (Roxicodone) 5 mg PRN Q6HRS PRN PO PAIN; Start 03/27/16 at 01:00 Potassium Chloride (Klor-Con) 20 meq 1X ONCE PO Last administered on 10:01; Start 03/27/16 at 08:00; Stop 03/27/16 at 08:01; Status DC Albuterol/ Ipratropium 3 ml 3 ml 1X ONCE NEB Last administered on 03/27/16 01 :22; Start 03/27/16 at 01:15; Stop 03/27/16 at 01:16; Status DC Levofloxacin/ Dextrose (LEVAQUIN 500mg PREMIX) 100 ml @ 100 mls/hr Q24H IV Last administered on 03/31/16 12:59; Start 03/27/16 at 13:00 Nystatin (Nystop) 1 minh BID TP Last administered on 03/31/16 20:35; Start at 14:00 Zinc Acetate/ Diphenhydramine (Benadryl Extra Strength) 1 minh PRN Q4HRS PRN TP puruitis; Start 03/28/16 at 14:00 Montelukast Sodium (Singulair) 10 mg QHS PO Last administered on 1/16/17at 20: 35; Start 03/29/16 at 21:00 Acetaminophen/ Hydrocodone Bitart (Lortab 5/325) 1 tab PRN Q4HRS PRN PO COUGH Last administered on 04/01/16t 01:05; Start 03/30/16 at 15:15 Throat Lozenges (Cepacol Sore Throat Lozenge) 1 andre PRN Q2HRS PRN PO SORE THROAT; Start 03/30/16 at 22:15; Status UNV Active Scripts Active Guaifenesin 100 Mg/5 Ml Liquid 200 Mg PO PRN Q4HRS PRN Reported [no home meds] Vitals/I & O Vital Sign - Last 24 Hours 03/31/16 03/31/16 03/31/16 03/31/16 15:00 15:46 19:00 19:46 Temp 97.6 97.5 97.6 97.5 Pulse 83 101 Resp 24 20 B/P 115/67 128/80 Pulse Ox 96 95 97 O2 Delivery Nasal Cannula Nasal Cannula Nasal Cannula O2 Flow Rate 2.0 2.0 03/31/16 03/31/16 03/31/16 03/31/16 19:49 20:00 20:37 23:00 Temp 97.0 97.0 Pulse 88 Resp 20 18 B/P 122/76 Pulse Ox 97 96 96 O2 Delivery Nasal Cannula Nasal Cannula Nasal Cannula O2 Flow Rate 2.0 2.0 2.0 03/31/16 04/01/16 04/01/16 04/01/16 23:50 01:05 03:00 07:05 Temp 97.9 97.9 Pulse 73 Resp 20 18 B/P 106/66 Pulse Ox 96 95 O2 Delivery Nasal Cannula Nasal Cannula Nasal Cannula O2 Flow Rate 2.0 2.0 2.0 04/01/16 04/01/16 04/01/16 04/01/16 07:31 08:00 11:10 11:13 Temp 97.9 97.9 Pulse 95 Resp 16 B/P 100/65 Pulse Ox 96 95 O2 Delivery Nasal Cannula Nasal Cannula Nasal Cannula Nasal Cannula O2 Flow Rate 2.0 2.0 2.0 2.0 Intake and Output 03/31/16 03/31/16 04/01/16 15:00 23:00 07:00 Intake Total 480 ml 480 ml 120 ml Balance 480 ml 480 ml 120 ml NEWTON POWERS MD Apr 01, 2016 13:55
[2016-04-01] MEDS: ENOXAPARIN 40 MG/0.4 ML DISP.SYRIN. SQ SCH (14:00)
[2016-04-01] MEDS ORDERED: ALBUTEROL SULFATE 2.5 MG/3 ML NEBU. NEB PRN (14:00)
[2016-04-01 14:43] VITALS: BP 130/92
[2016-04-01 19:00] VITALS: BP 134/81
[2016-04-01] MEDS: FAMOTIDINE 20 MG TABLET. PO SCH (20:15)
[2016-04-01] MEDS: MONTELUKAST SODIUM 10 MG TABLET. PO SCH (20:15)
[2016-04-01 23:00] VITALS: BP 121/74
[2016-04-02 03:00] VITALS: BP 124/69
[2016-04-02 07:00] VITALS: BP 112/70
[2016-04-02] MEDS: IPRATRPIUM/ALBUTEROL 0.5/2.5MG 3 ML NEBU. NEB SCH ×4 (07:23→20:11)
[2016-04-02] MEDS: BUDESONIDE 0.5 MG/2 ML NEBU NEB SCH ×2 (07:23→20:11)
[2016-04-02] MEDS: PREDNISONE 20 MG TABLET PO SCH (07:59)
[2016-04-02] MEDS: NYSTATIN TOPICAL POWDER 15GM BOTTLE. TP SCH ×2 (08:04→21:00)
--- NOTE | 2016-04-02 10:41 | PDOC ---
PULMONARY PROGRESS NOTES Subjective feels better Vitals Vital Signs Date Time Temp Pulse Resp B/P Pulse Ox O2 Delivery O2 Flow Rate FiO2 04/02/16 08:00 Nasal Cannula 2.0 04/02/16 07:25 97 04/02/16 07:00 97.7 77 20 112/70 97.7 Comments ros as above other sys otherwise neg General: Alert, Oriented X4, No acute distress, Short term memory loss, (nc at perrl) HEENT: Other Lungs: Wheezing (resolved) Cardiovascular: S1, S2 Abdomen: Soft Neuro Exam: Alert Extremities: No Edema Skin: Warm Medications Active Scripts Medications Dose Route/Sig Days Date Category Guaifenesin 100 Mg/5 Ml Liquid 200 Mg PO PRN Q4HRS PRN 03/25/16 Rx [no home meds] 03/21/16 Reported Comments cxr reviewed 01/29 sig improvement in infiltrates Impression . 1. Dyspnea secondary to mild exacerbation of COPD. 2. Post-influenza, left lower lobe bacterial pneumonia. 3. Underlying COPD from 40 years of tobacco use and ae. unknown FEV1. 4. Hypoxia secondary to above. 5. smoker Plan . 1. antibiotics. 2. Continue with oral prednisone with gradual taper. 3. Continue with DuoNebs. 4. 6 min walk today 5. DVT prophylaxis. 6. bronchodilator 7. ics 8. advised to quit smoking 9. singulair 10 repeat cxr 01/29 with improving infiltrates home today TYRONE AGUILAR MD Apr 02, 2016 10:40
[2016-04-02 11:00] VITALS: BP 138/82
[2016-04-02 15:00] VITALS: BP 106/91
[2016-04-02] MEDS ORDERED: ONDANSETRON PF 4 MG/2 ML VIAL. IV PRN (15:30)
[2016-04-02] MEDS: ENOXAPARIN 40 MG/0.4 ML DISP.SYRIN. SQ SCH (15:37)
--- NOTE | 2016-04-02 16:29 | PDOC ---
PROGRESS NOTES Chief Complaint Chief Complaint Acute hypoxic respiratory distress ASSESSMENT AND PLAN: 1. LL PNA: on levaquin 2. COPD exacerbation: prednisone taper, nebs 3. Sepsis: resolved 4. Prophylaxis: lovenox, PPI 5. N/V: new. IV antiemetics. hold D/C Vitals Vitals Vital Signs Date Time Temp Pulse Resp B/P Pulse Ox O2 Delivery O2 Flow Rate FiO2 04/02/16 15:22 Room Air 04/02/16 11:20 95 04/02/16 11:00 98.0 66 24 138/82 98.0 04/02/16 08:00 2.0 Physical Exam General: Alert, Cooperative, mild distress Heart: Regular rate Lungs: Clear Abdomen: Normal bowel sounds, Soft Extremities: No edema Skin: No rashes Review of Systems Review of Systems in tears, nauseous. not feeling well at all Comment Review of Relevant I have reviewed the following items enma (where applicable) has been applied. Medications Current Medications Albuterol/ Ipratropium (Duoneb) 3 ml 1X ONCE NEB Last administered on 21:28; Start 03/26/16 at 21:30; Stop 03/26/16 at 21:31; Status DC Prednisone (Prednisone) 60 mg 1X ONCE PO Last administered on 03/26/16 21:49 ; Start 03/26/16 at 21:30; Stop 03/26/16 at 21:31; Status DC Ondansetron HCl (Zofran) 4 mg PRN Q8HRS PRN IV NAUSEA/VOMITING; Start 03/26/16 at 22:30; Stop 03/27/16 at 22:29; Status DC Morphine Sulfate 2 mg PRN Q2HR PRN IV PAIN; Start 03/26/16 at 22:30; Stop 03/27 at 22:29; Status DC Acetaminophen (Tylenol) 650 mg PRN Q4HRS PRN PO FEVER; Start 03/26/16 at 22:30 ; Stop 03/27/16 at 22:29; Status DC Albuterol/ Ipratropium (Duoneb) 3 ml RTQID NEB ; Start 03/27/16 at 08:00; Stop 03/27/16 at 08:00; Status DC Albuterol/ Ipratropium (Duoneb) 3 ml Q4HRS W/A NEB Last administered on 15:21; Start 03/27/16 at 10:00 Prednisone (Prednisone) 60 mg DAILY PO Last administered on 04/01/16 08:48; Start 03/27/16 at 09:00; Stop 04/01/16 at 13:57; Status DC Budesonide (Pulmicort) 0.5 mg RTBID NEB Last administered on 04/02/16 07:23; Start 03/27/16 at 08:00 Guaifenesin/ Codeine Phosphate (Robitussin Ac) 5 ml PRN Q6HRS PRN PO COUGH Last administered on 04/01/16 07:31; Start 03/27/16 at 01:00 Oxycodone HCl (Roxicodone) 5 mg PRN Q6HRS PRN PO PAIN; Start 03/27/16 at 01:00 Potassium Chloride (Klor-Con) 20 meq 1X ONCE PO Last administered on 10:01; Start 03/27/16 at 08:00; Stop 03/27/16 at 08:01; Status DC Albuterol/ Ipratropium 3 ml 3 ml 1X ONCE NEB Last administered on 03/27/16 01 :22; Start 03/27/16 at 01:15; Stop 03/27/16 at 01:16; Status DC Levofloxacin/ Dextrose (LEVAQUIN 500mg PREMIX) 100 ml @ 100 mls/hr Q24H IV Last administered on 03/31/16 12:59; Start 03/27/16 at 13:00; Stop 04/01/16 at 13:55; Status DC Nystatin (Nystop) 1 minh BID TP Last administered on 04/02/16 08:04; Start at 14:00 Zinc Acetate/ Diphenhydramine (Benadryl Extra Strength) 1 minh PRN Q4HRS PRN TP puruitis; Start 03/28/16 at 14:00 Montelukast Sodium (Singulair) 10 mg QHS PO Last administered on 04/01/16 20: 15; Start 03/29/16 at 21:00 Acetaminophen/ Hydrocodone Bitart (Lortab 5/325) 1 tab PRN Q4HRS PRN PO COUGH Last administered on 04/01/16 01:05; Start 03/30/16 at 15:15 Throat Lozenges 1 andre 1 andre PRN Q2HRS PRN PO SORE THROAT; Start 03/30/16 at 22: 15; Status UNV Levofloxacin/ Dextrose (LEVAQUIN 750mg PREMIX) 150 ml @ 100 mls/hr Q24H IV ; Start 04/01/16 at 14:00; Status Cancel Albuterol Sulfate (Ventolin Neb Soln) 2.5 mg PRN Q4HRS PRN NEB SHORTNESS OF BREATH Last administered on 04/02/16 11:18; Start 04/01/16 at 14:00 Famotidine (Pepcid) 20 mg QHS PO Last administered on 04/01/16 20:15; Start at 21:00 Enoxaparin Sodium (Lovenox 40mg Syringe) 40 mg Q24H SQ Last administered on 15:37; Start 04/01/16 at 14:00 Prednisone 40 mg 40 mg DAILY PO Last administered on 04/02/16 07:59; Start at 09:00 Levofloxacin/ Dextrose 150 ml @ 100 mls/hr Q24H IV Last administered on 15:36; Start 04/02/16 at 14:00 Levofloxacin/ Dextrose (LEVAQUIN 250mg PREMIX) 50 ml @ 50 mls/hr 1X ONCE IV Last administered on 04/01/16 15:09; Start 04/01/16 at 14:30; Stop 04/01/16 at 15:29; Status DC Ondansetron HCl (Zofran) 4 mg PRN Q6HRS PRN IV NAUSEA/VOMITING Last administered on 04/02/16 15:26; Start 04/02/16 at 15:30 Active Scripts Active Guaifenesin 100 Mg/5 Ml Liquid 200 Mg PO PRN Q4HRS PRN Reported [no home meds] Vitals/I & O Vital Sign - Last 24 Hours 04/01/16 04/01/16 04/01/16 04/01/16 19:00 19:23 20:00 23:00 Temp 98.2 97.7 98.2 97.7 Pulse 87 88 Resp 18 18 B/P 134/81 121/74 Pulse Ox 96 95 96 O2 Delivery Nasal Cannula Nasal Cannula Nasal Cannula Nasal Cannula O2 Flow Rate 2.0 2.0 2.0 2.0 04/02/16 04/02/16 04/02/16 04/02/16 03:00 07:00 07:25 08:00 Temp 97.7 97.7 97.7 97.7 Pulse 73 77 Resp 18 20 B/P 124/69 112/70 Pulse Ox 100 98 97 O2 Delivery Nasal Cannula Room Air Room Air Nasal Cannula O2 Flow Rate 2.0 2.0 04/02/16 04/02/16 04/02/16 11:00 11:20 15:22 Temp 98.0 98.0 Pulse 66 Resp 24 B/P 138/82 Pulse Ox 96 95 O2 Delivery Room Air Room Air Room Air Intake and Output 04/01/16 04/01/16 04/02/16 15:00 23:00 07:00 Intake Total 460 ml 0 ml Balance 460 ml 0 ml GAYATRI AMY MD Apr 02, 2016 16:29
[2016-04-02 19:19] VITALS: BP 114/73
[2016-04-02] MEDS: MONTELUKAST SODIUM 10 MG TABLET. PO SCH (20:55)
[2016-04-02] MEDS: FAMOTIDINE 20 MG TABLET. PO SCH (20:55)
[2016-04-02 22:51] VITALS: BP 143/92
[2016-04-03 03:03] VITALS: BP 116/67
[2016-04-03 07:29] VITALS: BP 98/68
[2016-04-03] MEDS: BUDESONIDE 0.5 MG/2 ML NEBU NEB SCH (07:49)
[2016-04-03] MEDS: IPRATRPIUM/ALBUTEROL 0.5/2.5MG 3 ML NEBU. NEB SCH ×2 (07:50→11:37)
[2016-04-03] MEDS: PREDNISONE 20 MG TABLET PO SCH (09:28)
[2016-04-03] MEDS: NYSTATIN TOPICAL POWDER 15GM BOTTLE. TP SCH (09:28)
[2016-04-03 10:55] VITALS: BP 100/64
--- NOTE | 2016-04-03 12:29 | PDOC ---
PULMONARY PROGRESS NOTES Subjective feels better Vitals Vital Signs Date Time Temp Pulse Resp B/P Pulse Ox O2 Delivery O2 Flow Rate FiO2 04/03/16 11:37 97 Room Air 04/03/16 10:55 98.1 77 16 100/64 98.1 04/03/16 08:00 2.0 Comments ros as above other sys otherwise neg General: Alert, Oriented X4, No acute distress, Short term memory loss, (nc at perrl) HEENT: Other Lungs: Clear Cardiovascular: S1, S2 Abdomen: Soft Neuro Exam: Alert Extremities: No Edema Skin: Warm Medications Active Scripts Medications Dose Route/Sig Days Date Category Guaifenesin 100 Mg/5 Ml Liquid 200 Mg PO PRN Q4HRS PRN 03/25/16 Rx [no home meds] 03/21/16 Reported Comments cxr reviewed 01/29 sig improvement in infiltrates Impression . 1. Dyspnea secondary to mild exacerbation of COPD. 2. Post-influenza, left lower lobe bacterial pneumonia. 3. Underlying COPD from 40 years of tobacco use and ae. unknown FEV1. 4. Hypoxia secondary to above. 5. smoker Plan . 1. antibiotics. 2. Continue with oral prednisone with gradual taper. 3. Continue with DuoNebs. 4. 6 min walk today 5. DVT prophylaxis. 6. bronchodilator 7. ics 8. advised to quit smoking 9. singulair 10 repeat cxr 01/29 with improving infiltrates home today TYRONE AGUILAR MD Apr 03, 2016 12:29
--- NOTE | 2016-04-03 12:33 | PDOC ---
PROGRESS NOTES Chief Complaint Chief Complaint Acute hypoxic respiratory distress ASSESSMENT AND PLAN: 1. LL PNA: on levaquin 2. COPD exacerbation: prednisone taper, nebs 3. Sepsis: resolved 4. Prophylaxis: lovenox, PPI 5. N/V: resolved Dispo: home today Vitals Vitals Vital Signs Date Time Temp Pulse Resp B/P Pulse Ox O2 Delivery O2 Flow Rate FiO2 04/03/16 11:37 97 Room Air 04/03/16 10:55 98.1 77 16 100/64 98.1 04/03/16 08:00 2.0 Physical Exam General: Alert, Cooperative, mild distress Heart: Regular rate Lungs: Clear Abdomen: Normal bowel sounds, Soft Extremities: No edema Skin: No rashes Review of Systems Review of Systems feels good today, no recurrent nausea or SOB Comment Review of Relevant I have reviewed the following items enma (where applicable) has been applied. Medications Current Medications Albuterol/ Ipratropium (Duoneb) 3 ml 1X ONCE NEB Last administered on 21:28; Start 03/26/16 at 21:30; Stop 03/26/16 at 21:31; Status DC Prednisone (Prednisone) 60 mg 1X ONCE PO Last administered on 03/26/16 21:49 ; Start 03/26/16 at 21:30; Stop 03/26/16 at 21:31; Status DC Ondansetron HCl (Zofran) 4 mg PRN Q8HRS PRN IV NAUSEA/VOMITING; Start 03/26/16 at 22:30; Stop 03/27/16 at 22:29; Status DC Morphine Sulfate 2 mg PRN Q2HR PRN IV PAIN; Start 03/26/16 at 22:30; Stop 03/27 at 22:29; Status DC Acetaminophen (Tylenol) 650 mg PRN Q4HRS PRN PO FEVER; Start 03/26/16 at 22:30 ; Stop 03/27/16 at 22:29; Status DC Albuterol/ Ipratropium (Duoneb) 3 ml RTQID NEB ; Start 03/27/16 at 08:00; Stop 03/27/16 at 08:00; Status DC Albuterol/ Ipratropium (Duoneb) 3 ml Q4HRS W/A NEB Last administered on 11:37; Start 03/27/16 at 10:00 Prednisone (Prednisone) 60 mg DAILY PO Last administered on 04/01/16 08:48; Start 03/27/16 at 09:00; Stop 04/01/16 at 13:57; Status DC Budesonide (Pulmicort) 0.5 mg RTBID NEB Last administered on 04/03/16 07:49; Start 03/27/16 at 08:00 Guaifenesin/ Codeine Phosphate (Robitussin Ac) 5 ml PRN Q6HRS PRN PO COUGH Last administered on 04/01/16 07:31; Start 03/27/16 at 01:00 Oxycodone HCl (Roxicodone) 5 mg PRN Q6HRS PRN PO PAIN; Start 03/27/16 at 01:00 Potassium Chloride (Klor-Con) 20 meq 1X ONCE PO Last administered on 10:01; Start 03/27/16 at 08:00; Stop 03/27/16 at 08:01; Status DC Albuterol/ Ipratropium 3 ml 3 ml 1X ONCE NEB Last administered on 03/27/16 01 :22; Start 03/27/16 at 01:15; Stop 03/27/16 at 01:16; Status DC Levofloxacin/ Dextrose (LEVAQUIN 500mg PREMIX) 100 ml @ 100 mls/hr Q24H IV Last administered on 03/31/16 12:59; Start 03/27/16 at 13:00; Stop 04/01/16 at 13:55; Status DC Nystatin (Nystop) 1 minh BID TP Last administered on 04/03/16 09:28; Start at 14:00 Zinc Acetate/ Diphenhydramine (Benadryl Extra Strength) 1 minh PRN Q4HRS PRN TP puruitis; Start 03/28/16 at 14:00 Montelukast Sodium (Singulair) 10 mg QHS PO Last administered on 04/02/16 20: 55; Start 03/29/16 at 21:00 Acetaminophen/ Hydrocodone Bitart (Lortab 5/325) 1 tab PRN Q4HRS PRN PO COUGH Last administered on 04/01/16 01:05; Start 03/30/16 at 15:15 Throat Lozenges 1 andre 1 andre PRN Q2HRS PRN PO SORE THROAT; Start 03/30/16 at 22: 15; Status UNV Levofloxacin/ Dextrose (LEVAQUIN 750mg PREMIX) 150 ml @ 100 mls/hr Q24H IV ; Start 04/01/16 at 14:00; Status Cancel Albuterol Sulfate (Ventolin Neb Soln) 2.5 mg PRN Q4HRS PRN NEB SHORTNESS OF BREATH Last administered on 04/02/16 11:18; Start 04/01/16 at 14:00 Famotidine (Pepcid) 20 mg QHS PO Last administered on 04/02/16 20:55; Start at 21:00 Enoxaparin Sodium (Lovenox 40mg Syringe) 40 mg Q24H SQ Last administered on 15:37; Start 04/01/16 at 14:00 Prednisone 40 mg 40 mg DAILY PO Last administered on 04/03/16 09:28; Start at 09:00 Levofloxacin/ Dextrose 150 ml @ 100 mls/hr Q24H IV Last administered on 15:36; Start 04/02/16 at 14:00 Levofloxacin/ Dextrose (LEVAQUIN 250mg PREMIX) 50 ml @ 50 mls/hr 1X ONCE IV Last administered on 04/01/16 15:09; Start 04/01/16 at 14:30; Stop 04/01/16 at 15:29; Status DC Ondansetron HCl (Zofran) 4 mg PRN Q6HRS PRN IV NAUSEA/VOMITING Last administered on 04/02/16 15:26; Start 04/02/16 at 15:30 Active Scripts Active Guaifenesin 100 Mg/5 Ml Liquid 200 Mg PO PRN Q4HRS PRN Reported [no home meds] Vitals/I & O Vital Sign - Last 24 Hours 04/02/16 04/02/16 04/02/16 04/02/16 15:00 15:22 19:19 20:00 Temp 97.6 98.0 97.6 98.0 Pulse 98 87 Resp 22 16 B/P 106/91 114/73 Pulse Ox 96 94 O2 Delivery Room Air Room Air Nasal Cannula O2 Flow Rate 2.0 1/18/17 1/18/17 1/18/17 1/19/17 20:13 20:13 22:51 03:03 Temp 98.1 97.9 98.1 97.9 Pulse 87 85 Resp B/P 143/92 116/67 Pulse Ox 98 98 97 95 O2 Delivery Room Air Room Air Room Air Room Air 04/03/16 04/03/16 04/03/16 04/03/16 07:29 07:52 08:00 10:55 Temp 98.0 98.1 98.0 98.1 Pulse 79 77 Resp B/P 98/68 100/64 Pulse Ox 96 97 95 O2 Delivery Room Air Room Air Nasal Cannula Room Air O2 Flow Rate 2.0 04/03/16 11:37 Pulse Ox 97 O2 Delivery Room Air Intake and Output 04/02/16 04/02/16 04/03/16 15:00 23:00 07:00 Intake Total 600 ml 680 ml 700 ml Balance 600 ml 680 ml 700 ml GAYATRI MAY MD Apr 03, 2016 12:33
[2016-04-03] MEDS ORDERED: PRED-220 PO (13:54)
[2016-04-03] MEDS ORDERED: MONT10TA9 PO (13:54)
[2016-04-03] MEDS ORDERED: FAMO20TA5 PO (13:57)
[2016-04-03] MEDS ORDERED: GUAI5LIQ PO (13:57)
--- NOTE | 2016-04-03 13:58 | DISCH ---
DISCHARGE INSTRUCTIONS Condition on Discharge Condition on Discharge: Stable Activity After Discharge Activity Instructions for Disc: No restrictions Diet after Discharge Diet after Discharge: Cardiac (be good to your body!) Contacting the DRCornell after DC Call your doctor for: If your condition worsens Follow-Up Follow up with: PCP in 1 week GAYATRI MAY MD Apr 03, 2016 13:58
[2016-04-03] MEDS ORDERED: LEVOFLOXACIN 750 MG TABLET. PO SCH (16:00)
--- NOTE | 2016-04-04 20:17 | DS ---
DATE OF DISCHARGE: 04/03/2016 CHIEF COMPLAINT: Acute hypoxic respiratory failure. HOSPITAL COURSE: The patient is a 55-year-old smoker who presented with severe respiratory distress and hypoxia. She was diagnosed with COPD exacerbation in addition to left lower lobe pneumonia. She was started on Levaquin as well as steroids, nebs, and supplemental O2 for her respiratory issues. She slowly improved. A component of sepsis actually resolved. Prior to discharge, she developed some nausea, which actually delayed discharge by 1 day. This resolved with a single dose of Zofran and the patient was finally discharged on the . PHYSICAL EXAMINATION: Please refer to note from same day. DISCHARGE CONDITION: Stable. DISCHARGE DISPOSITION: To home. DISCHARGE DIAGNOSES: Left lower lobe pneumonia, chronic obstructive pulmonary disease exacerbation. DISCHARGE MEDICATIONS: Please refer to MAR. DISCHARGE INSTRUCTIONS: The patient will follow up with PCP in 1-2 weeks. GAYATRI MAY MD DR: UR/nts JOB#: [id number] / [id number] PEDRO Archibald DO
== END 2016-04-03 15:45 | disposition home or self-care (01) | DRG 871 ==
LOC: ER 19:59 → 2 NORTH 22:27 → 5 SOUTH 03-27 18:33
PROVIDERS: ADMIT Internal Medicine; ATTEND Internal Medicine
DX: A41.9 Sepsis, unspecified organism (principal); J11.00 Influenza due to unidentified influenza virus with unspecified type of pneumonia; J15.9 Unspecified bacterial pneumonia; J96.01 Acute respiratory failure with hypoxia; J44.1 Chronic obstructive pulmonary disease with (acute) exacerbation; J44.0 Chronic obstructive pulmonary disease with (acute) lower respiratory infection; F17.200 Nicotine dependence, unspecified, uncomplicated; G47.33 Obstructive sleep apnea (adult) (pediatric); E66.9 Obesity, unspecified; Z68.36 Body mass index [BMI] 36.0-36.9, adult; Z88.6 Allergy status to analgesic agent
CPT/HCPCS: 36415; 71010; 71020; 80048; 84484; 85007; 85027; 93005; 94250; 94620; 94640; 94760; J1650; J1956; J2405; J7512; J7620; 99285-25

== ENCOUNTER → 2017-03-05 | Outpatient (CLI) | payer OTHER ==
[~2017-03-05] MED LIST changes: +FAMO20TA5 PO; +GUAI5LIQ PO; +MONT10TA9 PO; +PRED-220 PO
--- NOTE | 2017-03-05 15:49 | RAD ---
DATE: 03/05/2017 EXAM: DIGITAL SCREEN BILAT W/CAD HISTORY: Screening study. COMPARISON: 02/28/2011 This study was interpreted with the benefit of Computerized Aided Detection (CAD). The breast parenchyma shows scattered fibroglandular densities. Breast parenchyma level B. FINDINGS: Digital MLO and CC mammograms of both breasts were obtained. An additional MLO digital mammogram of the right breast was obtained. Comparison study is dated 02/28/2011. The breast parenchyma is composed of scattered fibroglandular densities which can obscure a lesion on mammography. No spiculated mass is seen. No malignant appearing calcification or area of architectural distortion is noted. Benign-appearing calcifications are seen within both breasts, unchanged. Since the previous examination there has been no significant interval change. IMPRESSION: BI-RADS Category 1, negative. There is no mammographic evidence malignancy. Routine yearly screening mammography is recommended for follow-up. BI-RADS CATEGORY: 1 NEGATIVE RECOMMENDED FOLLOW-UP: 12M 12 MONTH FOLLOW-UP PQRS compliance statement: Patient information was entered into a reminder system with a target due date 03/05/2018 for the next mammogram. Mammography is a sensitive method for finding small breast cancers, but it does not detect them all and is not a substitute for careful clinical examination. A negative mammogram does not negate a clinically suspicious finding and should not result in delay in biopsying a clinically suspicious abnormality. "Our facility is accredited by the [employer] Mammography Program."
== END | disposition home or self-care (01) ==
LOC: MAMMO 10:25
PROVIDERS: ATTEND Family Medicine
DX: Z12.31 Encounter for screening mammogram for malignant neoplasm of breast (principal)
CPT/HCPCS: G0202; 77067

== ENCOUNTER 2018-04-28 23:02 | Emergency (ER) | payer SELFPAY ==
[~2018-04-28] VITALS: Ht 167.6 cm; Wt 99.8 kg
[2018-04-29 00:22] VITALS: BP 163/104
[2018-04-29] MEDS ORDERED: PRED50TA PO (01:38)
[2018-04-29] MEDS ORDERED: HYDR25TA PO (01:38)
--- NOTE | 2018-04-29 01:38 | PHYS DOC ---
Past Medical History Past Medical History: Anxiety, Other Additional Past Medical Histor: VERTIGO, influenza a, KEVEN Past Surgical History: Knee Replacement, Other Additional Past Surgical Histo: R. BREAST LUMPECTOMY Alcohol Use: None Drug Use: None Adult General Chief Complaint Chief Complaint: SKIN PROBLEM HPI HPI Patient is a 57 year old female complains of skin rash. This started 5 days ago. No difficulty breathing. It improves with topical Benadryl. But it seems to migrate to other areas. Patient was recently admitted at [facility] a week before the onset of these symptoms for chest pains and had cardiac studies that included dye. Patient since that time has been staying with her daughter. No identifiable triggers such as new lotions, detergents, skin creams eyedrops, herbals, soaps. Symptoms are mild to moderate in intensity. Patient notes that she's had some nausea, vomiting, and diarrhea over the past 24 hours but her grandson is sick and the symptoms are resolving.[ ] Review of Systems Review of Systems Constitutional: Denies fever or chills [] Eyes: Denies change in visual acuity, redness, or eye pain [] HENT: Denies nasal congestion or sore throat [] Respiratory: Denies cough or shortness of breath [] Cardiovascular: No chest pain or palpitations[] GI: Denies abdominal pain, no bloody stools, see history of present illness[] : Denies dysuria or hematuria [] Musculoskeletal: Denies back pain or joint pain [] Integument: See history of present illness[] Neurologic: Denies headache, focal weakness or sensory changes [] Endocrine: Denies polyuria or polydipsia [] All other systems were reviewed and found to be within normal limits, except as documented in this note. Allergies Allergies Allergies Coded Allergies Type Severity Reaction Last Updated Verified aspirin Allergy Intermediate SWELLING AND RASH 03/20/16 Yes Physical Exam Physical Exam Constitutional: Well developed, well nourished, no acute distress, non-toxic appearance. [] HENT: Normocephalic, atraumatic, bilateral external ears normal, oropharynx moist, no oral exudates, nose normal. [] Eyes: PERRLA, EOMI, conjunctiva normal, no discharge. [] Neck: Normal range of motion, no tenderness, supple, no stridor. [] Cardiovascular:Heart rate regular rhythm, no murmur [] Lungs & Thorax: Bilateral breath sounds clear to auscultation [] Abdomen: Bowel sounds normal, soft, no tenderness, no masses, no pulsatile masses. [] Skin: Warm, dry, erythematous urticaria on her chest, no petechiae, no ulcers. [ ] Back: No tenderness, no CVA tenderness. [] Extremities: No tenderness, no cyanosis, no clubbing, ROM intact, no edema. [] Neurologic: Alert and oriented X 3, normal motor function, normal sensory function, no focal deficits noted. [] Psychologic: Affect normal, judgement normal, mood normal. [] Current Patient Data Vital Signs Vital Signs Date Time Temp Pulse Resp B/P (MAP) Pulse Ox O2 Delivery O2 Flow Rate FiO2 04/29/18 00:22 98.1 116 16 163/104 (123) 96 Room Air 98.1 EKG EKG [] Radiology/Procedures Radiology/Procedures [] Course & Med Decision Making Course & Med Decision Making Pertinent Labs and Imaging studies reviewed. (See chart for details) Medical decision making: There is no evidence of staph scalded skin syndrome, petechiae, Daly-Ajay syndrome, toxic epidermal necrolysis, nor other significant rash.[] Dragon Disclaimer Dragon Disclaimer This electronic medical record was generated, in whole or in part, using a voice recognition dictation system. Departure Departure Impression: Primary Impression: Urticaria Disposition: 01 HOME, SELF-CARE Referrals: PEDRO MONTERO DO (PCP) Follow-up in 2 days Patient Instructions: Rash Additional Instructions: Follow-up with your regular doctor in 2 days. Return to the ER if worsening rash , you develop a fever of more than 101, difficulty breathing, or any other concerns. Scripts Prednisone (PREDNISONE) 50 Mg Tablet 50 MG PO DAILY for 7 Days, #7 TAB Prov: CATHY WATSON DO 04/29/18 Hydroxyzine Hcl (HYDROXYZINE HCL) 25 Mg Tablet 25 MG PO QID, #30 TAB Prov: CATHY WATSON DO 04/29/18 CATHY WATSON DO Apr 29, 2018 01:38
[2018-04-29] MEDS ORDERED: predniSONE 20 MG TABLET PO ONE (02:00)
[2018-04-30] MEDS ORDERED: DIPH25CA58 PO (12:48)
[2018-04-30] MEDS ORDERED: PRED50TA PO (12:48)
== END 2018-04-29 02:13 | disposition home or self-care (01) ==
LOC: ER 23:02
DX: L50.9 Urticaria, unspecified (principal); R11.2 Nausea with vomiting, unspecified; R19.7 Diarrhea, unspecified; F41.9 Anxiety disorder, unspecified; G47.33 Obstructive sleep apnea (adult) (pediatric); Z96.659 Presence of unspecified artificial knee joint; Z88.6 Allergy status to analgesic agent
CPT/HCPCS: 99283; J7512

== ENCOUNTER 2018-04-30 09:23 | Emergency (ER) | payer SELFPAY ==
[~2018-04-30] VITALS: Ht 170.2 cm; Wt 104.3 kg
[~2018-04-30 09:23] MED LIST changes: +HYDR25TA PO; +PRED50TA PO
[2018-04-30] MEDS ORDERED: diphenhydrAMINE HCL 25 MG CAPSULE PO ONE (09:45)
[2018-04-30] MEDS ORDERED: predniSONE 10 MG TABLET PO ONE (09:45)
[2018-04-30] MEDS ORDERED: IV NORMAL SALINE 1000ML BAG 1,000 ML IV ONE (09:45)
--- NOTE | 2018-04-30 09:46 | PHYS DOC ---
Past Medical History Past Medical History: Anxiety, Other Additional Past Medical Histor: VERTIGO, influenza a, KEVEN Past Surgical History: Knee Replacement, Other Additional Past Surgical Histo: R. BREAST LUMPECTOMY Smoking: Cigarettes Alcohol Use: None Drug Use: None Adult General Chief Complaint Chief Complaint: ALLERGIC REACTION HPI HPI 57-year-old female presenting to the emergency department after having an allergic reaction with an unknown source. She had been reaction like this earlier this week was given Benadryl which improved her symptoms substantially. Today she started having hives all over her body with mild amount of face swelling so she came in for evaluation. Currently her rash is resolved and she is feeling much better. She does state she is anxious. Onset today. Location generalized. Duration intermittent. Currently the patient denies tongue swelling if occult a breathing or any pain. She reports feeling mildly anxious because of the allergic reaction. Review of systems is negative for abdominal pain nausea vomiting fevers chills neck stiffness confusion cyanosis or lethargy. All other review of systems is negative unless otherwise noted in history of present illness. ED course: 49-year-old female presenting with an allergic reaction with hives now resolved and now asymptomatic. On arrival she is tachycardic which could be secondary to her anxiety. She was given IV fluids and an EKG along with blood work and chest x-ray were obtained. CBC and chemistry panel are negative. Urinalysis is negative. D-dimer is quite elevated. Head CTA is negative for acute pulmonary embolism. On reexamination the patient continues to be comfortable appearing without any facial swelling. We will discharge her home with Benadryl and prednisone to follow-up with her doctor in 2-3 days.The patient has been examined and was not found to have an emergency medical condition. The patient was then discharged home in stable condition to follow up with their primary care physician over the next 1-2 days. They were to return if their symptoms worsened or if they were concerned for any reason. They were also instructed to return to the emergency department if they were unable to get the recommended and appropriate follow-up. [id number] discharge instructions and return precautions were given. Patient's questions were answered to their satisfaction. Patient is comfortable with plan. Review of Systems Review of Systems SEE ABOVE. Current Medications Current Medications Current Medications Medications (Trade) Dose Ordered Sig/Eddie Start Time Stop Time Status Last Admin Dose Admin Diphenhydramine HCl (Benadryl) 25 mg 1X ONCE 04/30/18 09:45 04/30/18 09:49 DC 04/30/18 10:20 25 MG Info (CONTRAST GIVEN -- Rx MONITORING) 1 each PRN DAILY PRN 04/30/18 12:00 05/02/18 11:59 Iohexol (Omnipaque 350 Mg/ml) 100 ml 1X ONCE 04/30/18 12:00 04/30/18 12:01 DC Prednisone (Prednisone) 50 mg 1X ONCE 04/30/18 09:45 04/30/18 09:49 DC 04/30/18 10:19 50 MG Sodium Chloride 1,000 ml @ 1,000 mls/hr 1X ONCE 04/30/18 09:45 04/30/18 10:44 DC 04/30/18 10:27 1,000 MLS/HR Allergies Allergies Allergies Coded Allergies Type Severity Reaction Last Updated Verified aspirin Allergy Intermediate SWELLING AND RASH 03/20/16 Yes Physical Exam Physical Exam SEE ABOVE Constitutional: Well developed, well nourished, no acute distress, non-toxic appearance. HENT: Normocephalic, atraumatic, bilateral external ears normal, oropharynx moist, no oral exudates, nose normal. []There is no swelling to the face appreciable. No tongue swelling. She is breathing resting comfortably examination room. Eyes: PERRLA, EOMI, conjunctiva normal, no discharge. Neck: Normal range of motion, no tenderness, supple, no stridor. [] Cardiovascular:Heart rate regular rhythm, no murmur Lungs & Thorax: Bilateral breath sounds clear to auscultation []patient is breathing comfortably in the examination room without any wheezing on pulmonary auscultation. Abdomen: Bowel sounds normal, soft, no tenderness, no masses, no pulsatile masses. [] Skin: Warm, dry, no erythema, no rash. Back: No tenderness, no CVA tenderness. [] Extremities: No tenderness, no cyanosis, no clubbing, ROM intact, no edema. [] The patient does not have a rash. Neurologic: Alert and oriented X 3, normal motor function, normal sensory function, no focal deficits noted. [] Psychologic: Affect normal, judgement normal, mood normal. [] Current Patient Data Vital Signs Vital Signs Date Time Temp Pulse Resp B/P (MAP) Pulse Ox O2 Delivery O2 Flow Rate FiO2 04/30/18 11:19 96 12 152/76 (101) 98 Room Air 04/30/18 09:33 97.9 97.9 Lab Values Laboratory Tests Test 04/30/18 10:05 04/30/18 10:16 Urine Collection Type Unknown Urine Color Yellow Urine Clarity Clear Urine pH 6.0 Urine Specific [place] 1.020 Urine Protein Negative mg/dL (NEG-TRACE) Urine Glucose (UA) Negative mg/dL (NEG) Urine Ketones (Stick) Negative mg/dL (NEG) Urine Blood Negative (NEG) Urine Nitrite Negative (NEG) Urine Bilirubin Negative (NEG) Urine Urobilinogen Dipstick 1.0 mg/dL (0.2 mg/dL) Urine Leukocyte Esterase Negative (NEG) Urine RBC 0 /HPF (0-2) Urine WBC 0 /HPF (0-4) Urine Squamous Epithelial Cells Few /LPF Urine Bacteria 0 /HPF (0-FEW) White Blood Count 6.4 x10^3/uL (4.0-11.0) Red Blood Count 5.05 x10^6/uL (3.50-5.40) Hemoglobin 14.6 g/dL (12.0-15.5) Hematocrit 44.3 % (36.0-47.0) Mean Corpuscular Volume 88 fL (79-100) Mean Corpuscular Hemoglobin 29 pg (25-35) Mean Corpuscular Hemoglobin Concent 33 g/dL (31-37) Red Cell Distribution Width 13.6 % (11.5-14.5) Platelet Count 217 x10^3/uL (140-400) Neutrophils (%) (Auto) 49 % (31-73) Lymphocytes (%) (Auto) 43 % (24-48) Monocytes (%) (Auto) 6 % (0-9) Eosinophils (%) (Auto) 2 % (0-3) Basophils (%) (Auto) 0 % (0-3) Neutrophils # (Auto) 3.1 x10^3uL (1.8-7.7) Lymphocytes # (Auto) 2.7 x10^3/uL (1.0-4.8) Monocytes # (Auto) 0.4 x10^3/uL (0.0-1.1) Eosinophils # (Auto) 0.1 x10^3/uL (0.0-0.7) Basophils # (Auto) 0.0 x10^3/uL (0.0-0.2) D-Dimer (Blanca) 3.22 ug/mlFEU (0.00-0.50) H Sodium Level 142 mmol/L (136-145) Potassium Level 3.3 mmol/L (3.5-5.1) L Chloride Level 104 mmol/L (98-107) Carbon Dioxide Level 28 mmol/L (21-32) Anion Gap 10 (6-14) Blood Urea Nitrogen 17 mg/dL (7-20) Creatinine 0.9 mg/dL (0.6-1.0) Estimated GFR (Cockcroft-Gault) 64.3 Glucose Level 124 mg/dL (70-99) H Calcium Level 9.1 mg/dL (8.5-10.1) Total Bilirubin 0.3 mg/dL (0.2-1.0) Direct Bilirubin 0.1 mg/dL (0.0-0.2) Aspartate Amino Transferase (AST) 15 U/L (15-37) Alanine Aminotransferase (ALT) 23 U/L (14-59) Alkaline Phosphatase 119 U/L (46-116) H Troponin I Quantitative < 0.017 ng/mL (0.000-0.055) RY-Kwn-I-Type Natriuretic Peptide 40 pg/mL (0-124) Total Protein 7.7 g/dL (6.4-8.2) Albumin 3.5 g/dL (3.4-5.0) Lipase 100 U/L (73-393) Laboratory Tests 04/30/18 10:16 Laboratory Tests 04/30/18 10:16 EKG EKG [] Radiology/Procedures Radiology/Procedures [] Course & Med Decision Making Course & Med Decision Making Pertinent Labs and Imaging studies reviewed. (See chart for details) [] Dragon Disclaimer Dragon Disclaimer This electronic medical record was generated, in whole or in part, using a voice recognition dictation system. Departure Departure Impression: Primary Impression: Allergic reaction Disposition: 01 HOME, SELF-CARE Condition: STABLE Referrals: PEDRO MONTERO DO (PCP) Patient Instructions: Allergies, Generic Additional Instructions: Thank you for allowing us to participate in your care today. Return to the emergency department you have any new or worsening symptoms, or if you are concerned for any reason. Return to emergency department if you have any new or concerning symptoms including but not limited to fever, chills, nausea, vomiting, intractable pain, any new rashes, chest pain, shortness of air , uncontrolled bleeding, difficulty breathing, and/or vision loss. Follow up with your primary care physician within 1-2 days. Call your Primary Doctor tomorrow and inform them of your visit today. If you do not have a primary care provider we are happy to provide you with a list of our primary care providers contact information. This condition should be evaluated by your primary care physician and any recommended consulting services for continued management within 2 days after discharge. If at any time, you are having difficulty getting into your primary care doctor or a specialist, return to the emergency department. Scripts Diphenhydramine Hcl (BENADRYL) 25 Mg Capsule 25 MG PO TID PRN PRN for ALLERGIES, #10 CAP 0 Refills Prov: KARTIK KENT MD 04/30/18 Prednisone (PREDNISONE) 50 Mg Tablet 1 TAB PO DAILY, #5 TAB Prov: KARTIK KENT MD 04/30/18 KARTIK KENT MD Apr 30, 2018 09:46
[2018-04-30 10:28] LABS: BASO % 0 % (0-3); EOS # 0.1 x10^3/uL (0.0-0.7); EOS % 2 % (0-3); HEMATOCRIT 44.3 % (36.0-47.0); HEMOGLOBIN 14.6 g/dL (12.0-15.5); LYMPH # 2.7 x10^3/uL (1.0-4.8); LYMPH % 43 % (24-48); MEAN CORPUSCULAR HEMOGLOBIN 29 pg (25-35); MEAN CORPUSCULAR HGB CONC 33 g/dL (31-37); MEAN CORPUSCULAR VOLUME 88 fL (79-100); MONO # 0.4 x10^3/uL (0.0-1.1); MONO % 6 % (0-9); NEUT # 3.1 x10^3uL (1.8-7.7); NEUT % 49 % (31-73); PLATELET COUNT 217 x10^3/uL (140-400); RED BLOOD COUNT 5.05 x10^6/uL (3.50-5.40); RED CELL DISTRIBUTION WIDTH 13.6 % (11.5-14.5); WHITE BLOOD COUNT 6.4 x10^3/uL (4.0-11.0)
--- NOTE | 2018-04-30 10:36 | RAD ---
Portable chest, 04/30/2018: HISTORY: Chest pain Comparison is made to a study from 03/31/2016. The heart size and pulmonary vascularity are normal. No pulmonary infiltrate is seen. There is no evidence of pleural fluid. IMPRESSION: No acute cardiopulmonary abnormality is detected. Electronically signed by: Baron Connelly MD (04/30/2018 10:33 AM) [facility]
[2018-04-30 10:39] LABS: CALCIUM 9.1 mg/dL (8.5-10.1); CREATININE 0.9 mg/dL (0.6-1.0); GFR 64.3; POTASSIUM 3.3 mmol/L (3.5-5.1)
[2018-04-30 10:44] LABS: ALBUMIN 3.5 g/dL (3.4-5.0); DIRECT BILIRUBIN 0.1 mg/dL (0.0-0.2); TOTAL BILIRUBIN 0.3 mg/dL (0.2-1.0); TOTAL PROTEIN 7.7 g/dL (6.4-8.2)
[2018-04-30 11:56] LABS: BILIRUBIN,URINE NEGATIVE (NEG); CLARITY,URINE CLEAR; COLOR,URINE YELLOW; NITRITE,URINE NEGATIVE (NEG); PROTEIN,URINE NEGATIVE (NEG-TRACE)
[2018-04-30] MEDS ORDERED: CONTRAST GIVEN. MC PRN (12:00)
[2018-04-30] MEDS ORDERED: IOHEXOL 350 MG/ML 100 ML VIAL. IV ONE (12:00)
[2018-04-30 12:14] LABS: BACTERIA,URINE 0 /HPF (0-FEW); RBC,URINE 0 /HPF (0-2); SQUAMOUS EPITHELIAL CELL,UR FEW /LPF; WBC,URINE 0 /HPF (0-4)
--- NOTE | 2018-04-30 12:34 | RAD ---
PQRS Compliance statement: One or more of the following individualized dose reduction techniques were utilized for this examination: 1. Automated exposure control. 2. Adjustment of the mA and/or kV according to patient size. 3. Use of iterative reconstruction technique. Indication:CHEST PAIN ELEV D-DIMER OMNI 350 100ML, NO PRIORS TECHNIQUE: CT angiogram of the chest with IV contrast with multiplanar MIP reformats. COMPARISON:None FINDINGS: Slightly suboptimal PE study for evaluation of subsegmental arteries. No central or segmental filling defects in the pulmonary arteries. Heart is normal in size. No pericardial or pleural effusion. Clear neck base. No enlarged axillary, mediastinal or hilar adenopathy. Calcified right hilar lymph nodes likely sequela of old healed granulomatous disease. Central airways are patent. 3 mm nodule in the right middle lobe (series 3 image 76). Diffuse hepatic steatosis. Visualized sections through the spleen, gallbladder, pancreas, adrenals and kidneys within normal limits. No suspicious bony lesion. IMPRESSION: 1. Slightly suboptimal PE study for evaluation of subsegmental arteries. No central or segmental PE. 2. No pneumonia or imaging evidence of pulmonary infarct. 3. Hepatic steatosis. Electronically signed by: Triston Zaldivar DO (04/30/2018 12:31 PM) [id number]
[2018-04-30] MEDS ORDERED: PRED50TA PO (12:48)
[2018-04-30] MEDS ORDERED: DIPH25CA58 PO (12:48)
[2018-04-30 13:52] VITALS: BP 142/63
--- NOTE | 2018-05-03 14:01 | EKG ---
[facility] [address] [place] [address] Test Date: 2018-04-30 Test Time: 10:00:16 Pat Name: MELY GRAY Department: Room: Gender: [employer]'S Helper: : 1960 Requested By: KARTIK KENT Order Number: [id number] Reading MD: Cruzito Bhagat Measurements Intervals [place]abbitt Rate: P: PA: QRS: QRSD: T: QT: QTc: Interpretive Statements Compared to ECG 03/26/2016 21:33:53 Sinus rhythm no longer present Electronically Signed On 05-05-2018 8:41:33 ASBESTOS HANDLER by Cruzito Bhagat
== END 2018-04-30 14:05 | disposition home or self-care (01) ==
LOC: ER 09:24
DX: T78.40XA Allergy, unspecified, initial encounter (principal); F41.9 Anxiety disorder, unspecified; F17.210 Nicotine dependence, cigarettes, uncomplicated; G47.33 Obstructive sleep apnea (adult) (pediatric); Z96.659 Presence of unspecified artificial knee joint; Z88.6 Allergy status to analgesic agent; X58.XXXA Exposure to other specified factors, initial encounter
CPT/HCPCS: 36415; 71045; 71275; 80048; 80076; 81001; 83690; 83880; 84484; 85025; 85379; 93005; 99284; J7030; J7512; Q0163

== ENCOUNTER → 2020-02-03 | Outpatient (CLI) | payer OTHER ==
[~2020-02-03] MED LIST changes: +ACET-2061 PO; -ACET325T16 PO; +DIPH25CA58 PO; +MONT10TA49 PO; -MONT10TA9 PO
--- NOTE | 2020-02-03 14:46 | RAD ---
C-spine 2 views INDICATION: Chronic neck pain. COMPARISON: No relevant comparisons currently available. FINDINGS: AP and lateral views of the cervical spine show mild straightening of the cervical spine down to C6-C7. The cervicothoracic junction is not as well seen on the lateral view. There are multilevel disc and facet degenerative changes most conspicuous at C5-C6 and C6-C7. No fracture is apparent. No malalignment is seen. There are facet hypertrophic changes most conspicuous in the upper cervical spine, notably at C2-C3 and C3-C4. The soft tissues show ossification in the dorsal paraspinal soft tissues. IMPRESSION: C-spine degenerative changes with no malalignment or fracture and no aggressive osseous lesions seen. Cervicothoracic junction is limited in assessment due to overlap with thoracic inlet soft tissues. If indicated, more detailed evaluation could be pursued with MRI or CT, preferably with cervical myelogram technique. Electronically signed by: Bryce Mtz MD (02/03/2020 2:43 PM) [id number]
== END ==
LOC: RAD 09:56
PROVIDERS: ATTEND Family Medicine
DX: M47.812 Spondylosis without myelopathy or radiculopathy, cervical region (principal); G89.29 Other chronic pain
CPT/HCPCS: 72040

== ENCOUNTER → 2020-04-11 | Outpatient (CLI) | payer OTHER ==
--- NOTE | 2020-04-11 15:01 | RAD ---
EXAM: XR LUMBAR SPINE 2-3V 04/11/2020 8:56 AM CLINICAL INDICATION: Low back pain COMPARISON: None TECHNIQUE: 2 views of the lumbar spine FINDINGS: There 5 nonrib-bearing lumbar vertebral bodies. No acute fracture. Alignment is normal. Th ere is moderate disc space narrowing at L5-S1 and mild disc space narrowing elsewhere. Mild degenerat josiah endplate changes and small anterior osteophytes at multiple levels. Advanced facet arthrosis at L 4-L5 and L5-S1. IMPRESSION: 1. Multilevel degenerative disc disease, greatest at L5-S1 where it is moderate. 2. Advanced facet arthrosis at L4-L5 and L5-S1. Electronically signed by: Margarita Campbell MD (04/11/2020 2:58 PM) [id number]
--- NOTE | 2020-04-11 15:03 | RAD ---
EXAM: XR FOOT_LEFT 2 VIEWS 04/11/2020 8:56 AM CLINICAL INDICATION: Low back pain, left foot pain COMPARISON: None TECHNIQUE: 2 views of the left foot FINDINGS: No acute fracture. Alignment is normal. Joint spaces are maintained. No erosions or produc tive changes. There is a large calcaneal enthesophyte at the Achilles tendon insertion with mild thic kening of the Achilles tendon stripe adjacent to this. Tiny plantar calcaneal enthesophyte. IMPRESSION: 1. No acute osseous abnormality or degenerative joint disease. 2. Large calcaneal enthesophyte at the Achilles tendon insertion with mild thickening of the Achilles tendon. Electronically signed by: Margarita Campbell MD (04/11/2020 3:00 PM) [id number]
== END ==
LOC: RAD 08:41
PROVIDERS: ATTEND Surgery
DX: M17.12 Unilateral primary osteoarthritis, left knee (principal); M47.817 Spondylosis without myelopathy or radiculopathy, lumbosacral region; M51.37 Other intervertebral disc degeneration, lumbosacral region; M48.07 Spinal stenosis, lumbosacral region; M77.32 Calcaneal spur, left foot; M25.78 Osteophyte, vertebrae
CPT/HCPCS: 72100; 73620